=== PATIENT | female | born 1965 | race Caucasian/White ===

== ENCOUNTER 2016-11-20 10:16 | Emergency (ER) | payer MEDICAID ==
--- NOTE | 2016-11-20 10:35 | ER Document Report ---
HPI - HPI Patient complains to provider of: feel bad Onset: Other - Thursday Onset/Duration: Gradual Pain Level: 5 Context: 51-year-old nonsmoking type II diabetic (insulin) female complaining of generalized body aches with sore throat that started Thursday while she was in a car when someone smoke a cigarette. Thursday she felt more sick and Thursday she saw Dr. Madison and was told that she had a viral illness. She is not drinking much fluid with mild nausea. No vomiting. No shortness of breath or chest pain. No constipation or diarrhea. She feels like when she lays down she has rattling in her chest. Associated Symptoms: None Exacerbated by: Denies Relieved by: Denies Similar symptoms previously: Yes Recently seen / treated by doctor: Yes - ROS ROS below otherwise negative: Yes Systems Reviewed and Negative: Yes All other systems reviewed and negative - REPRODUCTIVE Reproductive: DENIES: : - DERM Skin Color: Normal Past Medical History - General Information source: Patient - Social History Smoking Status: Never Smoker Frequency of alcohol use: None Drug Abuse: None Lives with: Family Family History: CAD - correction family history pertinent Patient has suicidal ideation: No Patient has homicidal ideation: No - Past Medical History Cardiac Medical History: Reports: Hx Hypercholesterolemia, Hx Hypertension Pulmonary Medical History: Reports: Hx Pneumonia Endocrine Medical History: Reports: Hx Diabetes Mellitus Type 2 Renal/ Medical History: Denies: Hx Peritoneal Dialysis, Hx Renal Insufficiency GI Medical History: Reports: Hx Gastroesophageal Reflux Disease Musculoskeltal Medical History: Reports Hx Arthritis, Reports Hx Musculoskeletal Deformity, Reports Hx Musculoskeletal Trauma Skin Medical History: Reports Hx Psoriasis Psychiatric Medical History: Reports: Hx Depression Traumatic Medical History: Reports: Hx Fractures Past Surgical History: Reports: Hx Hysterectomy - Partial - Immunizations Immunizations up to date: Yes Hx Diphtheria, Pertussis, Tetanus Vaccination: Yes Hx Pneumococcal Vaccination: 07/20/10 Vertical Provider Document - CONSTITUTIONAL Agree With Documented VS: Yes Exam Limitations: No Limitations - INFECTION CONTROL TRAVEL OUTSIDE OF THE [place] IN LAST 30 DAYS: No - HEENT HEENT: Normocephalic. negative: Conjuctival Injection, Pharyngeal Erythema, Tympanic Membrane Red, Tympanic Membrane Bulging - NECK Neck: Supple. negative: Lymphadenopathy-Left, Lymphadenopathy-Right - RESPIRATORY Respiratory: Breath Sounds Normal, No Respiratory Distress O2 Sat by Pulse Oximetry: 96 - CARDIOVASCULAR Cardiovascular: Regular Rate, Regular Rhythm - GI/ABDOMEN Gastrointestinal: Abdomen Soft, Abdomen Non-Tender - BACK Back: Normal Inspection - MUSCULOSKELETAL/EXTREMETIES Musculoskeletal/Extremeties: HAYDEN SIMONS - NEURO Level of Consciousness: Awake, Alert, Appropriate - DERM Integumentary: Warm, Dry, No Rash Course - Re-evaluation Re-evalutation: 11/20/16 12:05 Left lower lobe pneumonia on chest x-ray will start on Levaquin and encourage by mouth fluids. Awaiting chemistry results. 11/20/16 12:[address] Duarte for insulin orders. Give 10 units regular subq now. Patient did not take her insulin at home this morning which is 90 units of Lantus twice a day and lispro 18 units plus sliding scale. 11/20/16 12:48 After the nebulizer treatment I do hear a few crackles in both spaces 11/20/16 12:50 pulse ox 95 after cough and deep breath, duoneb ordered 11/20/16 13:11 - Vital Signs Vital signs: Temp Pulse Resp BP Pulse Ox 98.4 F 103 H 20 144/63 H 96 11/20/16 10:27 11/20/16 10:27 11/20/16 10:27 11/20/16 10:27 11/20/16 10:27 - Laboratory Result Diagrams: 11/20/16 11:10 11/20/16 11:10 Discharge - Discharge Clinical Impression: hyperglycemia LLL pneumonia Qualifiers: Pneumonia type: due to unspecified organism Qualified Code(s): J18.1 - Lobar pneumonia, unspecified organism Condition: Good Disposition: HOME, SELF-CARE Instructions: Pneumonia ([facility]), Levofloxacin, Inhaled Bronchodilators ([facility]), Aerosol Spacer ([facility]), Hyperglycemia ([facility]) Additional Instructions: Drink plenty of fluids consisting of No sugar to continue to rehydrate Return to the emergency room if worse Continue antibiotics until all gone restart your insulin regiman tonight Please complete the patient satisfaction survey if you get one, and return it.. If you do not receive a survey, then you can go to the [facility] website, [email or web address] and place your comments about your very good care. Thank you very much. It was a pleasure being your medical provider today. Prescriptions: Levofloxacin 750 mg PO DAILY #6 tablet Referrals: ERICA MADISON MD [Primary Care Provider] - Follow up tomorrow
[2016-11-20] MEDS ORDERED: ACETAMINOPHEN 325 MG TABLET PO ONE ×2 (10:53→11:03)
[2016-11-20] MEDS ORDERED: ALBUTEROL SULFATE 0.083% NEB 2.5 MG/3 ML AMPUL NEB ONE (11:03)
[2016-11-20 11:22] LABS: APPEARANCE,URINE CLEAR; BILIRUBIN,URINE NEGATIVE (NEGATIVE); GLUCOSE, URINE >=500 mg/dL (NEGATIVE); KETONES,URINE 20 mg/dL (NEGATIVE); LEUKOCYTE ESTERASE,URINE NEGATIVE (NEGATIVE); NITRITE,URINE NEGATIVE (NEGATIVE); PROTEIN,URINE NEGATIVE (NEGATIVE); URINE SPECIFIC GRAVITY 1.033; UROBILINOGEN,URINE NEGATIVE mg/dL (<2.0)
[2016-11-20 11:29] LABS: ABSOLUTE BASOPHILS # (AUTO) 0.1 10^3/uL (0.0-0.2); ABSOLUTE EOSINOPHILS # (AUTO) 0.1 10^3/uL (0.0-0.6); ABSOLUTE LYMPHOCYTES (AUTO) 1.9 10^3/uL (0.5-4.7); ABSOLUTE NEUT (AUTO) 7.9 10^3/uL (1.7-8.2); BASOPHILS % (AUTO) 0.9 % (0-2); EOSINOPHILS % (AUTO) 1.3 % (0-6); HEMATOCRIT 46.5 % (36.0-47.0); HEMOGLOBIN 15.3 g/dL (12.0-15.5); HGB HCT DIFFERENCE -0.6; LYMPHOCYTES % (AUTO) 17.4 % (13-45); MEAN CORPUSCULAR HEMOGLOBIN 29.7 pg (27.0-33.4); MEAN CORPUSCULAR VOLUME 90 fl (80-97); MONOCYTES % (AUTO) 8.6 % (3-13); RED BLOOD COUNT 5.17 10^6/uL (3.72-5.28); SEGMENTED NEUTROPHILS % (AUTO) 71.8 % (42-78); WHITE BLOOD COUNT 11.1 10^3/uL (4.0-10.5)
[2016-11-20 11:48] LABS: ALANINE AMINOTRANSFERASE 21 U/L (9-52); ALBUMIN 3.5 g/dL (3.5-5.0); ALKALINE PHOSPHATASE 80 U/L (38-126); ANION GAP 14 (5-19); ASPARTATE AMINO TRANSFERASE 16 U/L (14-36); BILIRUBIN,DIRECT 0.3 mg/dL (0.0-0.4); BILIRUBIN,TOTAL 0.9 mg/dL (0.2-1.3); BLOOD UREA NITROGEN 10 mg/dL (7-20); CALCIUM 8.9 mg/dL (8.4-10.2); CARBON DIOXIDE 25 mmol/L (22-30); CHLORIDE 97 mmol/L (98-107); CREATININE RESULT 0.57 mg/dL (0.52-1.25); POTASSIUM 4.3 mmol/L (3.6-5.0); SODIUM 135.7 mmol/L (137-145); TOTAL PROTEIN 6.5 g/dL (6.3-8.2)
[2016-11-20] MEDS ORDERED: LEVOFLOXACIN 750 MG TABLET PO ONE (12:04)
[2016-11-20 12:09] LABS: GLUCOSE 417 mg/dL (75-110)
[2016-11-20] MEDS ORDERED: ALBUTEROL SULFATE HFA (90 MCG/PUFF) 8 GM MDI (1 MDI/ER DISP) IH PRN (12:10)
[2016-11-20] MEDS ORDERED: NORMAL SALINE 1000 ML 1,000 ML IV ONE (12:10)
[2016-11-20] MEDS ORDERED: INSULIN REG, HUMAN 100 UNIT/ML 3 ML VIAL (PYX) SUBCUT ONE (12:19)
[2016-11-20 13:04] VITALS: BP 105/62
[2016-11-20] MEDS ORDERED: IPRATROPIUM/ALBUTEROL 0.5-2.5 MG/3 ML AMPUL NEB ONE (13:08)
== END 2016-11-20 14:39 | disposition home or self-care (01) ==
LOC: ER 10:16
DX: J18.1 Lobar pneumonia, unspecified organism (principal); E11.65 Type 2 diabetes mellitus with hyperglycemia; R52 Pain, unspecified; J02.9 Acute pharyngitis, unspecified
CPT/HCPCS: 94640 ×2; 99284; 36415; 87086; 82962; 85025; 80053; 81001; 71020; J3490 ×3; J1815; J7030; J7620

== ENCOUNTER 2017-01-13 23:08 | Emergency (ER) | payer MEDICAID ==
[2017-01-14] MEDS ORDERED: HYDROCODONE/ACETAMINOPHEN 5-325 MG 6 TAB/DSPK PO PRN (00:29)
[2017-01-14] MEDS ORDERED: MORPHINE SULFATE IR 15 MG TABLET PO ONE (00:30)
--- NOTE | 2017-01-14 00:34 | ER Document Report ---
ED General - General Chief Complaint: Leg Pain Stated Complaint: LEG PAIN Time Seen by Provider: 01/14/17 00:09 Notes: Patient is a 51-year-old female who presents with 1 week of left lower extremity pain. Does describe as severe, constant, throbbing pain to her left leg. Nothing improves or worsens the pain. States the pain is mostly located in her calf and behind her knee. Denies any acute injury. No history of similar symptoms in the past. She denies any focal weakness, numbness or difficulty emanating in the leg. She has not seen her primary care doctor regarding these concerns. She has no history of a DVT or pulmonary embolus in the past. TRAVEL OUTSIDE OF THE [place] IN LAST 30 DAYS: No - Related Data Allergies/Adverse Reactions: exenatide [From [employer]] Allergy (Intermediate, Verified 11/20/16 10:25) Hives Past Medical History - General Information source: Patient - Social History Smoking Status: Never Smoker Frequency of alcohol use: None Drug Abuse: None Lives with: Family Family History: CAD - correction family history pertinent Patient has suicidal ideation: No Patient has homicidal ideation: No - Past Medical History Cardiac Medical History: Reports: Hx Hypercholesterolemia, Hx Hypertension Pulmonary Medical History: Reports: Hx Pneumonia Endocrine Medical History: Reports: Hx Diabetes Mellitus Type 2 Renal/ Medical History: Denies: Hx Peritoneal Dialysis, Hx Renal Insufficiency GI Medical History: Reports: Hx Gastroesophageal Reflux Disease Musculoskeltal Medical History: Reports Hx Arthritis, Reports Hx Musculoskeletal Deformity, Reports Hx Musculoskeletal Trauma Skin Medical History: Reports Hx Psoriasis Psychiatric Medical History: Reports: Hx Depression Traumatic Medical History: Reports: Hx Fractures Past Surgical History: Reports: Hx Hysterectomy - Partial - Immunizations Immunizations up to date: Yes Hx Diphtheria, Pertussis, Tetanus Vaccination: Yes Hx Pneumococcal Vaccination: 07/20/10 Review of Systems - Review of Systems Notes: Constitutional: Negative for fever. HENT: Negative for sore throat. Eyes: Negative for visual changes. Cardiovascular: Negative for chest pain. Respiratory: Negative for shortness of breath. Gastrointestinal: Negative for abdominal pain, vomiting or diarrhea. Genitourinary: Negative for dysuria. Musculoskeletal: Positive for left leg pain Skin: Negative for rash. Neurological: Negative for headaches, weakness or numbness. 10 point ROS negative except as marked above and in HPI. Physical Exam - Vital signs Vitals: Temp Pulse Resp BP Pulse Ox 97.6 F 89 18 128/74 H 96 01/13/17 23:12 01/13/17 23:12 01/13/17 23:12 01/13/17 23:12 01/13/17 23:12 Interpretation: Normal Notes: PHYSICAL EXAMINATION: GENERAL: Well-appearing, well-nourished and in no acute distress. HEAD: Atraumatic, normocephalic. EYES: Pupils equal round and reactive to light, extraocular movements intact, sclera anicteric, conjunctiva are normal. ENT: nares patent, oropharynx clear without exudates. Moist mucous membranes. NECK: Normal range of motion, supple without lymphadenopathy LUNGS: Breath sounds clear to auscultation bilaterally and equal. No wheezes rales or rhonchi. HEART: Regular rate and rhythm without murmurs ABDOMEN: Soft, nontender, normoactive bowel sounds. No guarding, no rebound. No masses appreciated. EXTREMITIES: Normal range of motion, no pitting or edema. No cyanosis. Pain on palpitation of the left popliteal fossa and left NEUROLOGICAL: No focal neurological deficits. Moves all extremities spontaneously and on command. PSYCH: Normal mood, normal affect. SKIN: Warm, Dry, normal turgor, no rashes or lesions noted. Course - Re-evaluation Re-evalutation: 01/14/17 00:28 Patient presents with left lower extremity pain that is been present for the past 1 week and getting progressively worse. No significant exam findings although patient does have exquisite pain on palpitation of the popliteal fossa concerning for an acute DVT. Unfortunately this time I do not have the availability of an ultrasound to exclude this diagnosis. I have offered to keep the patient here overnight so we can obtain a study in the morning that she has declined stating she would rather return in the a.m. to get the study completed and has verbalized the critical importance of this and the potential serious confluence of not following through with this plan. No evidence of cellulitis, myositis, or acute injury on examination. She has a strong 2+ DP pulse bilaterally. Full dorsi and plantar flexion. - Vital Signs Vital signs: Temp Pulse Resp BP Pulse Ox 97.6 F 84 18 129/76 H 99 01/13/17 23:12 01/14/17 00:43 01/14/17 00:43 01/14/17 00:43 01/14/17 00:43 Discharge - Discharge Clinical Impression: Left leg pain Condition: Good Disposition: HOME, SELF-CARE Additional Instructions: You need to return in the morning to get an ultrasound of your left leg to be sure that you do not have a clot. Please take the [place] your sent home with as needed for severe pain tonight. Return sooner if you develop worsening pain, pass out, or any other symptoms that are concerning to you. Referrals: ERICA MADISON MD [Primary Care Provider] - Follow up as needed
[2017-01-14 00:44] VITALS: BP 129/76
== END 2017-01-14 00:43 | disposition home or self-care (01) ==
LOC: ER 23:08
DX: M79.605 Pain in left leg (principal); E78.00 Pure hypercholesterolemia, unspecified; I10 Essential (primary) hypertension; E11.9 Type 2 diabetes mellitus without complications; Z90.710 Acquired absence of both cervix and uterus
CPT/HCPCS: 99283

== ENCOUNTER → 2017-02-17 | Outpatient (CLI) | payer MEDICAID ==
--- NOTE | 2017-02-17 13:59 | RADIOLOGY REPORT (SQ) ---
EXAM DESCRIPTION: VENOUS UNILATERAL LOWER COMPLETED DATE/TIME: 02/17/2017 1:49 pm REASON FOR STUDY: LLE SWELLING R22.42 LOCALIZED SWELLING, MASS AND LUMP, LEFT LOWER LIMB COMPARISON: 10/17/2015. TECHNIQUE: Dynamic and static lewis scale and color images acquired of the left leg venous system. Se lected spectral images acquired with additional compression and augmentation maneuvers. The contralat eral common femoral vein and saphenofemoral junction were also imaged. Images stored on PACS. LIMITATIONS: None. FINDINGS: COMMON FEMORAL: Normal phasicity, compression and augmentation. No visualized echogenic ma terial on lewis scale. No defects on color images. FEMORAL: Normal compression and augmentation. No visualized echogenic material on lewis scale. No defe cts on color images. POPLITEAL: Normal compression, augmentation. No visualized echogenic material on lewis scale. No defec ts on color images. CALF VESSELS: Normal compression, augmentation. No visualized echogenic material on lewis scale. No de fects on color images. GSV and SSV: Normal compression, augmentation. No visualized echogenic material on lewis scale. No def ects on color images. ANY DEEP VENOUS INSUFFICIENCY: Not evaluated. ANY EVIDENCE OF POPLITEAL CYST: No. OTHER: No other significant finding. CONTRALATERAL COMMON FEMORAL VEIN AND SAPHENOFEMORAL JUNCTION: Normal phasicity, compression and augmentation. No visualized echogenic material on lewis scale. No de fects on color images. IMPRESSION: NO EVIDENCE DVT OR SVT IN THE LEFT LEG. COMMENT: Preliminary report was called by the technologist to the referring clinician's office at t he time of patient visit. TECHNICAL DOCUMENTATION: JOB ID: [id number] [employer] All Rights Reserved
== END ==
LOC: SP 12:45
PROVIDERS: ATTEND Internal Medicine
DX: R22.42 Localized swelling, mass and lump, left lower limb (principal)
CPT/HCPCS: 93971

== ENCOUNTER 2017-04-12 08:47 | Inpatient (IN) | payer MEDICAID ==
[2017-04-12] MEDS ORDERED: ASPIRIN 81 MG TABLET, CHEWABLE PO ONE (09:15)
--- NOTE | 2017-04-12 09:15 | ER Document Report ---
ED Medical Screen (RME) - General Chief Complaint: Weakness Stated Complaint: WEAKNESS Time Seen by Provider: 04/12/17 09:07 Mode of Arrival: Ambulatory Information source: Patient Notes: 51 yr old diabetic presents with 1 week duration of weakness. Pt denies any fever, admits to chest pain I have greeted and performed a rapid initial assessment of this patient. A comprehensive ED assessment and evaluation of the patient, analysis of test results and completion of the medical decision making process will be conducted by additional ED providers. PHYSICAL EXAMINATION: GENERAL: Well-appearing, well-nourished and in no acute distress. HEAD: Atraumatic, normocephalic. EYES: Pupils equal round extraocular movements intact, conjunctiva are normal. ENT: Nares patent NECK: Normal range of motion LUNGS: No respiratory distress Musculoskeletal: Normal range of motion NEUROLOGICAL: Normal speech, normal gait. PSYCH: Normal mood, normal affect. SKIN: Warm, Dry, normal turgor, no rashes or lesions noted. TRAVEL OUTSIDE OF THE [place] IN LAST 30 DAYS: No - Related Data Allergies/Adverse Reactions: exenatide [From [employer]] Allergy (Intermediate, Verified 04/12/17 08:51) Hives Past Medical History - Past Medical History Cardiac Medical History: Reports: Hx Hypercholesterolemia, Hx Hypertension Pulmonary Medical History: Reports: Hx Pneumonia Endocrine Medical History: Reports: Hx Diabetes Mellitus Type 2 Renal/ Medical History: Denies: Hx Peritoneal Dialysis, Hx Renal Insufficiency GI Medical History: Reports: Hx Gastroesophageal Reflux Disease Musculoskeltal Medical History: Reports Hx Arthritis, Reports Hx Musculoskeletal Deformity, Reports Hx Musculoskeletal Trauma Skin Medical History: Reports Hx Psoriasis Psychiatric Medical History: Reports: Hx Depression Traumatic Medical History: Reports: Hx Fractures Past Surgical History: Reports: Hx Hysterectomy - Partial - Immunizations Immunizations up to date: Yes Hx Diphtheria, Pertussis, Tetanus Vaccination: Yes Physical Exam - Vital signs Vitals: Temp Pulse Resp BP Pulse Ox 98.3 F 109 H 20 156/86 H 97 04/12/17 08:51 04/12/17 08:51 04/12/17 08:51 04/12/17 08:51 04/12/17 08:51 Course - Vital Signs Vital signs: Temp Pulse Resp BP Pulse Ox 98.3 F 109 H 20 156/86 H 97 04/12/17 08:51 04/12/17 08:51 04/12/17 08:51 04/12/17 08:51 04/12/17 08:51
[2017-04-12 09:49] LABS: ABSOLUTE BASOPHILS # (AUTO) 0.1 10^3/uL (0.0-0.2); ABSOLUTE EOSINOPHILS # (AUTO) 0.1 10^3/uL (0.0-0.6); ABSOLUTE LYMPHOCYTES (AUTO) 1.4 10^3/uL (0.5-4.7); ABSOLUTE MONOCYTES (AUTO) 0.9 10^3/uL (0.1-1.4); ABSOLUTE NEUT (AUTO) 14.1 10^3/uL (1.7-8.2); BASOPHILS % (AUTO) 0.7 % (0-2); EOSINOPHILS % (AUTO) 0.8 % (0-6); HEMATOCRIT 48.8 % (36.0-47.0); HEMOGLOBIN 16.6 g/dL (12.0-15.5); LYMPHOCYTES % (AUTO) 8.5 % (13-45); MEAN CORPUSCULAR HEMOGLOBIN 30.3 pg (27.0-33.4); MEAN CORPUSCULAR HGB CONC 33.9 g/dL (32.0-36.0); MEAN CORPUSCULAR VOLUME 90 fl (80-97); MONOCYTES % (AUTO) 5.5 % (3-13); RED BLOOD COUNT 5.46 10^6/uL (3.72-5.28); RED CELL DISTRIBUTION WIDTH 13.9 % (11.5-14.0); SEGMENTED NEUTROPHILS % (AUTO) 84.5 % (42-78); WHITE BLOOD COUNT 16.7 10^3/uL (4.0-10.5)
--- NOTE | 2017-04-12 09:52 | EKG REPORT ---
SEVERITY:- OTHERWISE NORMAL ECG - SINUS TACHYCARDIA : Confirmed by: Tayo De La O MD 12-Apr-2017 09:50:34
[2017-04-12 10:06] LABS: ALANINE AMINOTRANSFERASE 27 U/L (9-52); ALBUMIN 4.4 g/dL (3.5-5.0); ALKALINE PHOSPHATASE 149 U/L (38-126); ANION GAP 16 (5-19); ASPARTATE AMINO TRANSFERASE 21 U/L (14-36); BILIRUBIN,DIRECT 0.5 mg/dL (0.0-0.4); BILIRUBIN,TOTAL 0.9 mg/dL (0.2-1.3); BLOOD UREA NITROGEN 9 mg/dL (7-20); CALCIUM 9.7 mg/dL (8.4-10.2); CARBON DIOXIDE 24 mmol/L (22-30); CHLORIDE 99 mmol/L (98-107); CREATINE KINASE 57 U/L (30-135); CREATININE RESULT 0.59 mg/dL (0.52-1.25); GLUCOSE 320 mg/dL (75-110); POTASSIUM 3.9 mmol/L (3.6-5.0); SODIUM 138.8 mmol/L (137-145); TOTAL PROTEIN 7.8 g/dL (6.3-8.2)
--- NOTE | 2017-04-12 10:06 | RADIOLOGY REPORT (SQ) ---
EXAM DESCRIPTION: CHEST SINGLE VIEW COMPLETED DATE/TIME: 04/12/2017 9:51 am REASON FOR STUDY: chest pain COMPARISON: November 2016 EXAM PARAMETERS: NUMBER OF VIEWS: One view. TECHNIQUE: Single frontal radiographic view of the chest acquired. RADIATION DOSE: NA LIMITATIONS: None. FINDINGS: LUNGS AND PLEURA: No opacities, masses or pneumothorax. No pleural effusion. MEDIASTINUM AND HILAR STRUCTURES: No masses. Contour normal. HEART AND VASCULAR STRUCTURES: Heart normal in size. Normal vasculature. BONES: No acute findings. HARDWARE: None in the chest. OTHER: No other significant finding. IMPRESSION: NO ACUTE RADIOGRAPHIC FINDING IN THE CHEST. TECHNICAL DOCUMENTATION: JOB ID: [id number]
[2017-04-12] MEDS ORDERED: DIPHENHYDRAMINE HCL 50 MG/ML VIAL IV ONE (10:09)
[2017-04-12] MEDS ORDERED: NORMAL SALINE 1000 ML 1,000 ML IV PRN ×2 (10:09→14:20)
[2017-04-12] MEDS ORDERED: METOCLOPRAMIDE HCL INJ/PF 10 MG/2 ML SDV IV ONE (10:09)
[2017-04-12] MEDS ORDERED: OXYCODONE-ACETAMINOPHEN 5-325 MG TABLET PO ONE (10:10)
--- NOTE | 2017-04-12 10:16 | ER Document Report ---
ED General - General Chief Complaint: Weakness Stated Complaint: WEAKNESS Time Seen by Provider: 04/12/17 09:07 Mode of Arrival: Ambulatory Information source: Patient Notes: This is a 51-year-old female with a history of insulin requiring diabetes who presents to the emergency room with subjective fevers, chills, muscle aches, nasal congestion, nausea, decreased p.o. intake and erythema to the left fourth toe. Patient denies any trauma to the feet. Patient states she had seen Dr. Kaur on (3 days ago) and was given an injection for an elevated A1c. She states that her symptoms started shortly thereafter. TRAVEL OUTSIDE OF THE [place] IN LAST 30 DAYS: No - HPI Onset: Yesterday Onset/Duration: Gradual Quality of pain: Dull Severity: Moderate Pain Level: 3 Associated symptoms: Chills, Fever, Nausea, Vomiting Exacerbated by: Denies Relieved by: Denies Similar symptoms previously: No Recently seen / treated by doctor: Yes - Related Data Allergies/Adverse Reactions: exenatide [From [employer]] Allergy (Intermediate, Verified 04/12/17 08:51) Hives Home Medications: Current Home Medications Canagliflozin/Metformin HCl [Invokamet 150-1,000 mg Tablet] 1 tab PO BID [History] Insulin Aspart [Novolog Flexpen] 23 units SUBCUT MEALS 04/12/17 [History] Insulin Glargine,Hum.rec.anlog [Lantus Solostar] 90 units SUBCUT Q12 04/12/17 [ History] Oxycodone HCl/Acetaminophen [Percocet 5-325 mg Tablet] 1 tab PO Q8HP PRN [History] Pregabalin [Lyrica 75 mg Capsule] 75 mg PO Q8 04/12/17 [History] Sertraline HCl [Zoloft 50 mg Tablet] 50 mg PO DAILY 04/12/17 [History] Past Medical History - General Information source: Patient - Social History Smoking Status: Never Smoker Cigarette use (# per day): No Chew tobacco use (# tins/day): No Frequency of alcohol use: None Drug Abuse: None Lives with: Family Family History: CAD - correction family history pertinent Patient has suicidal ideation: No Patient has homicidal ideation: No - Past Medical History Cardiac Medical History: Reports: Hx Hypercholesterolemia, Hx Hypertension Pulmonary Medical History: Reports: Hx Pneumonia Endocrine Medical History: Reports: Hx Diabetes Mellitus Type 2 Renal/ Medical History: Denies: Hx Peritoneal Dialysis, Hx Renal Insufficiency GI Medical History: Reports: Hx Gastroesophageal Reflux Disease Musculoskeltal Medical History: Reports Hx Arthritis, Reports Hx Musculoskeletal Deformity, Reports Hx Musculoskeletal Trauma Skin Medical History: Reports Hx Psoriasis Psychiatric Medical History: Reports: Hx Depression Traumatic Medical History: Reports: Hx Fractures Past Surgical History: Reports: Hx Hysterectomy - Partial - Immunizations Immunizations up to date: Yes Hx Diphtheria, Pertussis, Tetanus Vaccination: Yes Hx Pneumococcal Vaccination: 07/20/10 Review of Systems - Review of Systems Constitutional: Chills, Fever EENT: No symptoms reported Cardiovascular: No symptoms reported Respiratory: No symptoms reported Gastrointestinal: See HPI, Nausea, Vomiting Genitourinary: No symptoms reported Female Genitourinary: No symptoms reported Musculoskeletal: See HPI Skin: See HPI Hematologic/Lymphatic: No symptoms reported Neurological/Psychological: No symptoms reported Physical Exam - Vital signs Vitals: Temp Pulse Resp BP Pulse Ox 98.3 F 109 H 20 156/86 H 97 04/12/17 08:51 04/12/17 08:51 04/12/17 08:51 04/12/17 08:51 04/12/17 08:51 Notes: Physical exam: GENERAL: 51-year-old female, alert and oriented 3, appears uncomfortable. HEAD: Atraumatic, normocephalic. EYES: Pupils equal round and reactive to light, extraocular movements intact, sclera anicteric, conjunctiva are normal. ENT: TMs normal, nasal congestion, oropharynx clear without exudates. Moist mucous membranes. NECK: Normal range of motion, supple without any stiffness. LUNGS: Breath sounds clear to auscultation bilaterally and equal. No wheezes rales or rhonchi. HEART: Regular rate and rhythm without murmurs, rubs or gallops. ABDOMEN: Soft, normoactive bowel sounds. No tenderness to palpation. No guarding, no rebound. No masses appreciated. EXTREMITIES: Normal range of motion, no pitting or edema. Patient does have erythema to the fourth toe without any obvious discharge or foul smell. She does have bleeding from the left big toe nail bed and the nail has been removed (by the patient). Patient states she has been cutting her own nails. I have advised caution because of her diabetes. Erythema to the NEUROLOGICAL: No meningismus. No photophobia. Cranial nerves II through XII grossly intact. Normal speech, moving all extremities. PSYCH: Normal mood, normal affect. SKIN: Left fourth toe erythema. Course - Vital Signs Vital signs: Temp Pulse Resp BP Pulse Ox 98.3 F 94 16 115/57 L 95 04/12/17 14:20 04/12/17 14:20 04/12/17 14:20 04/12/17 14:20 04/12/17 14:20 - Laboratory Result Diagrams: 04/12/17 09:30 04/12/17 09:30 Laboratory results interpreted by me: 04/12/17 04/12/17 04/12/17 09:30 09:30 10:14 WBC 16.7 H RBC 5.46 H Hgb 16.6 H Hct 48.8 H Seg Neutrophils % 84.5 H Lymphocytes % 8.5 L Absolute Neutrophils 14.1 H ESR 32 H Glucose 320 H Direct Bilirubin 0.5 H Alkaline Phosphatase 149 H Urine Glucose (UA) Urine Blood 04/12/17 11:01 WBC RBC Hgb Hct Seg Neutrophils % Lymphocytes % Absolute Neutrophils ESR Glucose Direct Bilirubin Alkaline Phosphatase Urine Glucose (UA) >=500 H Urine Blood SMALL H - Diagnostic Test Radiology reviewed: Image reviewed, Reports reviewed - Chest x-ray shows no infiltrates - EKG Interpretation by Me Rate: Tachycardia Rhythm: NSR - EKG shows sinus tachycardia without any significant change compared to an EKG November 19, 2015 Critical Care Note - Critical Care Note Total time excluding time spent on procedures (mins): 60 Discharge - Discharge Clinical Impression: Vomiting with nausea, Diabetic foot Condition: Stable Disposition: ADMITTED INPATIENT Admitting Provider: El gage is covering Unit Admitted: Telemetry
[2017-04-12 10:18] LABS: CREATINE KINASE MB 0.47 ng/mL (<4.55)
[2017-04-12 10:20] LABS: TROPONIN I < 0.012 ng/mL
--- NOTE | 2017-04-12 11:22 | RADIOLOGY REPORT (SQ) ---
EXAM DESCRIPTION: FOOT LEFT COMPLETE COMPLETED DATE/TIME: 04/12/2017 11:01 am REASON FOR STUDY: diabetric-4th toe erythema COMPARISON: None. NUMBER OF VIEWS: Three views. TECHNIQUE: AP, lateral and oblique radiographic images acquired of the left foot. LIMITATIONS: None. FINDINGS: MINERALIZATION: Normal. BONES: No acute fracture or dislocation. No worrisome bone lesions. JOINTS: Degenerative changes are identified at the level of the ankle articulation. SOFT TISSUES: No soft tissue swelling. No foreign body. OTHER: No other significant finding. IMPRESSION: No significant findings. TECHNICAL DOCUMENTATION: JOB ID: [id number] [employer]- All Rights Reserved
[2017-04-12 11:27] LABS: APPEARANCE,URINE CLEAR; BILIRUBIN,URINE NEGATIVE (NEGATIVE); GLUCOSE, URINE >=500 mg/dL (NEGATIVE); KETONES,URINE NEGATIVE (NEGATIVE); LEUKOCYTE ESTERASE,URINE NEGATIVE (NEGATIVE); NITRITE,URINE NEGATIVE (NEGATIVE); PROTEIN,URINE NEGATIVE (NEGATIVE); URINE SPECIFIC GRAVITY 1.032; UROBILINOGEN,URINE NEGATIVE mg/dL (<2.0)
[2017-04-12] MEDS ORDERED: PIPERACILLIN/TAZOBACTAM 3.375 GM VIAL IV ONE (12:04)
[2017-04-12] MEDS ORDERED: ACETAMINOPHEN 325 MG TABLET PO PRN (14:20)
[2017-04-12] MEDS ORDERED: DEXTROSE 40% GEL 15 GM TUBE PO PRN ×2 (14:23)
[2017-04-12] MEDS ORDERED: DEXTROSE 50%-WATER 25 GM/50 ML DISP.SYRIN IV PRN ×2 (14:23)
[2017-04-12] MEDS ORDERED: GLUCAGON,HUMAN RECOMB 1 MG INJ IM PRN (14:23)
[2017-04-12] MEDS ORDERED: INSULIN LISPRO 100 UNIT/ML 3 ML VIAL SUBCUT PRN (14:23)
--- NOTE | 2017-04-12 14:51 | PDOC H&P ---
History of Present Illness Admission Date/PCP: 04/12/17 13:20 GRANT PIERRE MD Patient complains of: Feeling sick and nausea History of Present Illness: NATALIIA SALINAS is a 51 year old female This is a 51-year-old female with a significant history of the type 2 diabetes mellitus with insulin-dependent and history of the hypertension's hyperlipidemia and chronic back pain came to the emergency departments was feeling sick this since morning emesis last night According to the patient's to for some nauseating and the patient also complained of some headache. Patient's denied any chills or any fever Patient's denied any bloody wheezing Patient's denied any loose stool Quadrant with the patient she went to the doctor O's office last and he give her injections most likely a byduran is GLP-1 for the type 2 diabetes mellitus and after 48 hours patient started feeling sickness like nausea and unable to eat Have a history of the side effect with the Byetta in the past which is to describe the stomach upsets and the the rash Patient's other than that to currently denied any headache Patient's denied any chest pain No abdominal pain today In the emergency department patient's white count is 16 and pretty much all other workup is negative decided to admit for further evaluation and treatment Past Medical History Cardiac Medical History: Reports: Hyperlipidema, Hypertension Pulmonary Medical History: Reports: Pneumonia Endocrine Medical History: Reports: Diabetes Mellitus Type 2 GI Medical History: Reports: Gastroesophageal Reflux Disease Musculoskeltal Medical History: Reports: Arthritis Skin Medical History: Reports: Psoriasis Psychiatric Medical History: Reports: Depression Past Surgical History Past Surgical History: Reports: Hysterectomy - Partial Social History Smoking Status: Never Smoker Frequency of Alcohol Use: None Hx Recreational Drug Use: Yes Drugs: Cocaine Hx Prescription Drug Abuse: No - Advance Directive Resuscitation Status: Full Code Family History Family History: Reviewed & Not Pertinent, CAD - correction family history pertinent Parental Family History Reviewed: Yes Children Family History Reviewed: Yes Sibling(s) Family History Reviewed.: Yes Medication/Allergy Home Medications: Canagliflozin/Metformin HCl [Invokamet 150-1,000 mg Tablet] 1 tab PO BID Insulin Aspart [Novolog Flexpen] 23 units SUBCUT MEALS 04/12/17 Insulin Glargine,Hum.rec.anlog [Lantus Solostar] 90 units SUBCUT Q12 04/12/17 Oxycodone HCl/Acetaminophen [Percocet 5-325 mg Tablet] 1 tab PO Q8HP PRN Pregabalin [Lyrica 75 mg Capsule] 75 mg PO Q8 04/12/17 Sertraline HCl [Zoloft 50 mg Tablet] 50 mg PO DAILY 04/12/17 Allergies/Adverse Reactions: exenatide [From Byetta] Allergy (Intermediate, Verified 04/12/17 08:51) Hives Review of Systems Constitutional: PRESENT: fatigue, headache(s), weakness. ABSENT: chills, fever( s), weight gain, weight loss Eyes: ABSENT: visual disturbances Ears: ABSENT: hearing changes Cardiovascular: ABSENT: chest pain, dyspnea on exertion, edema, orthropnea, palpitations Respiratory: ABSENT: cough, hemoptysis Gastrointestinal: ABSENT: abdominal pain, constipation, diarrhea, hematemesis, hematochezia, nausea, vomiting Genitourinary: ABSENT: dysuria, hematuria Musculoskeletal: ABSENT: joint swelling Integumentary: ABSENT: rash, wounds Neurological: ABSENT: abnormal gait, abnormal speech, confusion, dizziness, focal weakness, syncope Psychiatric: ABSENT: anxiety, depression, homidical ideation, suicidal ideation Endocrine: ABSENT: cold intolerance, heat intolerance, menstrual abnormalities, polydipsia, polyuria Hematologic/Lymphatic: ABSENT: easy bleeding, easy bruising, lymphadenopathy Physical Exam Vital Signs: Temp Pulse Resp BP Pulse Ox 98.9 F 109 H 16 156/86 H 98 04/12/17 10:23 04/12/17 08:51 04/12/17 14:00 04/12/17 08:51 04/12/17 14:00 General appearance: PRESENT: no acute distress, well-developed, well-nourished Head exam: PRESENT: atraumatic, normocephalic Eye exam: PRESENT: conjunctiva pink, EOMI, PERRLA. ABSENT: scleral icterus Ear exam: PRESENT: normal external ear exam Mouth exam: PRESENT: moist, tongue midline Neck exam: PRESENT: full ROM. ABSENT: carotid bruit, JVD, lymphadenopathy, thyromegaly Respiratory exam: PRESENT: clear to auscultation lamar Cardiovascular exam: PRESENT: RRR. ABSENT: diastolic murmur, rubs, systolic murmur Pulses: PRESENT: normal dorsalis pedis pul, +2 pedal pulses bilateral Vascular exam: PRESENT: normal capillary refill GI/Abdominal exam: PRESENT: normal bowel sounds, soft. ABSENT: distended, guarding, mass, organolmegaly, rebound, tenderness Rectal exam: PRESENT: deferred Extremities exam: ABSENT: pedal edema Additional comments: On the left foot on the third toe some mild redness is present Musculoskeletal exam: PRESENT: ambulatory Neurological exam: PRESENT: alert, awake, oriented to person, oriented to place , oriented to time, oriented to situation, reflexes normal, CN II-XII grossly intact, normal gait. ABSENT: motor sensory deficit Psychiatric exam: PRESENT: appropriate affect, normal mood. ABSENT: homicidal ideation, suicidal ideation Skin exam: PRESENT: dry, intact, warm. ABSENT: cyanosis, rash Results Laboratory Results: 04/12/17 13:40 Troponin I < 0.012 Impressions: Chest X-Ray 04/12/17 09:15 IMPRESSION: NO ACUTE RADIOGRAPHIC FINDING IN THE CHEST. Foot X-Ray 04/12/17 10:11 IMPRESSION: No significant findings. Assessment & Plan - Diagnosis (1) Weakness Plan: Possible underlying sepsis versus medication side effect (2) Leukocytosis Qualifiers: Leukocytosis type: unspecified Qualified Code(s): D72.829 - Elevated white blood cell count, unspecified Is this a current diagnosis for this admission?: Yes Plan: continues to IV antibiotic will get the blood culture urine culture (3) Hypertension Qualifiers: Hypertension type: essential hypertension Qualified Code(s): I10 - Essential (primary) hypertension Is this a current diagnosis for this admission?: Yes Plan: cont current medications (4) Type 2 diabetes mellitus Qualifiers: Diabetes mellitus complication status: with unspecified complications Is this a current diagnosis for this admission?: Yes Plan: Continues a sliding scale and insulin I believe patient unable to handle GLP-1 her side effect in the past and again possible side effect this time (5) Cellulitis Qualifiers: Site of cellulitis: unspecified site Qualified Code(s): L03.90 - Cellulitis , unspecified Is this a current diagnosis for this admission?: Yes Plan: Left foot cellulitis continues to IV antibiotic (6) GERD (gastroesophageal reflux disease) Qualifiers: Esophagitis presence: without esophagitis Qualified Code(s): K21.9 - Gastro -esophageal reflux disease without esophagitis Is this a current diagnosis for this admission?: Yes Plan: Continues a PPI - Time Time Spent: 30 to 50 Minutes Medications reviewed and adjusted accordingly: Yes Anticipated discharge: Home Within: Other - Inpatient Certification Medical Necessity: Need Close Monitoring Due to Risk of Patient Decompensation, Need For IV Fluids, Need for IV Antibiotics Post Hospital Care: D/C Lokie Engineer Documentation - Plan Summary Plan Summary: We will continues to IV antibiotic wait for all culture and discontinues the patient's GLP-1 and continues to monitor the patient
[2017-04-12 15:37] LABS: CREATINE KINASE MB 0.31 ng/mL (<4.55)
[2017-04-12 15:40] LABS: TROPONIN I < 0.012 ng/mL
[2017-04-12] MEDS ORDERED: LANSOPRAZOLE 15 MG TAB.RAP.DR PO ONE (16:00)
[2017-04-12] MEDS ORDERED: INSULIN ASPART SUBCUT SCH (17:00)
[2017-04-12] MEDS: PIPERACILLIN SODIUM/TAZOBACTAM 3.375 GM in NORMAL SALINE 100 ML IV SCH ×2 (17:22→23:22)
[2017-04-12] MEDS: INSULIN LISPRO 100 UNIT/ML 3 ML VIAL SUBCUT SCH (17:23)
[2017-04-12] MEDS ORDERED: [UNRECOGNIZED DRUG - OTHER] PO SCH (18:00)
[2017-04-12] MEDS ORDERED: METFORMIN HCL PO SCH (18:00)
[2017-04-12] MEDS ORDERED: CANAGLIFLOZIN PO SCH (18:00)
--- NOTE | 2017-04-12 20:35 | RADIOLOGY REPORT (SQ) ---
EXAM DESCRIPTION: CT ABD/PELVIS NO ORAL OR IV COMPLETED DATE/TIME: 04/12/2017 4:39 pm REASON FOR STUDY: nausea/vomiting/leucocytosis COMPARISON: 04/13/2015 TECHNIQUE: CT scan of the abdomen and pelvis performed without intravenous or oral contrast. Images reviewed with lung, soft tissue, and bone windows. Reconstructed coronal and sagittal MPR images revi ewed. All images stored on PACS. All CT scanners at this facility use dose modulation, iterative reconstruction, and/or weight based d osing when appropriate to reduce radiation dose to as low as reasonably achievable (ALARA). [facility]: Dose Right [facility]: CareDose [facility]: Dose Right [facility]: Teradose 4D [facility]: [employer] RADIATION DOSE: Up-to-date CT equipment and radiation dose reduction techniques were employed. CTDIv ol: 37.1 mGy. DLP: 2150 mGy-cm.mGy. LIMITATIONS: None. FINDINGS: LOWER CHEST: No significant findings. No nodules or infiltrates. NON-CONTRASTED LIVER, SPLEEN, ADRENALS: Diffuse in lower fatty liver. Spleen and adrenal glands with out significant findings. PANCREAS: No masses. No peripancreatic inflammatory changes. GALLBLADDER: No identified stones by CT criteria. No inflammatory changes to suggest cholecystitis. RIGHT KIDNEY AND URETER: No suspicious masses. Assessment limited by lack of IV contrast. No signif icant calcifications. No hydronephrosis or hydroureter. LEFT KIDNEY AND URETER: No suspicious masses. Assessment limited by lack of IV contrast. No signifi cant calcifications. No hydronephrosis or hydroureter. AORTA AND RETROPERITONEUM: No aneurysm. No retroperitoneal masses or adenopathy. BOWEL AND PERITONEAL CAVITY: No obvious masses or inflammatory changes. No free fluid. APPENDIX: Normal. PELVIS, BLADDER, AND ABDOMINAL WALL:No abnormal masses. No free fluid. Bladder normal. BONES: Grade 1 spondylolisthesis L5 on S1 with bilateral spondylolysis. OTHER: No other significant finding. IMPRESSION: Enlarged fatty liver. Grade 1 spondylolisthesis L5 on S1. COMMENT: Quality ID # [id number]: Final reports with documentation of one or more dose reduction techniques (e.g., Automated exposure control, adjustment of the mA and/or kV according to patient size, use of iterative reconstruction technique) TECHNICAL DOCUMENTATION: JOB ID: [id number] [employer]- All Rights Reserved
[2017-04-12 21:05] LABS: CREATINE KINASE MB 0.24 ng/mL (<4.55)
[2017-04-12 21:06] LABS: TROPONIN I < 0.012 ng/mL
[2017-04-12] MEDS: INSULIN GLARGINE,HUM.REC.ANLOG 1,000 UNIT/10 ML UNIT SUBCUT SCH (21:36)
[2017-04-12] MEDS: PREGABALIN 75 MG CAPSULE PO SCH (21:37)
[2017-04-13 02:48] LABS: ABSOLUTE EOSINOPHILS # (AUTO) 0.3 10^3/uL (0.0-0.6); ABSOLUTE MONOCYTES (AUTO) 1.2 10^3/uL (0.1-1.4); ABSOLUTE NEUT (AUTO) 10.7 10^3/uL (1.7-8.2); BASOPHILS % (AUTO) 0.1 % (0-2); HEMATOCRIT 41.8 % (36.0-47.0); HGB HCT DIFFERENCE 0.5; LYMPHOCYTES % (AUTO) 19.8 % (13-45); MEAN CORPUSCULAR HEMOGLOBIN 29.9 pg (27.0-33.4); MEAN CORPUSCULAR HGB CONC 33.7 g/dL (32.0-36.0); MEAN CORPUSCULAR VOLUME 89 fl (80-97); MONOCYTES % (AUTO) 7.9 % (3-13); RED BLOOD COUNT 4.72 10^6/uL (3.72-5.28); RED CELL DISTRIBUTION WIDTH 13.5 % (11.5-14.0); SEGMENTED NEUTROPHILS % (AUTO) 70.2 % (42-78); WHITE BLOOD COUNT 15.3 10^3/uL (4.0-10.5)
[2017-04-13 02:49] LABS: HEMOGLOBIN 14.1 g/dL (12.0-15.5)
[2017-04-13 03:05] LABS: ANION GAP 9 (5-19); BLOOD UREA NITROGEN 11 mg/dL (7-20); CALCIUM 8.6 mg/dL (8.4-10.2); CARBON DIOXIDE 25 mmol/L (22-30); CHLORIDE 105 mmol/L (98-107); CREATININE RESULT 0.67 mg/dL (0.52-1.25); GLUCOSE 200 mg/dL (75-110); MAGNESIUM 1.7 mg/dL (1.6-2.3); POTASSIUM 3.2 mmol/L (3.6-5.0); SODIUM 139.3 mmol/L (137-145)
[2017-04-13 03:16] LABS: CREATINE KINASE MB 0.24 ng/mL (<4.55)
[2017-04-13 03:21] LABS: TROPONIN I < 0.012 ng/mL
[2017-04-13] MEDS: PIPERACILLIN SODIUM/TAZOBACTAM 3.375 GM in NORMAL SALINE 100 ML IV SCH ×3 (05:53→17:09)
[2017-04-13] MEDS: PREGABALIN 75 MG CAPSULE PO SCH ×3 (05:54→21:29)
[2017-04-13] MEDS: LANSOPRAZOLE 15 MG TAB.RAP.DR PO SCH ×2 (05:54→16:57)
[2017-04-13] MEDS: INSULIN LISPRO 100 UNIT/ML 3 ML VIAL SUBCUT SCH ×3 (08:16→17:00)
[2017-04-13] MEDS: OXYCODONE-ACETAMINOPHEN 5-325 MG TABLET PO PRN ×2 (08:39→17:04)
[2017-04-13] MEDS: ENOXAPARIN SODIUM INJ 40 MG/0.4 ML DISP.SYRIN SUBCUT SCH (09:59)
[2017-04-13] MEDS: SERTRALINE HCL 50 MG TABLET PO SCH (09:59)
[2017-04-13] MEDS: INSULIN GLARGINE,HUM.REC.ANLOG 1,000 UNIT/10 ML UNIT SUBCUT SCH ×2 (09:59→21:29)
[2017-04-13] MEDS: DOCUSATE SODIUM 100 MG CAPSULE PO SCH (09:59)
--- NOTE | 2017-04-13 13:52 | Physician Advisory Note ---
Physician Advisor ProgressNote .: Pursuant to the plan for [facility], I have reviewed the medical record for this patient. Physician Advisor Statement: Please consider documentin. "Possible sepsis, POA, due to ___, evidenced by tachycardia, leukocytosis, developing hypotension w/MAP<70, P/F ratios <300, lactate >2.0 initially - ruled in/out" - Pt meets Sepsis-2 & Sepsis-3 criteria, was given prompt IVF/IV abx/cx.s/ lactate levels orders. 2. "obesity w/BMI 41.1" Status: 51yo Medicaid pt w/IDDM type 2, HTN, HLD, psoriasis depression, prior fx.s, chronic back pain presented F/C/N/V/aching/poor po intake & erythema of Lt 4th toe soon after starting a new injection for DM. She had previously had problems with a prior DM injection tx. She had HR 109, WBC 16.7, lactate 2.1, ESR 32. With initial dx.s of weakness that could be from Rx side effect (vs sepsis), she was appropriate to come in as Obs while awaiting response to tx, though if attending strongly suspected sepsis clinically at that time (it's hard to tell from H&P how strongly this was suspected), he could have made a case for Inpatient initially. However, since arrival, she has not improved quickly. She is not clearly safe for d/c. Initial BP 156/86 but dropped to MAP as low as 68 on 04/12 PM. She has had repeated tqtit-[id number]-mqixxtuk O2 sats, an overall worsening trend, since coming in. She continues to have leukocytosis, barely budged by 24hrs of abx. Attending will likely want to be cautious, especially given the underlying immunocompromise of DM, and await culture results & further improvement before considering her safe for d/c. Appropriate for Inpt status. CK
--- NOTE | 2017-04-13 20:14 | RADIOLOGY REPORT (SQ) ---
EXAM DESCRIPTION: CT CHEST WITHOUT COMPLETED DATE/TIME: 04/13/2017 7:42 pm REASON FOR STUDY: pneumonia COMPARISON: Chest x-ray dated 04/12/2017 and CTA of the chest dated July 2013 TECHNIQUE: CT scan performed of the chest without intravenous contrast. Images reviewed with lung, soft tissue and bone windows. Reconstructed coronal and sagittal MPR images reviewed. All images st ored on PACS. All CT scanners at this facility use dose modulation, iterative reconstruction, and/or weight based d osing when appropriate to reduce radiation dose to as low as reasonably achievable (ALARA). [facility]: Dose Right [facility]: CareDose [facility]: Dose Right [facility]: Teradose 4D [facility]: [employer] RADIATION DOSE: Up-to-date CT equipment and radiation dose reduction techniques were employed. CTDIv ol: 19.4 mGy. DLP: 785 mGy-cm. mGy. LIMITATIONS: No technical limitations. FINDINGS: LUNGS AND PLEURA: There are scattered ground-glass opacities in the right lower lobe and s ome minimal ground-glass opacities in the left lung base. These could represent atelectatic changes or developing pneumonic infiltrates. No pleural effusions are identified. HILAR AND MEDIASTINAL STRUCTURES: No identified masses or abnormal nodes. No obvious aneurysm. HEART AND VASCULAR STRUCTURES: No aneurysm. No pericardial effusion. Coronary artery calcifications are identified. UPPER ABDOMEN: There is fatty infiltration of the liver THYROID AND OTHER SOFT TISSUES: No masses. No adenopathy. BONES: No significant finding. HARDWARE: None in the chest. OTHER: No other significant findings. IMPRESSION: There is scattered ground-glass opacities in the right lower lobe and some minimal groun d-glass opacities in the left lung base as noted above. These could represent atelectatic changes or developing pneumonic infiltrates. No pleural effusions are identified. Other findings as noted abo ve TECHNICAL DOCUMENTATION: JOB ID: [id number] Quality ID # [id number]: Final reports with documentation of one or more dose reduction techniques (e.g., Au tomated exposure control, adjustment of the mA and/or kV according to patient size, use of iterative reconstruction technique) 2010 [employer]- All Rights Reserved
--- NOTE | 2017-04-13 20:55 | PDOC PROGRESS REPORT ---
Subjective Progress Note for:: 04/13/17 Subjective:: Patient was admitted over the weekend when she presented with vomiting abdominal pain and leukocytosis. A CAT scan of the abdomen and pelvis was obtained, did not show any acute pathology. Patient suspected that the symptom was due to the fact that she was started on bydureon. I saw her on the floor today she is diaphoretic she is coughing she said she felt like she has pneumonia which is similar to the way she felt previously when she had pneumonia , on auscultation of the chest there was crackles at the bases I ordered a CT chest to be done he showed infiltrate in the right lower lobe. She is a diabetic poorly controlled with leukocytosis and CT chest showing pneumonia process Physical Exam Vital Signs: Temp Pulse Resp BP Pulse Ox 97.8 F 87 18 101/57 L 97 04/13/17 16:09 04/13/17 19:00 04/13/17 16:09 04/13/17 16:09 04/13/17 16:09 Intake & Output 04/12/17 04/13/17 04/14/17 06:59 06:59 06:59 Intake Total 2070 1400 Output Total 1300 Balance 2070 100 General appearance: PRESENT: mild distress Eye exam: PRESENT: PERRLA Respiratory exam: PRESENT: rales Cardiovascular exam: PRESENT: +S1, +S2 GI/Abdominal exam: PRESENT: soft Neurological exam: PRESENT: alert, CN II-XII grossly intact Results Laboratory Results: 04/13/17 02:21 04/13/17 02:21 04/13/17 04/13/17 02:21 02:21 WBC 15.3 H RBC 4.72 Hgb 14.1 D Hct 41.8 MCV 89 MCH 29.9 MCHC 33.7 RDW 13.5 Plt Count 194 Seg Neutrophils % 70.2 Lymphocytes % 19.8 Monocytes % 7.9 Eosinophils % 2.0 Basophils % 0.1 Absolute Neutrophils 10.7 H Absolute Lymphocytes 3.0 Absolute Monocytes 1.2 Absolute Eosinophils 0.3 Absolute Basophils 0.0 Sodium 139.3 Potassium 3.2 L Chloride 105 Carbon Dioxide 25 Anion Gap 9 BUN 11 Creatinine 0.67 Est GFR ( Amer) > 60 Est GFR (Non-Af Amer) > 60 Glucose 200 H Calcium 8.6 Magnesium 1.7 04/12/17 04/12/17 04/12/17 14:40 14:40 20:25 Creatine Kinase 41 39 CK-MB (CK-2) 0.31 Troponin I < 0.012 04/12/17 04/13/17 04/13/17 20:25 02:21 02:21 Creatine Kinase 33 CK-MB (CK-2) 0.24 0.24 Troponin I < 0.012 < 0.012 Impressions: Abdomen/Pelvis CT 04/12/17 00:00 IMPRESSION: Enlarged fatty liver. Grade 1 spondylolisthesis L5 on S1. Chest X-Ray 04/12/17 09:15 IMPRESSION: NO ACUTE RADIOGRAPHIC FINDING IN THE CHEST. Foot X-Ray 04/12/17 10:11 IMPRESSION: No significant findings. Chest CT 04/13/17 00:00 IMPRESSION: There is scattered ground-glass opacities in the right lower lobe and some minimal ground-glass opacities in the left lung base as noted above. These could represent atelectatic changes or developing pneumonic infiltrates. No pleural effusions are identified. Other findings as noted above Assessment & Plan - Diagnosis (1) Right lower lobe pneumonia Qualifiers: Pneumonia type: due to unspecified organism Qualified Code(s): J18.1 - Lobar pneumonia, unspecified organism Is this a current diagnosis for this admission?: Yes Plan: She will be treated with IV Levaquin, cefepime to cover community-acquired pneumonia (2) Type 2 diabetes mellitus Qualifiers: Diabetes mellitus complication status: with unspecified complications Diabetes mellitus correction insulin use: with correction use Qualified Code(s) : E11.8 - Type 2 diabetes mellitus with unspecified complications; Z79.4 - petroleum terminal plant operator (current) use of insulin Is this a current diagnosis for this admission?: Yes (3) HTN (hypertension) Qualifiers: Hypertension type: essential hypertension Qualified Code(s): I10 - Essential (primary) hypertension Is this a current diagnosis for this admission?: Yes
[2017-04-13] MEDS: CEFEPIME 2 GM/D5W RTU 2 GM/50 ML RTUPB IV SCH (21:29)
[2017-04-13] MEDS ORDERED: LEVOFLOXACIN 750 MG/D5W RTU 750 MG/150 ML RTUPB IV ONE (21:30)
[2017-04-13 21:37] LABS: ALANINE AMINOTRANSFERASE 20 U/L (9-52); ALBUMIN 2.9 g/dL (3.5-5.0); ALKALINE PHOSPHATASE 89 U/L (38-126); ANION GAP 7 (5-19); ASPARTATE AMINO TRANSFERASE 11 U/L (14-36); BILIRUBIN,DIRECT 0.3 mg/dL (0.0-0.4); BILIRUBIN,TOTAL 0.4 mg/dL (0.2-1.3); BLOOD UREA NITROGEN 13 mg/dL (7-20); CALCIUM 8.3 mg/dL (8.4-10.2); CARBON DIOXIDE 26 mmol/L (22-30); CHLORIDE 106 mmol/L (98-107); CREATININE RESULT 0.59 mg/dL (0.52-1.25); GLUCOSE 197 mg/dL (75-110); POTASSIUM 3.3 mmol/L (3.6-5.0); SODIUM 139.2 mmol/L (137-145); TOTAL PROTEIN 5.8 g/dL (6.3-8.2)
[2017-04-14] MEDS: PIPERACILLIN SODIUM/TAZOBACTAM 3.375 GM in NORMAL SALINE 100 ML IV SCH ×4 (00:01→17:25)
[2017-04-14 05:50] LABS: ABSOLUTE BASOPHILS # (AUTO) 0.1 10^3/uL (0.0-0.2); ABSOLUTE EOSINOPHILS # (AUTO) 0.4 10^3/uL (0.0-0.6); ABSOLUTE LYMPHOCYTES (AUTO) 2.8 10^3/uL (0.5-4.7); ABSOLUTE NEUT (AUTO) 6.5 10^3/uL (1.7-8.2); BASOPHILS % (AUTO) 0.5 % (0-2); EOSINOPHILS % (AUTO) 3.6 % (0-6); HEMATOCRIT 38.7 % (36.0-47.0); HEMOGLOBIN 13.4 g/dL (12.0-15.5); HGB HCT DIFFERENCE 1.5; LYMPHOCYTES % (AUTO) 26.3 % (13-45); MEAN CORPUSCULAR HEMOGLOBIN 30.9 pg (27.0-33.4); MEAN CORPUSCULAR HGB CONC 34.7 g/dL (32.0-36.0); MEAN CORPUSCULAR VOLUME 89 fl (80-97); MONOCYTES % (AUTO) 8.9 % (3-13); RED BLOOD COUNT 4.34 10^6/uL (3.72-5.28); RED CELL DISTRIBUTION WIDTH 13.5 % (11.5-14.0); SEGMENTED NEUTROPHILS % (AUTO) 60.7 % (42-78); WHITE BLOOD COUNT 10.7 10^3/uL (4.0-10.5)
[2017-04-14] MEDS: LANSOPRAZOLE 15 MG TAB.RAP.DR PO SCH ×2 (06:03→17:25)
[2017-04-14] MEDS: PREGABALIN 75 MG CAPSULE PO SCH ×3 (06:03→21:48)
[2017-04-14 06:04] LABS: ANION GAP 9 (5-19); BLOOD UREA NITROGEN 12 mg/dL (7-20); CALCIUM 8.4 mg/dL (8.4-10.2); CARBON DIOXIDE 24 mmol/L (22-30); CHLORIDE 107 mmol/L (98-107); CREATININE RESULT 0.56 mg/dL (0.52-1.25); GLUCOSE 258 mg/dL (75-110); POTASSIUM 3.7 mmol/L (3.6-5.0); SODIUM 140.2 mmol/L (137-145)
[2017-04-14] MEDS: OXYCODONE-ACETAMINOPHEN 5-325 MG TABLET PO PRN ×2 (06:05→13:46)
[2017-04-14] MEDS: INSULIN LISPRO 100 UNIT/ML 3 ML VIAL SUBCUT SCH ×3 (08:13→17:26)
[2017-04-14] MEDS: SERTRALINE HCL 50 MG TABLET PO SCH (09:58)
[2017-04-14] MEDS: DOCUSATE SODIUM 100 MG CAPSULE PO SCH (09:58)
[2017-04-14] MEDS: INSULIN GLARGINE,HUM.REC.ANLOG 1,000 UNIT/10 ML UNIT SUBCUT SCH ×2 (09:58→21:48)
[2017-04-14] MEDS: CEFEPIME 2 GM/D5W RTU 2 GM/50 ML RTUPB IV SCH ×2 (09:58→21:48)
[2017-04-14] MEDS: ENOXAPARIN SODIUM INJ 40 MG/0.4 ML DISP.SYRIN SUBCUT SCH (10:00)
--- NOTE | 2017-04-14 21:28 | PDOC PROGRESS REPORT ---
Subjective Progress Note for:: 04/14/17 Subjective:: Patient was admitted over the weekend when she presented with vomiting abdominal pain and leukocytosis. A CAT scan of the abdomen and pelvis was obtained, did not show any acute pathology. Patient suspected that the symptom was due to the fact that she was started on bydureon. I saw her on the floor today she is diaphoretic she is coughing she said she felt like she has pneumonia which is similar to the way she felt previously when she had pneumonia , on auscultation of the chest there was crackles at the bases I ordered a CT chest to be done he showed infiltrate in the right lower lobe. She is a diabetic poorly controlled with leukocytosis and CT chest showing pneumonia process Physical Exam Vital Signs: Temp Pulse Resp BP Pulse Ox 97.5 F 74 16 135/68 H 92 04/14/17 20:00 04/14/17 20:00 04/14/17 20:00 04/14/17 20:00 04/14/17 20:00 Intake & Output 04/13/17 04/14/17 04/15/17 06:59 06:59 06:59 Intake Total 2070 3219 1682 Output Total 3100 Balance 2070 119 1682 Weight 122.3 kg General appearance: PRESENT: no acute distress Eye exam: PRESENT: PERRLA Respiratory exam: PRESENT: rhonchi Cardiovascular exam: PRESENT: +S1, +S2 GI/Abdominal exam: PRESENT: soft Neurological exam: PRESENT: alert, CN II-XII grossly intact Results Laboratory Results: 04/14/17 04:37 04/14/17 04:37 04/13/17 04/14/17 04/14/17 21:07 04:37 04:37 WBC 10.7 H RBC 4.34 Hgb 13.4 Hct 38.7 MCV 89 MCH 30.9 MCHC 34.7 RDW 13.5 Plt Count 197 Seg Neutrophils % 60.7 Lymphocytes % 26.3 Monocytes % 8.9 Eosinophils % 3.6 Basophils % 0.5 Absolute Neutrophils 6.5 Absolute Lymphocytes 2.8 Absolute Monocytes 1.0 Absolute Eosinophils 0.4 Absolute Basophils 0.1 Sodium 139.2 140.2 Potassium 3.3 L 3.7 Chloride 106 107 Carbon Dioxide 26 24 Anion Gap 7 9 BUN 13 12 Creatinine 0.59 0.56 Est GFR ( Amer) > 60 > 60 Est GFR (Non-Af Amer) > 60 > 60 Glucose 197 H 258 H Calcium 8.3 L 8.4 Total Bilirubin 0.4 AST 11 L ALT 20 Alkaline Phosphatase 89 Total Protein 5.8 L Albumin 2.9 L 04/12/17 04/12/17 04/12/17 14:40 14:40 20:25 Creatine Kinase 41 39 CK-MB (CK-2) 0.31 Troponin I < 0.012 04/12/17 04/13/17 04/13/17 20:25 02:21 02:21 Creatine Kinase 33 CK-MB (CK-2) 0.24 0.24 Troponin I < 0.012 < 0.012 Impressions: Abdomen/Pelvis CT 04/12/17 00:00 IMPRESSION: Enlarged fatty liver. Grade 1 spondylolisthesis L5 on S1. Chest X-Ray 04/12/17 09:15 IMPRESSION: NO ACUTE RADIOGRAPHIC FINDING IN THE CHEST. Foot X-Ray 04/12/17 10:11 IMPRESSION: No significant findings. Chest CT 04/13/17 00:00 IMPRESSION: There is scattered ground-glass opacities in the right lower lobe and some minimal ground-glass opacities in the left lung base as noted above. These could represent atelectatic changes or developing pneumonic infiltrates. No pleural effusions are identified. 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
[2017-04-14] MEDS ORDERED: LEVOFLOXACIN 750 MG/D5W RTU 750 MG/150 ML RTUPB IV SCH (22:00)
[2017-04-15] MEDS: OXYCODONE-ACETAMINOPHEN 5-325 MG TABLET PO PRN ×2 (02:42→12:25)
[2017-04-15 05:06] LABS: ABSOLUTE BASOPHILS # (AUTO) 0.1 10^3/uL (0.0-0.2); ABSOLUTE EOSINOPHILS # (AUTO) 0.4 10^3/uL (0.0-0.6); ABSOLUTE LYMPHOCYTES (AUTO) 2.9 10^3/uL (0.5-4.7); ABSOLUTE MONOCYTES (AUTO) 0.9 10^3/uL (0.1-1.4); ABSOLUTE NEUT (AUTO) 5.9 10^3/uL (1.7-8.2); BASOPHILS % (AUTO) 0.8 % (0-2); HEMATOCRIT 38.9 % (36.0-47.0); HEMOGLOBIN 13.2 g/dL (12.0-15.5); HGB HCT DIFFERENCE 0.7; LYMPHOCYTES % (AUTO) 28.2 % (13-45); MEAN CORPUSCULAR HEMOGLOBIN 30.5 pg (27.0-33.4); MEAN CORPUSCULAR VOLUME 90 fl (80-97); MONOCYTES % (AUTO) 8.6 % (3-13); RED BLOOD COUNT 4.34 10^6/uL (3.72-5.28); RED CELL DISTRIBUTION WIDTH 13.4 % (11.5-14.0); SEGMENTED NEUTROPHILS % (AUTO) 58.4 % (42-78); WHITE BLOOD COUNT 10.1 10^3/uL (4.0-10.5)
[2017-04-15 05:24] LABS: ANION GAP 7 (5-19); BLOOD UREA NITROGEN 15 mg/dL (7-20); CALCIUM 8.5 mg/dL (8.4-10.2); CARBON DIOXIDE 25 mmol/L (22-30); CHLORIDE 110 mmol/L (98-107); CREATININE RESULT 0.61 mg/dL (0.52-1.25); GLUCOSE 165 mg/dL (75-110); POTASSIUM 3.8 mmol/L (3.6-5.0); SODIUM 142.2 mmol/L (137-145)
[2017-04-15] MEDS: LANSOPRAZOLE 15 MG TAB.RAP.DR PO SCH (05:37)
[2017-04-15] MEDS: PREGABALIN 75 MG CAPSULE PO SCH ×2 (05:37→13:09)
[2017-04-15] MEDS: INSULIN LISPRO 100 UNIT/ML 3 ML VIAL SUBCUT SCH ×2 (08:37→12:41)
[2017-04-15] MEDS: CEFEPIME 2 GM/D5W RTU 2 GM/50 ML RTUPB IV SCH (09:43)
[2017-04-15] MEDS: ENOXAPARIN SODIUM INJ 40 MG/0.4 ML DISP.SYRIN SUBCUT SCH (09:43)
[2017-04-15] MEDS: DOCUSATE SODIUM 100 MG CAPSULE PO SCH (09:43)
[2017-04-15] MEDS: SERTRALINE HCL 50 MG TABLET PO SCH (09:43)
[2017-04-15] MEDS: INSULIN GLARGINE,HUM.REC.ANLOG 1,000 UNIT/10 ML UNIT SUBCUT SCH (09:43)
--- NOTE | 2017-04-15 15:50 | PDOC DISCHARGE SUMMARY ---
General - Admit/Disc Date/PCP Admission Date/Primary Care Provider: 04/12/17 14:20 GRANT PIERRE MD Discharge Date: 04/15/17 - Discharge Diagnosis (1) Right lower lobe pneumonia Is this a current diagnosis for this admission?: Yes (2) Type 2 diabetes mellitus Is this a current diagnosis for this admission?: Yes (3) HTN (hypertension) Is this a current diagnosis for this admission?: Yes - Additional Information Resuscitation Status: Full Code Home Medications: Canagliflozin/Metformin HCl [Invokamet 150-1,000 mg Tablet] 1 tab PO BID Insulin Aspart [Novolog Flexpen] 23 units SUBCUT MEALS 04/12/17 Insulin Glargine,Hum.rec.anlog [Lantus Solostar] 90 units SUBCUT Q12 04/12/17 Oxycodone HCl/Acetaminophen [Percocet 5-325 mg Tablet] 1 tab PO Q8HP PRN Pregabalin [Lyrica 75 mg Capsule] 75 mg PO Q8 04/12/17 Sertraline HCl [Zoloft 50 mg Tablet] 50 mg PO DAILY 04/12/17 Levofloxacin [Levaquin 750 mg Tablet] 750 mg PO DAILY #10 tab 04/15/17 History of Present Illness History of Present Illness: NATALIIA SALINAS is a 51 year old female she presented to the emergency room for evaluation of malaise nausea abdominal pain. In the emergency room she was evaluated she was found to have leukocytosis, a CAT scan of the abdomen and pelvis was done, there was no acute pathology found on the CAT scan. Hospital Course Hospital Course: She was empirically started on Zosyn IV antibiotic, on Thursday when I saw patient she endorses chest symptoms of cough pleurisy , a CAT scan of the chest was done showed right lower lobe pneumonia, she was then treated with intravenous cefepime and Levaquin and she was taken off IV Zosyn. She has been on the antibiotic for 2 days she felt much better and she wants to go home today. When she was admitted she had leukocytosis with white cell count 16,000 , the white blood cell count today is 10,000 Physical Exam Vital Signs: Temp Pulse Resp BP Pulse Ox 98.0 F 74 18 133/68 H 93 04/15/17 11:12 04/15/17 11:12 04/15/17 11:12 04/15/17 11:12 04/15/17 11:12 Intake & Output 04/14/17 04/15/17 04/16/17 06:59 06:59 06:59 Intake Total 3219 3182 360 Output Total 3100 600 Balance 119 2582 360 Weight 122.3 kg 119.9 kg General appearance: PRESENT: no acute distress, well-developed, well-nourished Head exam: PRESENT: atraumatic, normocephalic Eye exam: PRESENT: conjunctiva pink, EOMI, PERRLA Ear exam: PRESENT: normal external ear exam Mouth exam: PRESENT: moist, tongue midline Neck exam: PRESENT: full ROM Respiratory exam: PRESENT: clear to auscultation lamar Cardiovascular exam: PRESENT: RRR, +S1, +S2 Pulses: PRESENT: normal dorsalis pedis pul, +2 pedal pulses bilateral Vascular exam: PRESENT: normal capillary refill GI/Abdominal exam: PRESENT: normal bowel sounds, soft Rectal exam: PRESENT: deferred Neurological exam: PRESENT: alert, awake, oriented to person, oriented to place , oriented to time, oriented to situation, CN II-XII grossly intact Psychiatric exam: PRESENT: appropriate affect, normal mood Skin exam: PRESENT: dry, intact, warm Results Laboratory Results: 04/15/17 04:03 04/15/17 04:03 04/15/17 04/15/17 04:03 04:03 WBC 10.1 RBC 4.34 Hgb 13.2 Hct 38.9 MCV 90 MCH 30.5 MCHC 34.0 RDW 13.4 Plt Count 220 Seg Neutrophils % 58.4 Lymphocytes % 28.2 Monocytes % 8.6 Eosinophils % 4.0 Basophils % 0.8 Absolute Neutrophils 5.9 Absolute Lymphocytes 2.9 Absolute Monocytes 0.9 Absolute Eosinophils 0.4 Absolute Basophils 0.1 Sodium 142.2 Potassium 3.8 Chloride 110 H Carbon Dioxide 25 Anion Gap 7 BUN 15 Creatinine 0.61 Est GFR ( Amer) > 60 Est GFR (Non-Af Amer) > 60 Glucose 165 H Calcium 8.5 04/12/17 04/12/17 04/12/17 14:40 14:40 20:25 Creatine Kinase 41 39 CK-MB (CK-2) 0.31 Troponin I < 0.012 04/12/17 04/13/17 04/13/17 20:25 02:21 02:21 Creatine Kinase 33 CK-MB (CK-2) 0.24 0.24 Troponin I < 0.012 < 0.012 Impressions: Abdomen/Pelvis CT 04/12/17 00:00 IMPRESSION: Enlarged fatty liver. Grade 1 spondylolisthesis L5 on S1. Chest X-Ray 04/12/17 09:15 IMPRESSION: NO ACUTE RADIOGRAPHIC FINDING IN THE CHEST. Foot X-Ray 04/12/17 10:11 IMPRESSION: No significant findings. Chest CT 04/13/17 00:00 IMPRESSION: There is scattered ground-glass opacities in the right lower lobe and some minimal ground-glass opacities in the left lung base as noted above. These could represent atelectatic changes or developing pneumonic infiltrates. No pleural effusions are identified. Other findings as noted above
[2017-04-15 16:08] VITALS: BP 120/68
== END 2017-04-15 16:32 | disposition home or self-care (01) | DRG 195 ==
LOC: ER 08:47 → EH 13:20 → UNDOADMIN 13:20 → EH 14:18 → 4N 14:18 → EH 14:20 → 4N 14:20
PROVIDERS: ADMIT Internal Medicine; ATTEND Internal Medicine
DX: J18.1 Lobar pneumonia, unspecified organism (principal); K21.9 Gastro-esophageal reflux disease without esophagitis; M19.90 Unspecified osteoarthritis, unspecified site; F32.9 Major depressive disorder, single episode, unspecified; I10 Essential (primary) hypertension; E11.628 Type 2 diabetes mellitus with other skin complications; L03.032 Cellulitis of left toe; E78.5 Hyperlipidemia, unspecified; Z79.4 Long term (current) use of insulin; M54.9 Dorsalgia, unspecified; G89.29 Other chronic pain; L40.9 Psoriasis, unspecified; D72.89 Other specified disorders of white blood cells; Z82.49 Family history of ischemic heart disease and other diseases of the circulatory system; Z88.8 Allergy status to other drugs, medicaments and biological substances
CPT/HCPCS: 36415; 71010; 71250; 74176; 80048; 80053; 81001; 82550; 82553; 82962; 83036; 83605; 83735; 84484; 85025; 85652; 87040; 87070; 87086; 87804; 87880; 93005; 93010; 96365; 96375; 99291; J0692; J1200; J1650; J1815; J1956; J2543; J2765; J7030

== ENCOUNTER 2017-11-03 22:39 | Emergency (ER) | payer MEDICAID ==
[2017-11-03 23:01] LABS: ABSOLUTE EOSINOPHILS # (AUTO) 0.3 10^3/uL (0.0-0.6); ABSOLUTE LYMPHOCYTES (AUTO) 3.1 10^3/uL (0.5-4.7); ABSOLUTE MONOCYTES (AUTO) 0.8 10^3/uL (0.1-1.4); BASOPHILS % (AUTO) 0.4 % (0-2); EOSINOPHILS % (AUTO) 2.7 % (0-6); HEMATOCRIT 47.6 % (36.0-47.0); HEMOGLOBIN 15.5 g/dL (12.0-15.5); LYMPHOCYTES % (AUTO) 30.1 % (13-45); MEAN CORPUSCULAR HEMOGLOBIN 30.4 pg (27.0-33.4); MEAN CORPUSCULAR HGB CONC 32.5 g/dL (32.0-36.0); MEAN CORPUSCULAR VOLUME 94 fl (80-97); MONOCYTES % (AUTO) 8.3 % (3-13); PLATELET COUNT 270 10^3/uL (150-450); RED BLOOD COUNT 5.09 10^6/uL (3.72-5.28); RED CELL DISTRIBUTION WIDTH 13.7 % (11.5-14.0); SEGMENTED NEUTROPHILS % (AUTO) 58.5 % (42-78); TOTAL CELLS COUNTED % (AUTO) 100 %; WHITE BLOOD COUNT 10.2 10^3/uL (4.0-10.5)
[2017-11-03] MEDS ORDERED: INSULIN GLARGINE,HUM.REC.ANLOG 1,000 UNIT/10 ML UNIT SUBCUT ONE (23:07)
[2017-11-03] MEDS ORDERED: HYDROMORPHONE HCL INJ/PF 2 MG/ML AMPULE IV ONE (23:08)
[2017-11-03] MEDS ORDERED: INSULIN LISPRO 100 UNIT/ML 3 ML VIAL SUBCUT ONE (23:08)
[2017-11-03 23:13] LABS: ALANINE AMINOTRANSFERASE 23 U/L (9-52); ALKALINE PHOSPHATASE 169 U/L (38-126); ANION GAP 15 (5-19); ASPARTATE AMINO TRANSFERASE 32 U/L (14-36); BILIRUBIN,DIRECT 0.4 mg/dL (0.0-0.4); BILIRUBIN,TOTAL 0.4 mg/dL (0.2-1.3); BLOOD UREA NITROGEN 11 mg/dL (7-20); CALCIUM 9.1 mg/dL (8.4-10.2); CARBON DIOXIDE 25 mmol/L (22-30); CHLORIDE 97 mmol/L (98-107); POTASSIUM 3.7 mmol/L (3.6-5.0); SODIUM 136.7 mmol/L (137-145); TOTAL PROTEIN 7.1 g/dL (6.3-8.2)
[2017-11-03 23:40] LABS: GLUCOSE 615 mg/dL (75-110)
--- NOTE | 2017-11-04 00:06 | ER Document Report ---
ED General - General Chief Complaint: Back Pain Stated Complaint: BACK PAIN Time Seen by Provider: 11/03/17 22:57 Notes: Patient is a 52-year-old female presents with complaint of low back pain. She has a history of chronic back pain and actually recently had an MRI. This was ordered by her pain management doctor. She said the MRI showed spinal listhesis as well as pinched nerves. Patient says that she usually has some numbness into her legs. She says her last 3 days she has had worsening back pain that radiates into her legs. She denies any numbness in the perineal area. She denies any loss of bowel control. She says that she does have to urinate frequently but she does not feels that she is retaining any urine. No dysuria. No fevers or vomiting. Patient is able to walk and ambulate. Patient did take her oxycodone at home tonight but said it did not take away her pain and therefore she has come to the ER. Patient's blood sugars also found to be very high. Patient admits that she did not take her Lantus or her Janumet tonight. She also is on NovoLog and took the morning dose but did not take the afternoon dose. TRAVEL OUTSIDE OF THE [place] IN LAST 30 DAYS: No - Related Data Allergies/Adverse Reactions: exenatide [From Byetta] Allergy (Intermediate, Verified 04/12/17 08:51) Hives Past Medical History - Social History Smoking Status: Unknown if Ever Smoked Chew tobacco use (# tins/day): No Frequency of alcohol use: None Drug Abuse: None Family History: CAD - correction family history pertinent Patient has suicidal ideation: No Patient has homicidal ideation: No - Past Medical History Cardiac Medical History: Reports: Hx Hypercholesterolemia, Hx Hypertension Pulmonary Medical History: Reports: Hx Pneumonia Endocrine Medical History: Reports: Hx Diabetes Mellitus Type 2 Renal/ Medical History: Denies: Hx Peritoneal Dialysis, Hx Renal Insufficiency GI Medical History: Reports: Hx Gastroesophageal Reflux Disease Musculoskeltal Medical History: Reports Hx Arthritis, Reports Hx Musculoskeletal Deformity, Reports Hx Musculoskeletal Trauma Skin Medical History: Reports Hx Psoriasis Psychiatric Medical History: Reports: Hx Depression Traumatic Medical History: Reports: Hx Fractures Past Surgical History: Reports: Hx Hysterectomy - Immunizations Immunizations up to date: Yes Hx Diphtheria, Pertussis, Tetanus Vaccination: Yes Hx Pneumococcal Vaccination: 07/20/10 Review of Systems - Review of Systems Notes: My Normal Review Basic REVIEW OF SYSTEMS: CONSTITUTIONAL : Denies fever, chills, or sweats. Denies recent illness. EENT: Denies eye, ear, throat, or mouth pain or symptoms. Denies nasal or sinus congestion. RESPIRATORY: Denies cough, cold, or chest congestion. Denies shortness of breath, difficulty breathing, or wheezing. GASTROINTESTINAL: Denies abdominal pain. Denies nausea, vomiting, or diarrhea. Denies constipation. Last BM: GENITOURINARY: Denies difficulty urinating, painful urination, burning, frequency, or blood in urine. MUSCULOSKELETAL: Back pain radiating towards legs. SKIN: Denies rash or skin lesions. NEUROLOGICAL: Denies altered mental status or loss of consciousness. Denies headache. Denies weakness or paralysis or loss of use of either side. Denies problems with gait or speech. Chronic numbness into the feet and legs. Weakness into the legs. ALL OTHER SYSTEMS REVIEWED AND NEGATIVE. Physical Exam - Vital signs Vitals: Temp 98.7 F 11/03/17 22:53 - Notes Notes: General Appearance: Well nourished, alert, cooperative, no acute distress, moderate obvious discomfort. Vitals: reviewed, See vital signs table. Head: no swelling or tenderness to the head Eyes: PERRL, EOMI, Conjuctiva clear Lungs: No wheezing, No rales, No rhonci, No accessory muscle use, good air exchange bilaterally. Heart: Normal rate, Regular rythm, No murmur, no rub Abdomen: Normal BS, soft, No rigidity, No abdominal tenderness, No guarding, no rebound, Rectal: Normal rectal tone on exam. Back: Pain to palpation mainly at the lumbosacral junction. Extremities: strength 5/5 in all extremities, good pulses in all extremities, no swelling or tenderness in the extremities, no edema. Skin: warm, dry, appropriate color, no rash Neuro: speech clear, oriented x 3, normal affect, responds appropriately to questions. Patient has good strength with plantar dorsiflexion against resistance. She is able stand and walk around without any difficulty. Patellar reflexes are equal bilaterally. Course - Re-evaluation Re-evalutation: 11/04/17 06:29 Patient's hyperglycemia started improve after receiving her insulin. Informed her that she needs to take all her medications and not miss her dosages. Her back pain is much improved after giving the pain medication. Patient has good strength in both lower extremities. She has good rectal tone. She has no loss of bowel control no urinary retention. I do not suspect cauda equina or central cord impingement syndromes. I feel she is safe to be discharged home. I encouraged her follow-up closely with her pain management doctor for close reevaluation to return to the ER she has also bowel control, urinary retention, will increasing leg weakness or numbness, or she feels unwell. Patient agrees with plan will be discharged home. Dictation of this chart was performed using voice recognition software; therefore, there may be some unintended grammatical errors. - Vital Signs Vital signs: Temp Pulse Resp BP Pulse Ox 98.7 F 17 111/98 H 97 11/03/17 22:53 11/04/17 01:01 11/04/17 01:01 11/04/17 01:01 - Laboratory Result Diagrams: 11/03/17 22:22 11/03/17 22:22 Laboratory results interpreted by me: 11/03/17 11/03/17 11/03/17 22:22 22:22 23:16 Hct 47.6 H Sodium 136.7 L Chloride 97 L Glucose 615 H* POC Glucose Alkaline Phosphatase 169 H Urine Glucose (UA) >=500 H Urine Blood SMALL H 11/04/17 01:04 Hct Sodium Chloride Glucose POC Glucose 480 H* Alkaline Phosphatase Urine Glucose (UA) Urine Blood Discharge - Discharge Clinical Impression: Hyperglycemia Back pain Qualifiers: Back pain location: low back pain Chronicity: chronic Back pain laterality: midline Sciatica presence: with sciatica Sciatica laterality: bilateral sciatica Qualified Code(s): M54.41 - Lumbago with sciatica, right side Condition: Good Disposition: HOME, SELF-CARE Additional Instructions: LOW BACK PAIN: Three out of every four people will have an episode of disabling back pain during their lifetime. Most commonly the pain is due to straining of the muscles and ligaments in the low back. Usual treatment includes: (1) Rest on a firm surface. Avoid lying on your stomach. (2) Ice pack the painful area. After a few days, gentle heat may be used intermittently to relax the area, or ice packs can be continued. (3) Medication may be needed -- muscle relaxers and antiinflammatory medicines are commonly used. (4) As the back improves, exercises are prescribed to strengthen the back and abdominal muscles. Your doctor will advise you on the proper care for your back at each stage in your recovery. You may be better in a few days -- or healing may take several weeks. If new symptoms of a "herniated disc" (radiation of pain, numbness, or tingling down the back of the leg or weakness in the leg) occur, you should be re-examined. Further testing may be necessary. PAIN MEDICATION INJECTION: You have received an injection of a pain medication. You should experience significant pain relief within 45 minutes. If this injection was a narcotic -- it will impair your judgement, slow your reaction time and make you sleepy (as well as relieve your pain). Narcotics also can cause nausea. You should not drive, work with machinery, or perform any task requiring mental alertness until all effects of the medication are gone -- six to eight hours. Do not take any alcohol, or sedatives, and do not take any other medication without checking with your physician. ICE PACKS: Apply ice packs frequently against the painful area. Many different schedules are recommended, such as "20 minutes on, 20 minutes off" or "one hour ice, two hours rest." If you need to work, you may need to go longer between ice treatments. You should plan to have the area ice packed AT LEAST one fourth of the time. The ice should be applied over the wrap, tape, or splint, or over a layer of cloth -- not directly against the skin. Some ice bags have a built-in cloth and can be put directly on the skin. WARM PACKS: After approximately two days, apply gentle heat (such as a heating pad or hot water bottle) for about 20 to 30 minutes about every two hours -- at least four times daily. Warmth and elevation will help you make a more rapid recovery , and will ease the pain considerably. Do not use HOT heat, and never apply heat for longer than 30 minutes. The continuous heat can invisibly damage skin and muscles -- even when no burn is seen on the surface. Damaged muscles can make you MORE sore. FOLLOW-UP CARE: If you have been referred to a physician for follow-up care, call the physician s office for an appointment as you were instructed or within the next two days. If you experience worsening or a significant change in your symptoms, notify the physician immediately or return to the Emergency Department at any time for re-evaluation. Please take your diabetes medications as prescribed. please follow up closely with your pain management physician. please return to the ER immediately if you have increasing weakness or numbness in your feet, loss of control of your bowel function, fevers, inability to walk, in ability to urinate, or if you feel unwell. Please keep a close eye on your blood sugar and return to the ER if it starts to increase again. Referrals: GRANT PIERRE MD [Primary Care Provider] - Follow up tomorrow
[2017-11-04 00:10] LABS: APPEARANCE,URINE CLEAR; BILIRUBIN,URINE NEGATIVE (NEGATIVE); COLOR,URINE STRAW; GLUCOSE, URINE >=500 mg/dL (NEGATIVE); KETONES,URINE NEGATIVE (NEGATIVE); LEUKOCYTE ESTERASE,URINE NEGATIVE (NEGATIVE); NITRITE,URINE NEGATIVE (NEGATIVE); PROTEIN,URINE NEGATIVE (NEGATIVE); URINE SPECIFIC GRAVITY 1.026; UROBILINOGEN,URINE NEGATIVE mg/dL (<2.0)
[2017-11-04 01:24] VITALS: BP 111/98
== END 2017-11-04 01:25 | disposition home or self-care (01) ==
LOC: ER 22:39
DX: M54.41 Lumbago with sciatica, right side (principal); E11.65 Type 2 diabetes mellitus with hyperglycemia; M54.9 Dorsalgia, unspecified; G89.29 Other chronic pain; R20.0 Anesthesia of skin; Z79.899 Other long term (current) drug therapy; I10 Essential (primary) hypertension; Z79.4 Long term (current) use of insulin
CPT/HCPCS: 99283; 96374; 36415; 82962; 85025; 80053; 81001; J1815 ×2; J1170

== ENCOUNTER 2018-03-02 12:41 | Emergency (ER) | payer MEDICAID ==
[2018-03-02 12:59] VITALS: BP 152/73
--- NOTE | 2018-03-03 07:18 | EKG REPORT ---
SEVERITY:- BORDERLINE ECG - SINUS TACHYCARDIA PROBABLE LEFT ATRIAL ABNORMALITY : Confirmed by: Tayo De La O MD 03-Mar-2018 07:18:28
== END 2018-03-02 14:43 | disposition left against medical advice (07) ==
LOC: ER 12:41
DX: Z53.21 Procedure and treatment not carried out due to patient leaving prior to being seen by health care provider (principal)
CPT/HCPCS: 93005; 93010

== ENCOUNTER 2018-03-10 08:11 | Emergency (ER) | payer MEDICAID ==
--- NOTE | 2018-03-10 09:36 | ER Document Report ---
ED Medical Screen (RME) - General Chief Complaint: Cough Stated Complaint: COUGH Time Seen by Provider: 03/10/18 09:34 Mode of Arrival: Ambulatory Information source: Patient Notes: 52-year-old female with a history of insulin requiring diabetes, asthma presents to the emergency room with 2 weeks history of productive cough (lewis sputum), chest heaviness. Patient has been on Bactrim since the past week and still has symptoms. She recently evaluated by her population health coach (Dr. Davis). TRAVEL OUTSIDE OF THE [place] IN LAST 30 DAYS: No - HPI Onset: Other - Past month Onset/Duration: Gradual Quality of pain: No pain Severity: None Pain Level: Denies Associated Symptoms: Chest pain, Cough (nonproductive), Other - Sore throat/ hoarseness Exacerbated by: Denies Relieved by: Denies Similar symptoms previously: Yes Recently seen / treated by doctor: Yes - Related Data Smoking: Non-smoker Frequency of alcohol use: None Drug Abuse: None Allergies/Adverse Reactions: exenatide [From Byetta] Allergy (Intermediate, Verified 03/10/18 08:13) Hives Past Medical History - General Information source: Patient - Social History Cigarette use (# per day): No Chew tobacco use (# tins/day): No Frequency of alcohol use: None Drug Abuse: None Lives with: Family Family history: None - Past Medical History Cardiac Medical History: Reports: Hx Hypercholesterolemia, Hx Hypertension Pulmonary Medical History: Reports: Hx Pneumonia Endocrine Medical History: Reports: Hx Diabetes Mellitus Type 2 Renal/ Medical History: Denies: Hx Peritoneal Dialysis, Hx Renal Insufficiency GI Medical History: Reports: Hx Gastroesophageal Reflux Disease Musculoskeltal Medical History: Reports Hx Arthritis, Reports Hx Musculoskeletal Deformity, Reports Hx Musculoskeletal Trauma Skin Medical History: Reports Hx Psoriasis Psychiatric Medical History: Reports: Hx Depression Traumatic Medical History: Reports: Hx Fractures Past Surgical History: Reports: Hx Hysterectomy - Immunizations Immunizations up to date: Yes Hx Diphtheria, Pertussis, Tetanus Vaccination: Yes History of Influenza Vaccine for 04/2017 - 09/2017 Season: No Review of Systems - Review of Systems Constitutional: Chills. denies: Fever EENT: Nose congestion, Other - Hoarse voice. denies: Difficulty swallowing Cardiovascular: denies: Palpitations, Heart racing, Orthopnea, Syncope, Lightheaded Respiratory: Cough, Sputum. denies: Hemoptysis, Short of breath Gastrointestinal: denies: Abdomen distended, Abdominal pain, Diarrhea Genitourinary: denies: Dysuria, Discharge Female Genitourinary: No symptoms reported Musculoskeletal: No symptoms reported Skin: No symptoms reported Hematologic/Lymphatic: No symptoms reported Neurological/Psychological: No symptoms reported Physical Exam - Vital signs Vitals: Temp Pulse Resp BP Pulse Ox 98.0 F 92 14 130/70 H 94 03/10/18 08:17 03/10/18 08:17 03/10/18 08:17 03/10/18 08:17 03/10/18 08:17 Notes: Physical exam: GENERAL: 52-year-old female, alert and oriented 3, no acute distress HEAD: Atraumatic, normocephalic. EYES: Pupils equal round and reactive to light, extraocular movements intact, sclera anicteric, conjunctiva are normal. ENT: TMs normal, nares patent, oropharynx clear without exudates. Moist mucous membranes. NECK: Normal range of motion, supple without obvious mass or JVD. LUNGS: Breath sounds clear to auscultation bilaterally and equal. No wheezes rales or rhonchi. HEART: Regular rate and rhythm without murmurs, rubs or gallops. ABDOMEN: Soft, normoactive bowel sounds. No tenderness to palpation. No guarding, no rebound. No masses appreciated. EXTREMITIES: Normal range of motion, no pitting or edema. No clubbing or cyanosis. NEUROLOGICAL: Cranial nerves II through XII grossly intact. Normal speech, moving all extremities. PSYCH: Normal mood, normal affect. SKIN: Warm, Dry, normal turgor, no rashes or lesions noted. Course - Vital Signs Vital signs: Temp Pulse Resp BP Pulse Ox 97.6 F 91 16 124/74 95 03/10/18 12:13 03/10/18 12:13 03/10/18 12:13 03/10/18 12:13 03/10/18 12:13 - Laboratory Result Diagrams: 03/10/18 09:47 03/10/18 09:47 Laboratory results interpreted by me: 03/10/18 03/10/18 09:47 09:47 WBC 13.5 H RBC 5.41 H Hgb 16.4 H Hct 48.5 H Band Neutrophils % 2 L Glucose 191 H Doctor's Discharge - Discharge Clinical Impression: Acute bronchitis Condition: Stable Disposition: HOME, SELF-CARE Additional Instructions: Recommendations: As we discussed, your labs look quite good today. There is no evidence of pneumonia on the chest x-ray. I would complete the antibiotics that were prescribed on the by your doctor. I recommend taking the albuterol inhaler: 2 puffs every 4-6 hours. Return to the emergency room for worsening pain, shortness of breath or discomfort. Referrals: GRANT PIERRE MD [Primary Care Provider] - Follow up in 1 week
[2018-03-10 10:04] LABS: HEMATOCRIT 48.5 % (36.0-47.0); HEMOGLOBIN 16.4 g/dL (12.0-15.5); MEAN CORPUSCULAR HEMOGLOBIN 30.4 pg (27.0-33.4); MEAN CORPUSCULAR HGB CONC 33.9 g/dL (32.0-36.0); MEAN CORPUSCULAR VOLUME 90 fl (80-97); PLATELET COUNT 358 10^3/uL (150-450); RED BLOOD COUNT 5.41 10^6/uL (3.72-5.28); RED CELL DISTRIBUTION WIDTH 13.9 % (11.5-14.0); WHITE BLOOD COUNT 13.5 10^3/uL (4.0-10.5)
--- NOTE | 2018-03-10 10:05 | RADIOLOGY REPORT (SQ) ---
EXAM DESCRIPTION: CHEST 2 VIEWS COMPLETED DATE/TIME: 03/10/2018 9:55 am REASON FOR STUDY: productive cough COMPARISON: 2017 TECHNIQUE: Frontal and lateral radiographic views of the chest acquired. NUMBER OF VIEWS: Two view. LIMITATIONS: None. FINDINGS: LUNGS AND PLEURA: No opacities, masses or pneumothorax. No pleural effusion. MEDIASTINUM AND HILAR STRUCTURES: No masses or contour abnormalities. HEART AND VASCULAR STRUCTURES: Heart normal size. No evidence for failure. BONES: No acute findings. HARDWARE: None in the chest. OTHER: No other significant finding. IMPRESSION: NO SIGNIFICANT RADIOGRAPHIC FINDING IN THE CHEST. TECHNICAL DOCUMENTATION: JOB ID: [id number] [employer] ???- All Rights Reserved Reading location - IP/workstation name: [email or web address]
[2018-03-10 10:24] LABS: ALANINE AMINOTRANSFERASE 28 U/L (9-52); ALBUMIN 3.8 g/dL (3.5-5.0); ALKALINE PHOSPHATASE 120 U/L (38-126); ANION GAP 14 (5-19); ASPARTATE AMINO TRANSFERASE 19 U/L (14-36); BILIRUBIN,DIRECT 0.3 mg/dL (0.0-0.4); BILIRUBIN,TOTAL 0.5 mg/dL (0.2-1.3); BLOOD UREA NITROGEN 17 mg/dL (7-20); CALCIUM 9.8 mg/dL (8.4-10.2); CARBON DIOXIDE 28 mmol/L (22-30); CHLORIDE 100 mmol/L (98-107); CREATINE KINASE 33 U/L (30-135); GLUCOSE 191 mg/dL (75-110); POTASSIUM 4.1 mmol/L (3.6-5.0); SODIUM 141.8 mmol/L (137-145); TOTAL PROTEIN 7.4 g/dL (6.3-8.2)
[2018-03-10 10:32] LABS: ABSOLUTE LYMPHOCYTES# (MANUAL) 4.2 10^3/uL (0.5-4.7); ABSOLUTE MONOCYTES # (MANUAL) 0.7 10^3/uL (0.1-1.4); ABSOLUTE NEUTROPHILS# (MANUAL) 8.1 10^3/uL (1.7-8.2); BAND NEUTROPHILS % (MANUAL) 2 % (3-5); BASOPHILS % (MANUAL) 0 % (0-2); EOSINOPHILS % (MANUAL) 4 % (0-6); LYMPHOCYTES % (MANUAL) 31 % (13-45); MONOCYTES % (MANUAL) 5 % (3-13); PLATELET COMMENT ADEQUATE; POLYCHROMASIA SLIGHT; SEGMENTED NEUTROPHILS % (MAN) 58 % (42-78); TOTAL CELLS COUNTED 100; TOXIC GRANULATION 1+; TOXIC VACUOLATION PRESENT
[2018-03-10 10:37] LABS: CREATINE KINASE MB 0.61 ng/mL (<4.55)
[2018-03-10 10:42] LABS: TROPONIN I < 0.012 ng/mL
[2018-03-10 12:14] VITALS: BP 124/74
[2018-03-10] MEDS ORDERED: ALBUTEROL SULFATE HFA (90 MCG/PUFF) 8 GM MDI (1 MDI/ER DISP) IH ONE (12:25)
--- NOTE | 2018-03-10 22:19 | EKG REPORT ---
SEVERITY:- NORMAL ECG - SINUS RHYTHM : Confirmed by: Emily Davis 10-Mar-2018 22:18:05
== END 2018-03-10 12:33 | disposition home or self-care (01) ==
LOC: ER 08:11
DX: J20.9 Acute bronchitis, unspecified (principal); R07.9 Chest pain, unspecified; R68.83 Chills (without fever); J02.9 Acute pharyngitis, unspecified; E78.00 Pure hypercholesterolemia, unspecified; I10 Essential (primary) hypertension; E11.9 Type 2 diabetes mellitus without complications
CPT/HCPCS: 93005; 99284; 36415; 82553; 82550; 85025; 80053; 84484; 71046; 93010; J3490

== ENCOUNTER → 2018-03-18 | Outpatient (CLI) | payer MEDICAID ==
--- NOTE | 2018-03-18 11:06 | RADIOLOGY REPORT (SQ) ---
EXAM DESCRIPTION: CT SOFT TISSUE NECK WITHOUT COMPLETED DATE/TIME: 03/18/2018 10:41 am REASON FOR STUDY: LOCALIZED SWELLING,MASS, AND LUMP, NECK R22.1 LOCALIZED SWELLING, MASS AND LUMP, NECK COMPARISON: None. TECHNIQUE: Noncontrast scanning from skull base through lung apices with review of bone, soft tissue and lung windows. Reconstructed coronal and sagittal MPR images reviewed. All images stored on PAC S. All CT scanners at this facility use dose modulation, iterative reconstruction, and/or weight based d osing when appropriate to reduce radiation dose to as low as reasonably achievable (ALARA). [facility]: Dose Right [facility]: CareDose [facility]: Dose Right [facility]: Teradose 4D [facility]: Asl Analytical RADIATION DOSE: 23.5 mGy. LIMITATIONS: None. FINDINGS: SKULL BASE: Intact. MAJOR SALIVARY GLANDS: No solid or cystic masses. No inflammatory changes. LYMPHADENOPATHY: No adenopathy. MUCOSAL MASSES OR ASYMMETRY: No mucosal masses or asymmetry. LARYNX/CORDS: No abnormal findings. LUNG APICES: Clear. BONES: Intact. THYROID: Normal size. No masses. PARANASAL SINUSES: Clear. OTHER: No other significant finding. IMPRESSION: NO SIGNIFICANT FINDING IN THE SOFT TISSUES OF THE NECK. TECHNICAL DOCUMENTATION: JOB ID: [id number] Quality ID # [id number]: Final reports with documentation of one or more dose reduction techniques (e.g., Au tomated exposure control, adjustment of the mA and/or kV according to patient size, use of iterative reconstruction technique) 2010 [employer]- All Rights Reserved Reading location - IP/workstation name: [email or web address]
== END ==
LOC: RAD 09:54
PROVIDERS: ATTEND Internal Medicine
DX: R22.1 Localized swelling, mass and lump, neck (principal)
CPT/HCPCS: 70490

== ENCOUNTER 2019-03-31 19:22 | Emergency (ER) | payer MEDICAID ==
[2019-03-31] MEDS ORDERED: ASPIRIN 81 MG TABLET, CHEWABLE PO ONE (20:18)
[2019-03-31] MEDS ORDERED: NORMAL SALINE 1000 ML 1,000 ML IV ONE (20:19)
--- NOTE | 2019-03-31 20:19 | ER Document Report ---
ED Medical Screen (RME) - General Chief Complaint: Chest Pain Stated Complaint: CHEST PAIN/HEAD PAIN Time Seen by Provider: 03/31/19 20:16 Primary Care Provider: GRANT PIERRE MD [Primary Care Provider] - Follow up as needed Mode of Arrival: Ambulatory Information source: Patient Notes: 53-year-old female presented to ED for complaint of chest pain that goes around to the ribs to the back on both sides. She also has a headache congestion cough. She states she also has pain in her ear. She is alert oriented respirations regular and unlabored. She is diabetic type II. She states her Accu-Cheks been running in the 200s thank you it is 439 at this time. She does have a history of asthma pneumonia lives with her daughter. I have greeted and performed a rapid initial assessment of this patient. A comprehensive ED assessment and evaluation of the patient, analysis of test results and completion of medical decision making process will be conducted by an additional ED providers. TRAVEL OUTSIDE OF THE [place] IN LAST 30 DAYS: No - Related Data Allergies/Adverse Reactions: exenatide [From [place]] Allergy (Intermediate, Verified 03/31/19 20:09) Hives Past Medical History - Social History Chew tobacco use (# tins/day): No Frequency of alcohol use: None Drug Abuse: None Family history: None - Past Medical History Cardiac Medical History: Reports: Hx Hypercholesterolemia, Hx Hypertension Pulmonary Medical History: Reports: Hx Pneumonia Endocrine Medical History: Reports: Hx Diabetes Mellitus Type 2 Renal/ Medical History: Denies: Hx End Stage Renal Disease, Hx Kidney Stones, Hx Peritoneal Dialysis, Hx Renal Insufficiency GI Medical History: Reports: Hx Gastroesophageal Reflux Disease Musculoskeltal Medical History: Reports Hx Arthritis, Reports Hx Musculoskeletal Deformity, Reports Hx Musculoskeletal Trauma Skin Medical History: Reports Hx Psoriasis Psychiatric Medical History: Reports: Hx Depression Traumatic Medical History: Reports: Hx Fractures Past Surgical History: Reports: Hx Hysterectomy - Immunizations Immunizations up to date: Yes Hx Diphtheria, Pertussis, Tetanus Vaccination: Yes History of Influenza Vaccine for 04/2017 - 09/2017 Season: No Physical Exam - Vital signs Vitals: Temp Pulse Resp BP Pulse Ox 98.6 F 94 20 154/81 H 91 L 03/31/19 19:36 03/31/19 19:36 03/31/19 19:36 03/31/19 19:36 03/31/19 19:36 Course - Vital Signs Vital signs: Temp Pulse Resp BP Pulse Ox 98.6 F 94 20 154/81 H 91 L 03/31/19 19:36 03/31/19 19:36 03/31/19 19:36 03/31/19 19:36 03/31/19 19:36 Doctor's Discharge - Discharge Referrals: GRANT PIERRE MD [Primary Care Provider] - Follow up as needed
--- NOTE | 2019-03-31 20:56 | RADIOLOGY REPORT (SQ) ---
XR CHEST 2 VIEWS EXAM DATE: 03/31/2019 8:17 PM CDT HISTORY: Cough congestion rib pain chest pain . COMPARISON: 03/10/2018 FINDINGS: The heart size is within normal limits. No consolidation, pleural effusion, or pneumothorax is seen. The bony thorax is intact. IMPRESSION: No evidence of acute cardiopulmonary disease.
[2019-03-31 22:03] LABS: ABSOLUTE BASOPHILS # (AUTO) 0.1 10^3/uL (0.0-0.2); ABSOLUTE EOSINOPHILS # (AUTO) 0.4 10^3/uL (0.0-0.6); ABSOLUTE LYMPHOCYTES (AUTO) 2.3 10^3/uL (0.5-4.7); ABSOLUTE MONOCYTES (AUTO) 0.7 10^3/uL (0.1-1.4); ABSOLUTE NEUT (AUTO) 7.8 10^3/uL (1.7-8.2); BASOPHILS % (AUTO) 1.2 % (0-2); EOSINOPHILS % (AUTO) 3.2 % (0-6); HEMOGLOBIN 15.3 g/dL (12.0-15.5); LYMPHOCYTES % (AUTO) 20.5 % (13-45); MEAN CORPUSCULAR HEMOGLOBIN 29.7 pg (27.0-33.4); MEAN CORPUSCULAR HGB CONC 33.2 g/dL (32.0-36.0); MEAN CORPUSCULAR VOLUME 90 fl (80-97); MONOCYTES % (AUTO) 6.4 % (3-13); PLATELET COUNT 274 10^3/uL (150-450); RED BLOOD COUNT 5.14 10^6/uL (3.72-5.28); RED CELL DISTRIBUTION WIDTH 14.7 % (11.5-14.0); TOTAL CELLS COUNTED % (AUTO) 100 %; WHITE BLOOD COUNT 11.4 10^3/uL (4.0-10.5)
--- NOTE | 2019-03-31 22:04 | ER Document Report ---
ED General - General Chief Complaint: Chest Pain Stated Complaint: CHEST PAIN/HEAD PAIN Time Seen by Provider: 03/31/19 20:16 Primary Care Provider: GRANT PIERRE MD [Primary Care Provider] - Follow up in 3-5 days Mode of Arrival: Ambulatory Notes: Patient is a 53-year-old female with diabetes that presents to the emergency department for chief complaint of sinus congestion and cough. Patient states she is been having cough, congestion, ear pain for about a week now, is gotten progressively worse. She is had associated rib pain with her cough, on both sides of her ribs. She is had some chest tightness with the cough as well, and tenderness along her sternum. She has had white productive sputum associated with this as well. She states it feels similar to when she is had pneumonia in the past. She denies having any fevers or chills. She has complained of some ear pain, and as mentioned the rib pain, she rates both of those around a 4 out of 10, describes him as aching and constant pain. Past Medical History: Diabetes mellitus Past Surgical History: Partial hysterectomy Social History: Admits to smoking cigarettes, denies alcohol or drug use. Family History: Reviewed and noncontributory for presenting illness Allergies: Reviewed, see documented allergy list. REVIEW OF SYSTEMS: Other than noted above, the 12 point review of systems was reviewed with the patient and were negative, all pertinent findings are included in the HPI. PHYSICAL EXAMINATION: Vital signs reviewed, nursing noted reviewed. GENERAL: Obese female, no acute distress HEAD: Atraumatic, normocephalic. EYES: Eyes appear normal, extraocular movements intact, sclera anicteric, conjunctiva are normal. ENT: nares patent, oropharynx clear without exudates. Moist mucous membranes. Mild bilateral nasal turbinate injection, the right TM is erythematous and injected, and bulging consistent with otitis media, left TM appears unremarkable. NECK: Normal range of motion, supple without lymphadenopathy LUNGS: Breath sounds clear to auscultation bilaterally and equal. No wheezes rales or rhonchi. HEART: Regular rate and rhythm without murmurs ABDOMEN: Soft, obese, nontender, normoactive bowel sounds. No rebound, guarding, or rigidity. No masses appreciated. EXTREMITIES: Nontender, good range of motion, no pitting or edema. NEUROLOGICAL: No focal neurological deficits. Moves all extremities spontaneously Motor and sensory grossly intact on exam. PSYCH: Normal mood, normal affect. SKIN: Warm, Dry, normal turgor, no rashes or lesions noted on exposed skin TRAVEL OUTSIDE OF THE [place] IN LAST 30 DAYS: No - Related Data Allergies/Adverse Reactions: exenatide [From [place]] Allergy (Intermediate, Verified 03/31/19 20:09) Hives Past Medical History - General Information source: Patient - Social History Smoking Status: Never Smoker Chew tobacco use (# tins/day): No Frequency of alcohol use: None Drug Abuse: None Family History: CAD Patient has suicidal ideation: No Patient has homicidal ideation: No - Past Medical History Cardiac Medical History: Reports: Hx Hypercholesterolemia, Hx Hypertension Pulmonary Medical History: Reports: Hx Pneumonia Endocrine Medical History: Reports: Hx Diabetes Mellitus Type 2 Renal/ Medical History: Denies: Hx End Stage Renal Disease, Hx Kidney Stones, Hx Peritoneal Dialysis, Hx Renal Insufficiency GI Medical History: Reports: Hx Gastroesophageal Reflux Disease Musculoskeletal Medical History: Reports Hx Arthritis, Reports Hx Musculosk eletal Deformity, Reports Hx Musculoskeletal Trauma Skin Medical History: Reports Hx Psoriasis Psychiatric Medical History: Reports: Hx Depression Traumatic Medical History: Reports: Hx Fractures Past Surgical History: Reports: Hx Hysterectomy - Immunizations Immunizations up to date: Yes Hx Diphtheria, Pertussis, Tetanus Vaccination: Yes Hx Pneumococcal Vaccination: 07/20/10 Physical Exam - Vital signs Vitals: Temp Pulse Resp BP Pulse Ox 98.6 F 94 20 154/81 H 91 L 03/31/19 19:36 03/31/19 19:36 03/31/19 19:36 03/31/19 19:36 03/31/19 19:36 Course - Re-evaluation Re-evalutation: Patient seen and examined vital signs reviewed. Laboratory data and/or imaging were ordered as appropriate for the patient's presenting symptoms and complaint, with consideration of any critical or life threatening conditions that may be associated with their obtained history and exam as noted above. Patient was treated with Augmentin, to start treatment for right otitis media. Results were reviewed when available and demonstrated unremarkable work-up, patient was worked up for her chest pain in triage, this is muscular skeletal pain, on my examination and based on clinical history, the patient does have an otitis media, and is presenting with URI symptoms as well. Do not need further work-up, for her rib pain, negative troponin, EKG nonischemic pattern, chest x- ray negative. The patient was re-evaluated and was stable Evaluation was most consistent with URI, with right otitis media, will treat with Augmentin and Flonase and have her follow-up with her primary care. Results were discussed with the patient at this point, after careful considera tion I feel that that patient can be discharged from the emergency department, the patient was educated treatments and reasons to return to the emergency department based on their presumed diagnosis as noted above, they were advised to followup with a primary care physician in 2-3 days. Patient was agreeable to plan of care. *Note is created using voice recognition software and may contain spelling, syntax or grammatical errors. Laboratory 03/31/19 03/31/19 03/31/19 21:50 21:50 21:50 WBC 11.4 H RBC 5.14 Hgb 15.3 Hct 46.0 MCV 90 MCH 29.7 MCHC 33.2 RDW 14.7 H Plt Count 274 Lymph % (Auto) 20.5 Motley % (Auto) 6.4 Eos % (Auto) 3.2 Baso % (Auto) 1.2 Absolute Neuts (auto) 7.8 Absolute Lymphs (auto) 2.3 Absolute Monos (auto) 0.7 Absolute Eos (auto) 0.4 Absolute Basos (auto) 0.1 Seg Neutrophils % 68.7 Sodium 137.5 Potassium 4.7 Chloride 100 Carbon Dioxide 29 Anion Gap 9 BUN 16 Creatinine 0.65 Est GFR ( Amer) > 60 Est GFR (MDRD) Non-Af > 60 Glucose 394 H Calcium 9.0 Total Bilirubin 0.4 Direct Bilirubin 0.2 Neonat Total Bilirubin Not Reportable Neonat Direct Bilirubin Not Reportable Neonat Indirect Bili Not Reportable AST 21 ALT 17 Alkaline Phosphatase 102 Creatine Kinase 56 CK-MB (CK-2) 0.80 Troponin I < 0.012 Total Protein 7.0 Albumin 3.7 Chest X-Ray 03/31/19 20:17 IMPRESSION: No evidence of acute cardiopulmonary disease. - Vital Signs Vital signs: Temp Pulse Resp BP Pulse Ox 98.6 F 94 20 154/81 H 91 L 03/31/19 19:36 03/31/19 19:36 03/31/19 19:36 03/31/19 19:36 03/31/19 19:36 - Laboratory Result Diagrams: 03/31/19 21:50 03/31/19 21:50 Laboratory results interpreted by me: 03/31/19 03/31/19 21:50 21:50 WBC 11.4 H RDW 14.7 H Glucose 394 H - EKG Interpretation by Me Additional EKG results interpreted by me: EKG demonstrates sinus rhythm with a ventricular rate of 92 bpm, normal axis, normal intervals, no evidence of acute ischemia on this EKG, no prior for comparison. Discharge - Discharge Clinical Impression: Right otitis media Qualifiers: Otitis media type: suppurative Chronicity: acute Recurrence: non-recurrent Spontaneous tympanic membrane rupture: without spontaneous rupture Qualified Code(s): H66.001 - Acute suppurative otitis media without spontaneous rupture of ear drum, right ear URI (upper respiratory infection) Qualifiers: URI type: unspecified URI Qualified Code(s): J06.9 - Acute upper respiratory infection, unspecified Condition: Stable Disposition: HOME, SELF-CARE Instructions: Otitis Media ([facility]), Upper Respiratory Illness ([facility]) Additional Instructions: Take the prescribed antibiotics as directed and complete the entire course, and use the Flonase to help with your congestion, this will also help with your postnasal drip cough. Prescriptions: Amox Tr/Potassium Clavulanate [Augmentin 875-125 Tablet] 1 tab PO BID 10 Days #20 tablet Fluticasone Propionate [Flonase Nasal [place] 50 Mcg/[place] 16 gm] 1 spray NASL Q12 #1 inhaler Referrals: GRANT PIERRE MD [Primary Care Provider] - Follow up in 3-5 days
[2019-03-31 22:08] LABS: SEGMENTED NEUTROPHILS % (AUTO) 68.7 % (42-78)
[2019-03-31 22:15] LABS: ALBUMIN 3.7 g/dL (3.5-5.0); ALKALINE PHOSPHATASE 102 U/L (38-126); ANION GAP 9 (5-19); ASPARTATE AMINO TRANSFERASE 21 U/L (14-36); BILIRUBIN,DIRECT 0.2 mg/dL (0.0-0.4); BILIRUBIN,TOTAL 0.4 mg/dL (0.2-1.3); BLOOD UREA NITROGEN 16 mg/dL (7-20); CARBON DIOXIDE 29 mmol/L (22-30); CHLORIDE 100 mmol/L (98-107); CREATINE KINASE 56 U/L (30-135); GLUCOSE 394 mg/dL (75-110); POTASSIUM 4.7 mmol/L (3.6-5.0)
[2019-03-31] MEDS ORDERED: AMOXICILLIN TR/POT CLAVULANATE 500-125 MG TAB PO ONE (22:21)
[2019-03-31 22:32] LABS: TROPONIN I < 0.012 ng/mL
[2019-03-31 22:58] VITALS: BP 147/76
--- NOTE | 2019-04-01 08:53 | EKG REPORT ---
SEVERITY:- NORMAL ECG - SINUS RHYTHM : Confirmed by: Ana Laura Salmon MD 01-Apr-2019 08:52:48
== END 2019-03-31 22:57 | disposition home or self-care (01) ==
LOC: ER 19:22
DX: H66.001 Acute suppurative otitis media without spontaneous rupture of ear drum, right ear (principal); J06.9 Acute upper respiratory infection, unspecified; R07.9 Chest pain, unspecified; R51 Headache; E11.9 Type 2 diabetes mellitus without complications; F17.210 Nicotine dependence, cigarettes, uncomplicated; E78.00 Pure hypercholesterolemia, unspecified; I10 Essential (primary) hypertension; Z90.710 Acquired absence of both cervix and uterus
CPT/HCPCS: 93005; 99285; 36415; 82553; 82962; 82550; 85025; 80053; 84484; 71046; 93010; J3490

== ENCOUNTER 2019-04-18 00:02 | Emergency (ER) | payer MEDICAID ==
[2019-04-18] MEDS ORDERED: PREDNISONE 20 MG TABLET PO ONE (01:14)
[2019-04-18] MEDS ORDERED: IPRATROPIUM/ALBUTEROL 0.5-2.5 MG/3 ML AMPUL NEB ONE (01:14)
--- NOTE | 2019-04-18 02:21 | RADIOLOGY REPORT (SQ) ---
EXAM DESCRIPTION: XR RIBS UNILATERAL WITH CHEST COMPLETED DATE/TME: 04/18/2019 01:15 CLINICAL HISTORY: 53 years Female, cough, rib pain COMPARISON: None. NUMBER OF VIEWS/TECHNIQUE: 2 FINDINGS: No displaced rib fracture. No pneumothorax. Prominent interstitium. No acute cardiopulmonary findings. IMPRESSION: No acute findings.
--- NOTE | 2019-04-18 02:33 | ER Document Report ---
ED General - General Chief Complaint: Rib Pain Stated Complaint: SIDE PAIN Time Seen by Provider: 04/18/19 01:14 Primary Care Provider: GRANT PIERRE MD [Primary Care Provider] - Follow up as needed TRAVEL OUTSIDE OF THE [place] IN LAST 30 DAYS: No - HPI Notes: This is a 53-year-old female who presents today with a complaint of cough, congestion for the past 2 weeks. Patient states that she was put on Augmentin recently for bronchitis. He states his cough so much that he thinks he popped something in her ribs. Complains of right-sided rib pain for the past 2 days. Pain is worse with coughing, movement. Patient states she has some wheezing earlier today she wonders if she needs a breathing treatment. She denies any fever or chills. She denies any trauma. She describes her symptoms as moderate. - Related Data Allergies/Adverse Reactions: exenatide [From [place]] Allergy (Intermediate, Verified 03/31/19 20:09) Hives Past Medical History - Social History Smoking Status: Never Smoker Family History: CAD Patient has suicidal ideation: No Patient has homicidal ideation: No - Past Medical History Cardiac Medical History: Reports: Hx Hypercholesterolemia, Hx Hypertension Pulmonary Medical History: Reports: Hx Pneumonia Endocrine Medical History: Reports: Hx Diabetes Mellitus Type 2 Renal/ Medical History: Denies: Hx End Stage Renal Disease, Hx Kidney Stones, Hx Peritoneal Dialysis, Hx Renal Insufficiency GI Medical History: Reports: Hx Gastroesophageal Reflux Disease Musculoskeletal Medical History: Reports Hx Arthritis, Reports Hx Musculoskeletal Deformity, Reports Hx Musculoskeletal Trauma Skin Medical History: Reports Hx Psoriasis Psychiatric Medical History: Reports: Hx Depression Traumatic Medical History: Reports: Hx Fractures Past Surgical History: Reports: Hx Hysterectomy - Immunizations Immunizations up to date: Yes Hx Diphtheria, Pertussis, Tetanus Vaccination: Yes Hx Pneumococcal Vaccination: 07/20/10 Review of Systems - Review of Systems Constitutional: denies: Fever Cardiovascular: denies: Palpitations, Syncope, Dizziness Respiratory: Cough, Short of breath, Wheezing Gastrointestinal: denies: Abdominal pain, Nausea, Vomiting -: Yes All other systems reviewed and negative Physical Exam - Vital signs Vitals: Temp Pulse Resp BP Pulse Ox 97.5 F 94 18 157/77 H 93 04/18/19 00:08 04/18/19 00:08 04/18/19 00:08 04/18/19 00:08 04/18/19 00:08 - General General appearance: Appears well, Alert - HEENT Head: Normocephalic, Atraumatic Eyes: Normal Pupils: PERRL - Respiratory Respiratory status: No respiratory distress Chest status: Tender - There is reproducible pain with movement. There is tenderness in the right lateral ribs. There is some splinting. No crepitus or flail chest., Pain on movement, Pain with cough Breath sounds: Nonproductive cough, Wheezing - Few scattered wheezes appreciated. Chest palpation: Normal - Cardiovascular Rhythm: Regular Heart sounds: Normal auscultation Murmur: No - Abdominal Inspection: Normal Distension: No distension Bowel sounds: Normal Tenderness: Nontender Organomegaly: No organomegaly - Neurological Neuro grossly intact: Yes Cognition: Normal Orientation: AAOx4 [place] Scale Eye Opening: Spontaneous [place] Coma Scale Verbal: Oriented [place] Coma Scale Motor: Obeys Commands [place] Coma Scale Total: 15 Speech: Normal Motor strength normal: LUE, RUE, LLE, RLE Sensory: Normal - Psychological Associated symptoms: Normal affect, Normal mood - Skin Skin Temperature: Warm Skin Moisture: Dry Skin Color: Normal Course - Re-evaluation Re-evalutation: 04/18/19 02:31 Differential diagnosis includes bronchitis versus costochondritis versus pneumonia versus asthma. Doubt occult rib fracture. There is no clinical suspicion for pulmonary embolus. Will give breathing treatment given wheezing on exam. 04/18/19 02:42 Patient reevaluated. No wheezing. She feels much better after neb treatment. X-ray is negative. She is stable for discharge. We will put her on albuterol for bronchospasm. Follow-up discussed with patient. - Vital Signs Vital signs: Temp Pulse Resp BP Pulse Ox 97.5 F 94 18 157/77 H 93 04/18/19 00:08 04/18/19 00:08 04/18/19 00:08 04/18/19 00:08 04/18/19 00:08 Discharge - Discharge Clinical Impression: Bronchitis, Costochondritis, Wheezing Condition: Stable Disposition: HOME, SELF-CARE Instructions: Bronchitis With Bronchospasm (Wheezing) ([facility]), Costochondritis ([facility]) Prescriptions: Hydrocodone Bit/Homatropine [Hycodan Syrup 5-1.5 mg/5 ml Ud Cup] 5 ml PO Q4HP PRN #120 ml PRN Reason: Prednisone [Deltasone 20 mg Tablet] 3 tab PO DAILY 5 Days #15 tablet Albuterol Sulfate [Proair HFA Inhalation Aerosol 8.5 gm MDI] 2 puff IH Q4H PRN #1 mdi PRN Reason: Referrals: GRANT PIERRE MD [Primary Care Provider] - Follow up in 3-5 days
[2019-04-18 02:58] VITALS: BP 148/65
== END 2019-04-18 03:03 | disposition home or self-care (01) ==
LOC: ER 00:02
DX: M94.0 Chondrocostal junction syndrome [Tietze] (principal); J40 Bronchitis, not specified as acute or chronic; R07.81 Pleurodynia; R06.2 Wheezing; R05 Cough; E11.9 Type 2 diabetes mellitus without complications; Z90.710 Acquired absence of both cervix and uterus
CPT/HCPCS: 94640; 99283; 71101; J7512; J7620

== ENCOUNTER 2019-05-21 18:06 | Emergency (ER) | payer MEDICAID ==
--- NOTE | 2019-05-21 18:19 | ER Document Report ---
ED Medical Screen (RME) - General Chief Complaint: Fall Stated Complaint: FALL/NECK AND BACK PAIN Time Seen by Provider: 05/21/19 18:15 Primary Care Provider: GRANT PIERRE MD [Primary Care Provider] - Follow up as needed Mode of Arrival: Ambulatory Information source: Patient Notes: 53-year-old female presents to ED for complaint of pain to the left breast going through to her back of her neck since she fell on Thursday at a football game. She fell down 3 steps in the middle of the steps. She states that her knee and shoulder on the left side were hurt and but now only her left breast is hurting. She states it feels like somebody stabbing her. Patient is alert oriented respirations regular nonlabored speaking in full sentences. There is no bruisin g to the area but it is very tender to palpation to the upper chest area. She does have a heat rash underneath both breast. Patient states she is on Percocet at home. She states she does not smoke drink or use any illicit drugs. I have greeted and performed a rapid initial assessment of this patient. A comprehensive ED assessment and evaluation of the patient, analysis of test results and completion of medical decision making process will be conducted by an additional ED providers. TRAVEL OUTSIDE OF THE [place] IN LAST 30 DAYS: No - Related Data Allergies/Adverse Reactions: exenatide [From [place]] Allergy (Intermediate, Verified 04/18/19 03:21) Hives Past Medical History - Social History Family history: None - Past Medical History Cardiac Medical History: Reports: Hx Hypercholesterolemia, Hx Hypertension Pulmonary Medical History: Reports: Hx Pneumonia Endocrine Medical History: Reports: Hx Diabetes Mellitus Type 2 Renal/ Medical History: Denies: Hx End Stage Renal Disease, Hx Kidney Stones, Hx Peritoneal Dialysis, Hx Renal Insufficiency GI Medical History: Reports: Hx Gastroesophageal Reflux Disease Musculoskeltal Medical History: Reports Hx Arthritis, Reports Hx Musculoskeletal Deformity, Reports Hx Musculoskeletal Trauma Skin Medical History: Reports Hx Psoriasis Psychiatric Medical History: Reports: Hx Depression Traumatic Medical History: Reports: Hx Fractures Past Surgical History: Reports: Hx Hysterectomy - Immunizations Immunizations up to date: Yes Hx Diphtheria, Pertussis, Tetanus Vaccination: Yes Doctor's Discharge - Discharge Referrals: GRANT PIERRE MD [Primary Care Provider] - Follow up as needed
--- NOTE | 2019-05-21 19:09 | RADIOLOGY REPORT (SQ) ---
EXAM DESCRIPTION: RIBS LEFT W/PA CHEST COMPLETED DATE/TIME: 05/21/2019 6:55 pm REASON FOR STUDY: Fall pain in the left ribs COMPARISON: None. TECHNIQUE: Frontal view of the chest and additional views of the left ribs acquired. NUMBER OF VIEWS: Four view. LIMITATIONS: None. FINDINGS: FRONTAL CXR: No pneumothorax. No pleural effusion. No atelectasis or infiltrates. RIBS: No displaced rib fractures. No lytic or blastic bony lesions. OTHER: No other significant finding. IMPRESSION: NO PNEUMOTHORAX. NO DISPLACED RIB FRACTURES. COMMENT: SITE OF TRAUMA/COMPLAINT MARKED/STAMP COMPLETED: NO. TECHNICAL DOCUMENTATION: JOB ID: [id number] [employer]- All Rights Reserved Reading location - IP/workstation name: [email or web address]
[2019-05-21] MEDS ORDERED: NAPROXEN 250 MG TABLET PO ONE (19:55)
[2019-05-21] MEDS ORDERED: METHOCARBAMOL 500 MG TABLET PO ONE (19:55)
--- NOTE | 2019-05-21 19:59 | ER Document Report ---
HPI - HPI Time Seen by Provider: 05/21/19 18:15 Pain Level: 3 Context: Patient is a 53-year-old female who presents to the emergency department with a chief complaint of left chest wall pain. Patient reports she fell Thursday a lot a soccer game. Patient reports it was wet and she slipped on the metal bleachers causing her to fall. Patient states she did not hit her head or lose consciousness but she is unsure exactly how she fell. Patient reports she does have a weak left leg gives out on her randomly. Patient states she is unsure if she landed on her arm or her chest but she is having left chest wall pain. Patient reports the pain is worse with movement, deep breath and coughing. Patient reports she does take Percocet for her chronic back pain has been using heating pads over the area with minimal relief. Patient reports she initially thought she was getting better but the pain was worse today. Patient denies use of blood thinners. Patient reports that the pain in the left chest wall is sharp in nature and feels like it stops all the way back into her left upper back. - REPRODUCTIVE Reproductive: DENIES: : Past Medical History - General Information source: Patient - Social History Smoking Status: Never Smoker Chew tobacco use (# tins/day): No Frequency of alcohol use: None Drug Abuse: None Lives with: Family Family History: CAD Patient has suicidal ideation: No Patient has homicidal ideation: No - Past Medical History Cardiac Medical History: Reports: Hx Hypercholesterolemia, Hx Hypertension Pulmonary Medical History: Reports: Hx Pneumonia EENT Medical History: Reports: None Neurological Medical History: Reports: None Endocrine Medical History: Reports: Hx Diabetes Mellitus Type 2 Renal/ Medical History: Reports: None. Denies: Hx End Stage Renal Disease, Hx Kidney Stones, Hx Peritoneal Dialysis, Hx Renal Insufficiency Malignancy Medical History: Reports: None GI Medical History: Reports: Hx Gastroesophageal Reflux Disease Musculoskeletal Medical History: Reports Hx Arthritis, Reports Hx Musculoskeletal Deformity, Reports Hx Musculoskeletal Trauma Skin Medical History: Reports Hx Psoriasis Psychiatric Medical History: Reports: Hx Depression Traumatic Medical History: Reports: Hx Fractures Past Surgical History: Reports: Hx Hysterectomy - Immunizations Immunizations up to date: Yes Hx Diphtheria, Pertussis, Tetanus Vaccination: Yes Hx Pneumococcal Vaccination: 07/20/10 Vertical Provider Document - CONSTITUTIONAL Agree With Documented VS: Yes Exam Limitations: No Limitations General Appearance: No Apparent Distress - INFECTION CONTROL TRAVEL OUTSIDE OF THE [place] IN LAST 30 DAYS: No - HEENT HEENT: Atraumatic, Normocephalic, PERRLA - NECK Neck: Normal Inspection - RESPIRATORY Respiratory: Breath Sounds Normal, No Respiratory Distress Notes: Patient does have tenderness to the left chest wall and left anterior ribs. Patient does not have any ecchymosis or significant edema or erythema noted. Patient also has tenderness to the left breast. Patient has tenderness to the left trapezius muscle and deltoid muscle. Patient does not have any cervical, thoracic or lumbar midline tenderness with palpation. - CARDIOVASCULAR Cardiovascular: Regular Rate, Regular Rhythm - GI/ABDOMEN Gastrointestinal: Abdomen Soft, Abdomen Non-Tender, Normal Bowel Sounds - MUSCULOSKELETAL/EXTREMETIES Musculoskeletal/Extremeties: FROM - NEURO Level of Consciousness: Awake, Alert, Appropriate - DERM Integumentary: Warm, Dry, No Rash Course - Re-evaluation Re-evalutation: 05/21/19 20:04 Patient x-ray was negative. Will incorporate a muscle relaxer as well as an anti-inflammatory. Patient continues to use warm compresses. Patient to return if symptoms worsen and to follow-up with Dr. Pierre next week if symptoms persist. Patient verbalized understanding. I did inform the patient to be extremely careful when taking Percocet with the Robaxin as these medications can make her drowsy. - Vital Signs Vital signs: Temp Pulse Resp BP Pulse Ox 98.4 F 97 20 187/87 H 98 05/21/19 18:16 05/21/19 18:16 05/21/19 18:16 05/21/19 18:16 05/21/19 18:16 - Diagnostic Test Radiology reviewed: Reports reviewed Radiology results interpreted by me: 05/21/19 19:59 Ribs w/Chest X-Ray 05/21/19 18:19 IMPRESSION: NO PNEUMOTHORAX. NO DISPLACED RIB FRACTURES. Discharge - Discharge Clinical Impression: Left-sided chest wall pain, Rib pain on left side, Breast pain, left, Upper back pain on left side Condition: Stable Disposition: HOME, SELF-CARE Additional Instructions: *Today you are seen in the emergency department for left chest wall pain. Your symptoms are consistent with a muscle strain. This often occurs with strenuous activity or during an injury most likely from the fall. We did take a chest x- ray which did not show any acute bony abnormality such as a rib fracture. *You are also being diagnosed with a rib contusion. Usually takes a few weeks for these injured ribs to heal. He need to cough and take deep breaths at least every hour to to prevent lung complications. *Use the incentive spirometer as directed. *Use your Percocet as prescribed, incorporate an anti-inflammatory such as naproxen as prescribed, I am also prescribing you muscle relaxer. Please be very careful taking muscle relaxers with Percocet. Muscle relaxers can make you sleepy. Do not drive or operate heavy machinery while taking this medication. Do not combine with alcohol. Muscle Strain You have strained a muscle -- torn the fibers within the muscle. This often occurs with strenuous exertion, or during an injury that suddenly stretches the muscle. The seriousness of a strain varies. Some strains heal within days, others cause problems for months. X-rays cannot show a muscle strain. X-rays are taken only if symptoms suggest that a fracture could be present. The usual treatment of a muscle strain is rest and ice packs. Sometimes, a sling, splint, or crutches may be necessary to rest the muscle. The muscle can be used again once pain subsides. Severe strains require a special exercise and stretching program to prevent permanent stiffness and disability. Your doctor will advise you if this will be necessary. Call the doctor immediately if pain or swelling becomes severe, or if numbness or discoloration develop. Muscle Relaxers Muscle relaxing medications are usually prescribed for acute muscle spasm or injury to the neck and back. They are often combined with antiinflammatory pain medication for increased relief. You may stop the muscle relaxer when the pain and stiffness have improved. Start the medication again if spasms recur. Muscle relaxers may cause drowsiness, especially with the first dose. Do not operate machinery or drive while under the effects of the medication. Most muscle relaxers last up to 24 hours. Do not combine the medication with alcohol. Rib Contusion You have been diagnosed as having bruised ribs. It will usually take a few weeks for these injured ribs to heal. You should cough or take a deep breath at least every hour or two to prevent lung complications. You should not engage in any strenuous physical ac tivity until released by your physician. The usual rule is "if it hurts, don't do it." Return if you develop any of the following: (1) Fever or chills. (2) Persistent cough, coughing up blood, or shortness of breath. (3) Increasing pain. (4) Weakness, lightheadedness, or fainting. Prescriptions: Naproxen 500 mg PO BID PRN #14 tablet PRN Reason: Methocarbamol [Robaxin 500 mg Tablet] 1,000 mg PO TID #21 tablet Referrals: GRANT PIERRE MD [Primary Care Provider] - Follow up as needed
[2019-05-21 20:21] VITALS: BP 151/75
== END 2019-05-21 20:30 | disposition home or self-care (01) ==
LOC: ER 18:06
DX: R07.89 Other chest pain (principal); M54.6 Pain in thoracic spine; R07.81 Pleurodynia; N64.4 Mastodynia; W01.0XXA Fall on same level from slipping, tripping and stumbling without subsequent striking against object, initial encounter; G89.29 Other chronic pain; M54.9 Dorsalgia, unspecified; E78.00 Pure hypercholesterolemia, unspecified; I10 Essential (primary) hypertension; E11.9 Type 2 diabetes mellitus without complications; Z90.710 Acquired absence of both cervix and uterus
CPT/HCPCS: 71101; J3490 ×2; 99283

== ENCOUNTER → 2019-05-24 | Outpatient (CLI) | payer MEDICAID ==
--- NOTE | 2019-05-24 15:22 | WOMENS IMAGING REPORT ---
EXAM DESCRIPTION: 3D SCREENING MAMMO BILAT COMPLETED DATE/TIME: 05/24/2019 1:31 pm REASON FOR STUDY: Z12.31 ENCOUNTER FOR SCREENING MAMMOGRAM FOR MALIGNANT NEOPLASM OF BREAST Z12.31 ENCNTR SCREEN MAMMOGRAM FOR MALIGNANT NEOPLASM OF MARTIN FINDINGS: RIGHT BREAST MASSES: Small mass in the anterior central central breast, 4.7 cm from the nipple. This findings be st seen on the RCCNP view. CALCIFICATIONS: No new or suspicious calcifications. ARCHITECTURAL DISTORTION: None. ASYMMETRY: None noted. OTHER: No other significant findings. LEFT BREAST MASSES: No suspicious masses. CALCIFICATIONS: No new or suspicious calcifications. ARCHITECTURAL DISTORTION: None. ASYMMETRY: None noted. OTHER: No other significant findings. IMPRESSION: 1. Small mass Right breast. 0 Incomplete: Needs Additional Imaging Evaluation and/or prior Mammograms for Comparison. BREAST DENSITY: b. There are scattered areas of fibroglandular density. BIRAD: ASSESSMENT: 0 Incomplete: Needs Additional Imaging Evaluation and/or prior Mammograms for C omparison. RECOMMENDATION: 1. Special view mammogram Right breast: spot compression views, true lateral view and ultrasound if needed. The patient will be contacted for additional imaging. COMMENT: The patient has been notified of the results by letter per MQSA requirements. Additional no tification policies are in place for contacting patient with suspicious or incomplete findings. Quality ID #225: The [employer] recommends an annual screening mammogram for women aged 40 years or over. This facility utilizes a reminder system to ensure that all patients receive reminder letters, and/or direct phone calls for appointments. This includes reminders for routine scr eening mammograms, diagnostic mammograms, or other Breast Imaging Interventions when appropriate. Th is patient will be placed in the appropriate reminder system. TECHNICAL DOCUMENTATION: FINDING NUMBER: (1) ASSESSMENT: (1) JOB ID: [id number] [employer]- All Rights Reserved COMPARISON: Digital bilateral screening mammograms dated 07/19/2015 and 10/26/2008. EXAM PARAMETERS: Standard craniocaudal and mediolateral oblique views of each breast recorded using digital acquisition and breast tomosynthesis. Read with the assistance of CAD. .OM - R2 Gin Inspector Version 9.2 LIMITATIONS: None. Reading location - IP/workstation name: [email or web address]
== END ==
LOC: WI 12:46
PROVIDERS: ATTEND Internal Medicine
DX: Z12.31 Encounter for screening mammogram for malignant neoplasm of breast (principal); N63.10 Unspecified lump in the right breast, unspecified quadrant
CPT/HCPCS: 77063; 77067

== ENCOUNTER → 2019-05-31 | Outpatient (CLI) | payer MEDICAID ==
--- NOTE | 2019-05-31 14:30 | WOMENS IMAGING REPORT ---
EXAM DESCRIPTION: RIGHT DIAGNOSTIC MAMMO W/CAD; U/S BREAST UNILATERAL, COMPL COMPLETED DATE/TIME: 05/31/2019 11:24 am; 05/31/2019 11:52 am REASON FOR STUDY: R92.2 INCONCLUSIVE MAMMOGRAM; RT BREAST R92.2 R92.2 INCONCLUSIVE MAMMOGRAM COMPARISON: 05/24/2019. Priors from 2014 and 2008. EXAM PARAMETERS: Spot MLO and CC. Non spot compressed true lateral. LIMITATIONS: None. FINDINGS: BREAST LATERALITY: Right MASSES: Persistent irregularly marginated central breast mass, see ultrasound below. CALCIFICATIONS: No new or suspicious calcifications. ARCHITECTURAL DISTORTION: None. ASYMMETRY: None noted. OTHER: No other significant findings. Ultrasound: At approximately 12 o'clock in the right breast, there is an irregularly marginated wide r than tall mass which measures up to 9 mm. Irregular posterior shadowing with poorly defined margin s. The axilla is scanned as well. No mass appreciated. No abnormal nodes. IMPRESSION: 1. Small central breast mass close to 12 o'clock. BREAST DENSITY: b. There are scattered areas of fibroglandular density. BIRAD: ASSESSMENT: 4 Suspicious. Biopsy should be performed in the absence of clinical contra-indic ation. RECOMMENDATION: RECOMMENDED FOLLOW UP: Birads 4: Biopsy should be performed in the absence of clinic al contraindication. SPECIFIC INTERVENTION/IMAGING/CONSULTATION RECOMMENDED:The suspicious finding(s) amenable to US guide d core/vacuum assisted biopsy. COMMUNICATION:I was unable to discuss the findings with the patient at the time of her visit. She wa s instructed by the technologist to followup with referring clinician for results and further managem ent. COMMENT: The patient has been notified of the results by letter per MQSA requirements. Additional no tification policies are in place for contacting patient with suspicious or incomplete findings. Quality ID #225: The [employer] recommends an annual screening mammogram for women aged 40 years or over. This facility utilizes a reminder system to ensure that all patients receive reminder letters, and/or direct phone calls for appointments. This includes reminders for routine scr eening mammograms, diagnostic mammograms, or other Breast Imaging Interventions when appropriate. Th is patient will be placed in the appropriate reminder system. TECHNICAL DOCUMENTATION: FINDING NUMBER: (1) ASSESSMENT: (1) JOB ID: [id number]- All Rights Reserved Reading location - IP/workstation name: [email or web address]
== END ==
LOC: WI 11:11
PROVIDERS: ATTEND Internal Medicine
DX: N63.10 Unspecified lump in the right breast, unspecified quadrant (principal)
CPT/HCPCS: 76641; 77065

== ENCOUNTER 2019-08-17 08:12 | Day surgery (SDC) | payer MEDICAID ==
[2019-08-12 10:31] LABS: ABSOLUTE BASOPHILS # (AUTO) 0.1 10^3/uL (0.0-0.2); ABSOLUTE EOSINOPHILS # (AUTO) 0.5 10^3/uL (0.0-0.6); ABSOLUTE LYMPHOCYTES (AUTO) 2.1 10^3/uL (0.5-4.7); ABSOLUTE MONOCYTES (AUTO) 0.6 10^3/uL (0.1-1.4); ABSOLUTE NEUT (AUTO) 7.2 10^3/uL (1.7-8.2); BASOPHILS % (AUTO) 0.6 % (0-2); EOSINOPHILS % (AUTO) 4.6 % (0-6); HEMATOCRIT 40.9 % (36.0-47.0); HEMOGLOBIN 13.9 g/dL (12.0-15.5); MEAN CORPUSCULAR HEMOGLOBIN 31.1 pg (27.0-33.4); MEAN CORPUSCULAR VOLUME 91 fl (80-97); MONOCYTES % (AUTO) 5.6 % (3-13); PLATELET COUNT 264 10^3/uL (150-450); RED BLOOD COUNT 4.47 10^6/uL (3.72-5.28); RED CELL DISTRIBUTION WIDTH 14.1 % (11.5-14.0); SEGMENTED NEUTROPHILS % (AUTO) 69.2 % (42-78); TOTAL CELLS COUNTED % (AUTO) 100 %; WHITE BLOOD COUNT 10.4 10^3/uL (4.0-10.5)
[2019-08-12 10:56] LABS: ANION GAP 10 (5-19); BLOOD UREA NITROGEN 19 mg/dL (7-20); CALCIUM 8.9 mg/dL (8.4-10.2); CARBON DIOXIDE 30 mmol/L (22-30); CHLORIDE 98 mmol/L (98-107); GLUCOSE 279 mg/dL (75-110); POTASSIUM 4.1 mmol/L (3.6-5.0)
--- NOTE | 2019-08-12 11:35 | RADIOLOGY REPORT (SQ) ---
EXAM DESCRIPTION: CHEST PA/LATERAL COMPLETED DATE/TIME: 08/12/2019 9:58 am REASON FOR STUDY: PRE-OP COMPARISON: 03/31/2019 EXAM PARAMETERS: NUMBER OF VIEWS: two views TECHNIQUE: Digital Frontal and Lateral radiographic views of the chest acquired. RADIATION DOSE: NA LIMITATIONS: none FINDINGS: LUNGS AND PLEURA: No opacities, masses or pneumothorax. No pleural effusion. MEDIASTINUM AND HILAR STRUCTURES: No masses or contour abnormalities. HEART AND VASCULAR STRUCTURES: Heart normal size. No evidence for failure. BONES: No acute findings. HARDWARE: None in the chest. OTHER: No other significant finding. IMPRESSION: NO SIGNIFICANT RADIOGRAPHIC FINDING IN THE CHEST. TECHNICAL DOCUMENTATION: JOB ID: [id number] [employer]- All Rights Reserved Reading location - IP/workstation name: [email or web address]
[~2019-08-17 08:12] MED LIST: CEFAZOLIN 1 GM/D5W RTU 1 GM/50 ML RTUPB IV PRN; DEXTROSE 5%-LACTATED RINGERS 1,000 ML IV PRN; LIDOCAINE 0.5% INJ-PF (5 MG/ML) 50 ML SDV SUBCUT PRN; LIDOCAINE 4% TRANSPARENT DRESSING 5 GM KIT TP PRN; RINGERS SOLUTION,LACTATED 1,000 ML IV PRN
[2019-08-17] MEDS ORDERED: LIDOCAINE 4% TRANSPARENT DRESSING 5 GM KIT ONE (08:27)
[2019-08-17] MEDS ORDERED: CEFAZOLIN 1 GM/D5W RTU 1 GM/50 ML RTUPB IV ONE (09:18)
[2019-08-17] MEDS ORDERED: KETOROLAC TROMETHAMINE 60 MG/2 ML SDV ONE (10:41)
[2019-08-17] MEDS ORDERED: ALBUTEROL SULFATE 0.083% NEB 2.5 MG/3 ML AMPUL NEB ONE (11:05)
[2019-08-17] MEDS ORDERED: MICROFIBRILLAR COLLAGEN 1 GM PACK ONE (11:23)
[2019-08-17] MEDS ORDERED: LIDOCAINE 1%/EPINEPHRINE INJ 20 ML VIAL ONE (11:23)
[2019-08-17] MEDS ORDERED: METHYLENE BLUE 50 MG/10 ML AMPULE ONE (11:23)
[2019-08-17] MEDS ORDERED: LIDOCAINE 2% INJ-PF (20 MG/ML) 10 ML AMPUL ONE (11:25)
[2019-08-17] MEDS ORDERED: FENTANYL CITRATE INJ/PF 100 MCG/2 ML AMPUL ONE (11:25)
[2019-08-17] MEDS ORDERED: ONDANSETRON HCL INJ/PF 4 MG/2 ML SDV ONE (11:25)
[2019-08-17] MEDS ORDERED: DEXAMETHASONE SOD PHOSPHATE INJ 4 MG/1 ML VIAL ONE (11:25)
[2019-08-17] MEDS ORDERED: MIDAZOLAM 2 MG/2 ML INJ ONE (11:25)
[2019-08-17] MEDS ORDERED: PROPOFOL INJ 200 MG/20 ML VIAL IV ONE ×3 (11:26→13:06)
[2019-08-17] MEDS ORDERED: DEXMEDETOMIDINE INJ 80 MCG/20 ML VIAL IV ONE (11:26)
[2019-08-17] MEDS ORDERED: OXYCODONE-ACETAMINOPHEN 5-325 MG TABLET PO PRN ×2 (12:49)
[2019-08-17] MEDS ORDERED: PROMETHAZINE HCL INJ 25 MG/1 ML VIAL IV PRN ×2 (12:49)
[2019-08-17] MEDS ORDERED: MEPERIDINE HCL/PF INJ 25 MG/1 ML DISP.SYRIN IV PRN (12:49)
[2019-08-17] MEDS ORDERED: DIPHENHYDRAMINE HCL 50 MG/ML VIAL IV PRN (12:49)
[2019-08-17] MEDS ORDERED: ONDANSETRON HCL INJ/PF 4 MG/2 ML SDV IV PRN (12:49)
[2019-08-17] MEDS ORDERED: FENTANYL CITRATE INJ/PF 100 MCG/2 ML AMPUL IV PRN ×3 (12:49)
[2019-08-17] MEDS ORDERED: MORPHINE SULFATE 10 MG/ML INJ IV PRN (12:49)
--- NOTE | 2019-08-17 13:37 | RADIOLOGY REPORT (SQ) ---
EXAM DESCRIPTION: NM LYMPHATICS/LYMPH GLANDS COMPLETED DATE/TIME: 08/17/2019 10:31 am REASON FOR STUDY: RT BREAST MALIGNANT NEOPLASM C50.911 MALIGNANT NEOPLASM OF UNSP SITE OF RIGHT FEM TATA ALEJO COMPARISON: 05/31/2019 RADIONUCLIDE AND DOSE: 568 microcuries TC-99m tilmanocept - [employer]. The route of agent administration: Subcutaneous in the skin. TECHNIQUE: The skin of the right breast was prepped in sterile fashion. The radiopharmaceutical was administered in equally divided doses in the periareolar breast. LIMITATIONS: None FINDINGS: Images demonstrate activity at the injection site and at the right axilla. IMPRESSION: ADMINISTRATION OF RADIOPHARMACEUTICAL FOR SENTINEL LYMPH NODE EVALUATION. TECHNICAL DOCUMENTATION: JOB ID: [id number] [employer]- All Rights Reserved Reading location - IP/workstation name: [email or web address]
--- NOTE | 2019-08-17 13:59 | Discharge Summary ---
Discharge Summary (SDC) - Discharge Final Diagnosis: Invasive right breast carcinoma Date of Surgery: 08/17/19 Discharge Date: 08/17/19 Condition: Good Treatment or Instructions: Teach patient drain care; may shower in 24 hours; prescription for Toradol on chart; wear supportive bra; follow-up with [facility] in 1 to 2 weeks Referrals: GRANT PIERRE MD [Primary Care Provider] - Discharge Diet: As Tolerated Discharge Activity: Activity As Tolerated Home Care Assistance: None Needed Report the Following to Your Physician Immediately: Shortness of Breath, Increase in Pain, Fever over 101 Degrees
--- NOTE | 2019-08-17 14:10 | Operative Report ---
Operative Report DATE OF SURGERY: 08/17/19 PREOPERATIVE DIAGNOSIS: Invasive right breast carcinoma status post minimally i nvasive biopsy and clip marker placement POSTOPERATIVE DIAGNOSIS: Same OPERATION: 1. Ultrasound directed right breast lumpectomy with drain of operat padma site. 2. Interpretation of specimen radiographs. 3. Right axillary sentinel lymph node biopsy x3 SURGEON: DONG JACKSON ANESTHESIA: GA TISSUE REMOVED OR ALTERED: Lumpectomy specimens x2 right breast; [place] lymph nodes x3 COMPLICATIONS: None ESTIMATED BLOOD LOSS: Scant INTRAOPERATIVE FINDINGS: See below PROCEDURE: The patient was seen in the preop holding area where the right breast was marked. The patient had previously undergone lymphoscintigraphy of the right breast and axilla. There was evidence of uptake in the right axilla based on bedside neoprobe assessment. The patient was taken to the main operating room and general anesthesia was induced. Right arm was abducted, right breast exposed, prepped and draped sterile fashion. Surgical plan and surgical timeout were conducted. As part of the dual mapping technique, approximately 2-1/2 cc of full-strength methylene blue was injected into the right breast, 10 o'clock position, areole or border, intradermally. A wheal was raised and the right breast massaged for 5 minutes. The right breast and right axilla were then prepped and draped in sterile fashion after clipping the hair with electric clippers. Surgical plan and surgical timeout were conducted. The first portion of the operation consisted of the right breast lumpectomy. Using ultrasound as a guide, real-time, we identified what we believed to be the clip marker adjacent to the small hypoechoic mass in the right breast, 11:30 position, approximately 6 cm from the nipple. The skin was anesthetized with 1% plain lidocaine. A very narrow 3 and half centimeter oblong oriented skin excision was made with the #10 blade. Using ultrasound as a guide real-time, and tracking what was believed to be the clip marker in the right breast which was a hypoechoic density with posterior shadowing, we removed a small lump of breast tissue approximately 4 x 5 x 5 cm. Intraoperative ultrasound again was used as a guide during the dissection. The specimen was marked with a short suture in the superior position and a long suture in the lateral position, and then placed on a Ge dish and imaged specimen radiograph machine in the operating room. This revealed a hyper dense round BB that was inconsistent with a breast clip marker traditionally deployed during the minimally invasive procedures. This appeared to be a macrocalcification. Furthermore it was unclear whether the lumpectomy specimen had the target tumor which is approximately 1cm. The specimen was sent directly to Dr. Sandoval, pathologist, who did not feel the specimen contained the target tumor. Dr. Jackson scrubbed back into the field, and using ultrasound as a guide, identified the tumor on the, lateral surface of the lumpectomy site. Photographs were taken and retained for the record. A second lumpectomy specimen now performed by placing a suture just above the tumor as confirmed by ultrasonography. The lumpectomy specimen was approximately 5 x 4 x 4 cm. It was removed and the patient, and labeled with a long suture in the lateral position is short suture in the superior position. The specimen, the second lumpectomy specimen, was placed in a Ge dish, and photographed with the specimen radiograph machine in the operating room. This in fact confirmed retention of the target lesion which was the tumor, and the more typical spiral clip marker. The specimen was then taken pathology where Dr. Dorothea Shane examined it, and believed it to contain the target tissue, the invasive cancer. She also felt that the tumor margins were clear. She did express concern about the anterior tumor margin; I reassured her that anterior to the second lumpectomy specimen was the first, more superficial lumpectomy specimen, and then no further anterior margin could be obtained. At this point felt that the lumpectomy portion of the operation was complete. We now turned our attention to the right axilla. There was an area of increased activity in the low axilla based on neoprobe scanning. Skin was anesthetized 1% plain lidocaine, and a 3 cm incision was made in the low axilla. Winthrop lymph node harvest was begun. 3 sentinel lymph nodes were harvested. The first 2 were blue and hot, with in vivo counts of 2705 and 10,436. Ex vivo counts were 4573 and 42,108 respectively. The third sentinel lymph node was hot but not blue and its ex vivo count was 9549. Counts were negligible. Of note the third sentinel lymph node was noted in a chunk of fibrofatty tissue which created some bleeding requiring cautery clip application to secure. Avitene was placed in the recesses of both wounds. A large Nahun drain was placed in the inframammary fold, and brought into the lumpectomy cavity. Is trimmed the appropriate length, secured to the skin with 2-0 Prolene suture. All wounds were closed with 2-0 Vicryl 3-0 Vicryl benzoin and Steri-Strips. Patient tolerated procedure well, extubated, taken recovery in stable condition.
--- NOTE | 2019-08-17 14:28 | EKG REPORT ---
SEVERITY:- NORMAL ECG - SINUS RHYTHM : Confirmed by: Emily Davis 17-Aug-2019 14:28:02
[2019-08-17] MEDS ORDERED: KETOROLAC TROMETHAMINE 10 MG TABLET ONE (15:19)
[2019-08-17 16:43] VITALS: BP 116/72
== END 2019-08-17 16:30 | disposition home or self-care (01) ==
LOC: OROUT 08:12
PROVIDERS: ATTEND Surgery
DX: C50.811 Malignant neoplasm of overlapping sites of right female breast (principal); Z17.0 Estrogen receptor positive status [ER+]; E11.9 Type 2 diabetes mellitus without complications; Z79.4 Long term (current) use of insulin; Z79.84 Long term (current) use of oral hypoglycemic drugs; Z88.8 Allergy status to other drugs, medicaments and biological substances; R06.02 Shortness of breath; E66.9 Obesity, unspecified; G25.81 Restless legs syndrome
CPT/HCPCS: 19307; 36415; 82962; 85025; 80048; 83036; 88305 ×2; 88307 ×2; 71046; 78195; 93005; 93010; 01610; 76098; A9520; J2250; J0690; J1100; J1885; J3010; J3490 ×6; J2405; J2704; Q9968; 1610

== ENCOUNTER 2019-08-30 22:11 | Emergency (ER) | payer MEDICAID ==
--- NOTE | 2019-08-30 22:29 | ER Document Report ---
ED Medical Screen (RME) - General Chief Complaint: Post Surgical Bleeding Stated Complaint: BREST BLEEDING Time Seen by Provider: 08/30/19 22:27 Primary Care Provider: ARNALDO LARA MD [Primary Care Provider] - Follow up as needed Notes: 54-year-old female with history of breast cancer presents for bleeding to her right breast. Patient had a lumpectomy done approximately 2 weeks ago this past Thursday and states she was feeling much better. Patient states she noticed today that there was some bleeding from her incision site and states it became worse after she took a shower. Patient states she also noticed a "lump" near the incision site. Approximately 1 to 2 cm open incision noted with minimal bleeding. Gauze dressing placed in triage. I have greeted and performed a rapid initial assessment of this patient. A comprehensive ED assessment and evaluation of the patient, analysis of test results and completion of the medical decision making process with be conducted by additional ED providers. TRAVEL OUTSIDE OF THE [place] IN LAST 30 DAYS: No - Related Data Allergies/Adverse Reactions: exenatide [From Byetta] Allergy (Intermediate, Verified 08/11/19 10:53) Nguyễn Past Medical History - Social History Family history: None - Past Medical History Cardiac Medical History: Reports: Hx Hypercholesterolemia, Hx Hypertension - NOT CURRENTLY ON MEDS Denies: Hx Coronary Artery Disease, Hx Heart Attack Pulmonary Medical History: Reports: Hx Asthma - MILD, Hx Pneumonia Denies: Hx Bronchitis, Hx COPD Neurological Medical History: Denies: Hx Cerebrovascular Accident, Hx Seizures Endocrine Medical History: Reports: Hx Diabetes Mellitus Type 2 Renal/ Medical History: Denies: Hx End Stage Renal Disease, Hx Kidney Stones, Hx Peritoneal Dialysis, Hx Renal Insufficiency GI Medical History: Reports: Hx Gastroesophageal Reflux Disease Musculoskeltal Medical History: Reports Hx Arthritis, Reports Hx Musculoskeletal Deformity, Reports Hx Musculoskeletal Trauma Skin Medical History: Reports Hx Psoriasis Psychiatric Medical History: Reports: Hx Depression Traumatic Medical History: Reports: Hx Fractures Past Surgical History: Reports: Hx Hysterectomy - Immunizations Immunizations up to date: Yes Hx Diphtheria, Pertussis, Tetanus Vaccination: Yes Physical Exam - Vital signs Vitals: Temp Pulse Resp BP Pulse Ox 98.4 F 89 20 148/65 H 93 08/30/19 22:23 08/30/19 22:23 08/30/19 22:23 08/30/19 22:23 08/30/19 22:23 Course - Vital Signs Vital signs: Temp Pulse Resp BP Pulse Ox 98.4 F 89 20 148/65 H 93 08/30/19 22:23 08/30/19 22:23 08/30/19 22:23 08/30/19 22:23 08/30/19 22:23 Doctor's Discharge - Discharge Referrals: ARNALDO LARA MD [Primary Care Provider] - Follow up as needed
[2019-08-30 23:14] LABS: ABSOLUTE EOSINOPHILS # (AUTO) 0.4 10^3/uL (0.0-0.6); ABSOLUTE LYMPHOCYTES (AUTO) 2.6 10^3/uL (0.5-4.7); ABSOLUTE MONOCYTES (AUTO) 1.1 10^3/uL (0.1-1.4); ABSOLUTE NEUT (AUTO) 6.5 10^3/uL (1.7-8.2); BASOPHILS % (AUTO) 0.4 % (0-2); EOSINOPHILS % (AUTO) 3.9 % (0-6); HEMATOCRIT 40.3 % (36.0-47.0); HEMOGLOBIN 13.5 g/dL (12.0-15.5); LYMPHOCYTES % (AUTO) 24.6 % (13-45); MEAN CORPUSCULAR HEMOGLOBIN 31.2 pg (27.0-33.4); MEAN CORPUSCULAR HGB CONC 33.5 g/dL (32.0-36.0); MEAN CORPUSCULAR VOLUME 93 fl (80-97); MONOCYTES % (AUTO) 10.6 % (3-13); PLATELET COUNT 329 10^3/uL (150-450); RED BLOOD COUNT 4.34 10^6/uL (3.72-5.28); RED CELL DISTRIBUTION WIDTH 14.7 % (11.5-14.0); SEGMENTED NEUTROPHILS % (AUTO) 60.5 % (42-78); TOTAL CELLS COUNTED % (AUTO) 100 %; WHITE BLOOD COUNT 10.7 10^3/uL (4.0-10.5)
[2019-08-30 23:16] LABS: INTERNATIONAL RATION (INR) 1.04; PROTHROMBIN TIME 13.6 SEC (11.4-15.4)
[2019-08-30 23:17] LABS: PARTIAL THROMBOPLASTIN TIME 27.6 SEC (23.5-35.8)
[2019-08-30 23:37] LABS: ALBUMIN 3.4 g/dL (3.5-5.0); ALKALINE PHOSPHATASE 101 U/L (38-126); ANION GAP 6 (5-19); ASPARTATE AMINO TRANSFERASE 21 U/L (14-36); BILIRUBIN,DIRECT 0.3 mg/dL (0.0-0.4); BILIRUBIN,TOTAL 0.5 mg/dL (0.2-1.3); BLOOD UREA NITROGEN 18 mg/dL (7-20); CALCIUM 8.3 mg/dL (8.4-10.2); CARBON DIOXIDE 31 mmol/L (22-30); CHLORIDE 98 mmol/L (98-107); POTASSIUM 4.9 mmol/L (3.6-5.0); TOTAL PROTEIN 6.9 g/dL (6.3-8.2)
[2019-08-30 23:49] LABS: GLUCOSE 420 mg/dL (75-110)
--- NOTE | 2019-08-31 06:33 | ER Document Report ---
ED General - General Chief Complaint: Post Surgical Bleeding Stated Complaint: BREST BLEEDING Time Seen by Provider: 08/30/19 22:27 Primary Care Provider: ARNALDO LARA MD [ACTIVE STAFF] - Follow up as needed TRAVEL OUTSIDE OF THE [place] IN LAST 30 DAYS: No - HPI Notes: Patient is a 54-year-old female, 2 weeks status post lumpectomy from the right breast, who presents to the emergency department for evaluation of the area bleeding. She states that she had some minimal bleeding yesterday. She states that it worsened after a shower. She has not mild increase in pain since the bleeding started, but it seems to have improved while waiting here in the emergency department. She denies any fevers or chills. No nausea or vomiting. No injury to the area. She states her operative course was unremarkable. She has a follow-up appointment with Dr. Jackson in 6 days. She is not on any blood thinners. Patient also states that she did not take her insulin last night. She was here waiting. She does not know how high her blood sugar runs normally, as she thinks she is having difficulties with her glucometer at home. - Related Data Allergies/Adverse Reactions: exenatide [From Byetta] Allergy (Intermediate, Verified 08/30/19 22:31) Hives Home Medications: List reviewed, please see notes Past Medical History - General Information source: Patient - Social History Smoking Status: Never Smoker Chew tobacco use (# tins/day): No Frequency of alcohol use: None Drug Abuse: None Family History: CAD Patient has suicidal ideation: No Patient has homicidal ideation: No - Past Medical History Cardiac Medical History: Reports: Hx Hypercholesterolemia, Hx Hypertension - NOT CURRENTLY ON MEDS Denies: Hx Coronary Artery Disease, Hx Heart Attack Pulmonary Medical History: Reports: Hx Asthma - MILD, Hx Pneumonia Denies: Hx Bronchitis, Hx COPD Neurological Medical History: Denies: Hx Cerebrovascular Accident, Hx Seizures Endocrine Medical History: Reports: Hx Diabetes Mellitus Type 2 Renal/ Medical History: Denies: Hx End Stage Renal Disease, Hx Kidney Stones, Hx Peritoneal Dialysis, Hx Renal Insufficiency GI Medical History: Reports: Hx Gastroesophageal Reflux Disease Musculoskeletal Medical History: Reports Hx Arthritis, Reports Hx Musculoskelet al Deformity, Reports Hx Musculoskeletal Trauma Skin Medical History: Reports Hx Psoriasis Psychiatric Medical History: Reports: Hx Depression Traumatic Medical History: Reports: Hx Fractures Past Surgical History: Reports: Hx Hysterectomy - Immunizations Immunizations up to date: Yes Hx Diphtheria, Pertussis, Tetanus Vaccination: Yes Hx Pneumococcal Vaccination: 07/20/10 Review of Systems - Review of Systems Hematologic/Lymphatic: See HPI -: Yes All other systems reviewed and negative Physical Exam - Vital signs Vitals: Temp Pulse Resp BP Pulse Ox 98.4 F 89 20 148/65 H 93 08/30/19 22:23 08/30/19 22:23 08/30/19 22:23 08/30/19 22:23 08/30/19 22:23 - Notes Notes: This is a 54-year-old female who appears older than her stated age, no acute distress. Head is normocephalic and atraumatic, pupils are equal round, reactive to light. Oral mucosa is moist. Heart regular rate and rhythm, lungs are clear auscultation bilaterally. Abdomen is obese, soft, nontender. Extremities show 2+ pitting edema with chronic appearing skin changes. No posterior calf tenderness. Examination of the right breast yields an approximately 6 cm well approximated laceration overlying the top of the Michelle, linear. There is no active bleeding. There is a bandage in place with some dried blood. There is ecchymosis surrounding the area. There is some mild calor, but no significant erythema. I do not appreciate any palpable mass at this time. With pressure, no blood is expelled. Course - Re-evaluation Re-evalutation: 08/31/19 06:32 Patient presents to the emergency department for evaluation. She was initially triaged, had blood work ordered. Her hemoglobin is normal. During the course of waiting here in the emergency department, the bleeding resolved. I do not see any further active bleeding. She may have a hematoma underlying, but I do not see any overt or active signs of infection or significant dehiscence of the wound. Her blood sugar was 420 on blood work. On Accu-Chek she was 397. Again she did not take her Lantus or Humalog last night. She takes her Lantus twice daily. I will give her a very low dose of subcutaneous insulin here. She is instructed to have a small snack before going to sleep, she plans to go back to bed this morning. She is to contact Dr. Jackson's office to notify him of the bleeding, and follow-up with him as soon as possible. She is to return to the ED with worsening or new concerning symptoms of any sort. - Vital Signs Vital signs: Temp Pulse Resp BP Pulse Ox 98.4 F 89 20 148/65 H 93 08/30/19 22:23 08/30/19 22:23 08/30/19 22:23 08/30/19 22:23 08/30/19 22:23 - Laboratory Result Diagrams: 08/30/19 22:59 08/30/19 22:59 Laboratory results interpreted by me: 08/30/19 08/30/19 22:59 22:59 WBC 10.7 H RDW 14.7 H Sodium 135.1 L Carbon Dioxide 31 H Glucose 420 H* Calcium 8.3 L Albumin 3.4 L Discharge - Discharge Clinical Impression: Postoperative bleeding from incision Hyperglycemia due to type 2 diabetes mellitus Qualifiers: Diabetes mellitus shelter insulin use: unspecified salvage determiner insulin use status Qualified Code(s): E11.65 - Type 2 diabetes mellitus with hyperglycemia Condition: Stable Disposition: HOME, SELF-CARE Instructions: Hyperglycemia (OM) Additional Instructions: If bleeding returns, please apply pressure and a bandage. If bleeding does not resolve with 30 minutes of steady pressure, please return immediately to the emergency department for evaluation. Follow-up with Dr. Jackson, let his office know that you were seen here in the emergency department for bleeding. Your blood sugar was elevated here today. You were given insulin. Please have a small snack before going back to sleep this morning. Take your regular Lantus and Humalog as prescribed. Return to the emergency department with worsening or new concerning symptoms of any sort. Referrals: ARNALDO LARA MD [ACTIVE STAFF] - Follow up as needed
[2019-08-31 06:36] VITALS: BP 129/59
[2019-08-31] MEDS ORDERED: INSULIN LISPRO 100 UNIT/ML 3 ML VIAL SUBCUT ONE (06:36)
== END 2019-08-31 06:50 | disposition home or self-care (01) ==
LOC: ER 22:11
DX: L76.22 Postprocedural hemorrhage of skin and subcutaneous tissue following other procedure (principal); Y83.8 Other surgical procedures as the cause of abnormal reaction of the patient, or of later complication, without mention of misadventure at the time of the procedure; E11.65 Type 2 diabetes mellitus with hyperglycemia; T38.3X6A Underdosing of insulin and oral hypoglycemic [antidiabetic] drugs, initial encounter; Z91.128 Patient's intentional underdosing of medication regimen for other reason; Z91.14 Patient's other noncompliance with medication regimen; Y92.238 Other place in hospital as the place of occurrence of the external cause; I10 Essential (primary) hypertension; J45.909 Unspecified asthma, uncomplicated; Z98.890 Other specified postprocedural states; Z79.4 Long term (current) use of insulin; Z88.8 Allergy status to other drugs, medicaments and biological substances
CPT/HCPCS: 99283; 36415; 82962; 85025; 85610; 85730; 80053; J1815

== ENCOUNTER 2019-09-03 17:29 | Emergency (ER) | payer MEDICAID ==
--- NOTE | 2019-09-03 17:41 | ER Document Report ---
ED Medical Screen (RME) - General Chief Complaint: Post Surgical Bleeding Stated Complaint: POST SURGICAL BLEEDING Time Seen by Provider: 09/03/19 17:34 Primary Care Provider: GRANT PIERRE MD [Primary Care Provider] - Follow up as needed Mode of Arrival: Ambulatory Information source: Patient Notes: 54-year-old female presented to ED for complications from a surgical site where they did a mastectomy to the right breast for breast cancer. The surgery was on August 17. 1 week after her surgery she developed a large knot on the wrist right breast. She stated about 4 days ago it started bleeding from the large knot. She states while she had her bra on it was just the little bit of bleeding on the bandage but when she bent over to take a shower then she would see drip drip drip of the blood. It is not bleeding at this time. She came to the ED about 2 days ago and it was bleeding at that time. She states they checked her blood and it was okay so they told her to put pressure on the site and she was discharged and she is to keep an appointment with Dr. Jackson on Thursday. She said she does not think it was red and inflamed at that time she is not sure. She states she has not had any fevers but sometimes it deshpande to the site. Patient is alert oriented respirations regular nonlabored speaking in full sentences we will get blood work at this time and have her seen by 1 of the providers. I have greeted and performed a rapid initial assessment of this patient. A comprehensive ED assessment and evaluation of the patient, analysis of test results and completion of medical decision making process will be conducted by an additional ED providers. TRAVEL OUTSIDE OF THE [place] IN LAST 30 DAYS: No - Related Data Allergies/Adverse Reactions: exenatide [From Byetta] Allergy (Intermediate, Verified 08/30/19 22:31) Hives Past Medical History - Social History Family history: None - Past Medical History Cardiac Medical History: Reports: Hx Hypercholesterolemia, Hx Hypertension - NOT CURRENTLY ON MEDS Denies: Hx Coronary Artery Disease, Hx Heart Attack Pulmonary Medical History: Reports: Hx Asthma - MILD, Hx Pneumonia Denies: Hx Bronchitis, Hx COPD Neurological Medical History: Denies: Hx Cerebrovascular Accident, Hx Seizures Endocrine Medical History: Reports: Hx Diabetes Mellitus Type 2 Renal/ Medical History: Denies: Hx End Stage Renal Disease, Hx Kidney Stones, Hx Peritoneal Dialysis, Hx Renal Insufficiency GI Medical History: Reports: Hx Gastroesophageal Reflux Disease Musculoskeltal Medical History: Reports Hx Arthritis, Reports Hx Musculoskeletal Deformity, Reports Hx Musculoskeletal Trauma Skin Medical History: Reports Hx Psoriasis Psychiatric Medical History: Reports: Hx Depression Traumatic Medical History: Reports: Hx Fractures Past Surgical History: Reports: Hx Hysterectomy - Immunizations Immunizations up to date: Yes Hx Diphtheria, Pertussis, Tetanus Vaccination: Yes Physical Exam - Vital signs Vitals: Temp Pulse Resp BP Pulse Ox 98 F 87 18 190/80 H 98 09/03/19 17:34 09/03/19 17:34 09/03/19 17:34 09/03/19 17:34 09/03/19 17:34 Course - Vital Signs Vital signs: Temp Pulse Resp BP Pulse Ox 98 F 87 18 190/80 H 98 09/03/19 17:34 09/03/19 17:34 09/03/19 17:34 09/03/19 17:34 09/03/19 17:34 Doctor's Discharge - Discharge Referrals: GRANT PIERRE MD [Primary Care Provider] - Follow up as needed
[2019-09-03 18:08] LABS: ABSOLUTE BASOPHILS # (AUTO) 0.1 10^3/uL (0.0-0.2); ABSOLUTE EOSINOPHILS # (AUTO) 0.4 10^3/uL (0.0-0.6); ABSOLUTE LYMPHOCYTES (AUTO) 2.1 10^3/uL (0.5-4.7); ABSOLUTE MONOCYTES (AUTO) 0.7 10^3/uL (0.1-1.4); ABSOLUTE NEUT (AUTO) 7.6 10^3/uL (1.7-8.2); BASOPHILS % (AUTO) 0.5 % (0-2); EOSINOPHILS % (AUTO) 3.4 % (0-6); HEMATOCRIT 42.1 % (36.0-47.0); HEMOGLOBIN 14.3 g/dL (12.0-15.5); LYMPHOCYTES % (AUTO) 19.7 % (13-45); MEAN CORPUSCULAR HEMOGLOBIN 31.2 pg (27.0-33.4); MEAN CORPUSCULAR VOLUME 92 fl (80-97); MONOCYTES % (AUTO) 6.5 % (3-13); PLATELET COUNT 372 10^3/uL (150-450); RED BLOOD COUNT 4.58 10^6/uL (3.72-5.28); RED CELL DISTRIBUTION WIDTH 14.6 % (11.5-14.0); SEGMENTED NEUTROPHILS % (AUTO) 69.9 % (42-78); TOTAL CELLS COUNTED % (AUTO) 100 %; WHITE BLOOD COUNT 10.9 10^3/uL (4.0-10.5)
[2019-09-03 18:26] LABS: ALBUMIN 3.6 g/dL (3.5-5.0); ALKALINE PHOSPHATASE 92 U/L (38-126); ANION GAP 8 (5-19); ASPARTATE AMINO TRANSFERASE 23 U/L (14-36); BILIRUBIN,DIRECT 0.3 mg/dL (0.0-0.4); BILIRUBIN,TOTAL 0.4 mg/dL (0.2-1.3); BLOOD UREA NITROGEN 16 mg/dL (7-20); CALCIUM 9.3 mg/dL (8.4-10.2); CARBON DIOXIDE 33 mmol/L (22-30); CHLORIDE 99 mmol/L (98-107); GLUCOSE 261 mg/dL (75-110); POTASSIUM 4.1 mmol/L (3.6-5.0); TOTAL PROTEIN 7.2 g/dL (6.3-8.2)
--- NOTE | 2019-09-03 19:44 | ER Document Report ---
ED General - General Mode of Arrival: Ambulatory TRAVEL OUTSIDE OF THE [place] IN LAST 30 DAYS: No <BRENNAN MURILLO - Last Filed: 09/03/19 21:37> <ENDY SIERRA - Last Filed: 09/03/19 21:46> - General Chief Complaint: Post Surgical Bleeding Stated Complaint: POST SURGICAL BLEEDING Time Seen by Provider: 09/03/19 17:34 Primary Care Provider: GRANT PIERRE MD [Primary Care Provider] - Follow up as needed Notes: Patient is a 54-year-old female who had a lumpectomy done on August 17 presents to the emergency department with bleeding from the surgical site. She was also seen here 4 days ago in the emergency department. At that time the bleeding was controlled and had stopped. Patient states that she ended up having a large amount of bleeding earlier today also. Patient states that the area is tender and red. She denies any fevers, body aches, or chills. (BRENNAN MURILLO) - Related Data Allergies/Adverse Reactions: exenatide [From Byetta] Allergy (Intermediate, Verified 09/03/19 17:36) Hives Past Medical History - General Information source: Patient - Social History Smoking Status: Never Smoker Chew tobacco use (# tins/day): No Frequency of alcohol use: None Drug Abuse: None Family History: CAD Patient has suicidal ideation: No Patient has homicidal ideation: No - Past Medical History Cardiac Medical History: Reports: Hx Hypercholesterolemia, Hx Hypertension - NOT CURRENTLY ON MEDS Denies: Hx Coronary Artery Disease, Hx Heart Attack Pulmonary Medical History: Reports: Hx Asthma - MILD, Hx Pneumonia Denies: Hx Bronchitis, Hx COPD Neurological Medical History: Denies: Hx Cerebrovascular Accident, Hx Seizures Endocrine Medical History: Reports: Hx Diabetes Mellitus Type 2 Renal/ Medical History: Denies: Hx End Stage Renal Disease, Hx Kidney Stones, Hx Peritoneal Dialysis, Hx Renal Insufficiency GI Medical History: Reports: Hx Gastroesophageal Reflux Disease Musculoskeletal Medical History: Reports Hx Arthritis, Reports Hx Musculoskeletal Deformity, Reports Hx Musculoskeletal Trauma Skin Medical History: Reports Hx Psoriasis Psychiatric Medical History: Reports: Hx Depression Traumatic Medical History: Reports: Hx Fractures Past Surgical History: Reports: Hx Cardiac Catheterization, Hx Hysterectomy - Immunizations Immunizations up to date: Yes Hx Diphtheria, Pertussis, Tetanus Vaccination: Yes Hx Pneumococcal Vaccination: 07/20/10 <BRENNAN MURILLO - Last Filed: 09/03/19 21:37> Review of Systems <BRENNAN MURILLO - Last Filed: 09/03/19 21:37> - Review of Systems Notes: REVIEW OF SYSTEMS: CONSTITUTIONAL : Denies recent illness. Denies recent unintentional weight loss. Denies fever, chills, or sweats. EENT: Denies eye, ear, throat, or mouth pain, discharge, or symptoms. Denies nasal or sinus congestion. CARDIOVASCULAR: Denies chest pain. RESPIRATORY: Denies shortness of breath, cough, congestion, difficulty breathing, or wheezing. GASTROINTESTINAL: Denies nausea, vomiting, and diarrhea. Denies abdominal pain. Denies constipation. GENITOURINARY: Denies difficulty urinating, burning, blood in urine, urgency or frequency. MUSCULOSKELETAL: Denies neck and back pain. Denies joint pain or swelling. SKIN: Denies rash, itchiness, or lesions HEMATOLOGIC : Denies easy bruising or bleeding. LYMPHATIC: Denies swollen, painful, enlarged glands. NEUROLOGICAL: Denies no numbness or tingling denies weakness. Denies headache. Denies altered mental status. Denies alteration in speech. PSYCHIATRIC: Denies stress, anxiety, alteration in sleep patterns, or depression. BREAST: See HPI. All other systems reviewed and negative. (BRENNAN MURILLO) Physical Exam <BRENNAN MURILLO - Last Filed: 09/03/19 21:37> - Vital signs Vitals: Temp Pulse Resp BP Pulse Ox 98 F 87 18 190/80 H 98 09/03/19 17:34 09/03/19 17:34 09/03/19 17:34 09/03/19 17:34 09/03/19 17:34 - Notes Notes: PHYSICAL EXAMINATION: GENERAL: Appears well, healthy, well-nourished, no acute distress. HEAD: Normocephalic, atraumatic. EYES: PERRL, conjunctiva normal, all extraocular movements intact, sclera nonicteric ENT: Moist mucous membranes. NECK: Supple, no noticeable swelling, redness, rash. Normal range of motion. LUNGS: Equal breath sounds bilaterally and clear to auscultation. No wheezes rales or rhonchi. CARDIOVASCULAR: S1-S2, regular rate, regular rhythm. Radial pulses 2+, normal. ABDOMEN: Normoactive bowel sounds. Soft, nontender, no guarding, no rebound tenderness, and no masses palpated. EXTREMITIES: Normal strength and range of motion, no pitting or edema. No cyanosis. NEUROLOGICAL: Moves all extremities upon command. Strength 5/5 in all extremities. PSYCH: Normal mood, normal affect. SKIN: Warm, dry. No rash, lesions, ulcerations noted. Normal skin turgor. BREAST: Tenderness, edema, and erythema noted to right breast near incision site. (BRENNAN MURILLO) Course - Laboratory Result Diagrams: 09/03/19 17:49 09/03/19 17:49 <BRENNAN MURILLO - Last Filed: 09/03/19 21:37> - Laboratory Result Diagrams: 09/03/19 17:49 09/03/19 17:49 <ENDY SIERRA - Last Filed: 09/03/19 21:46> - Re-evaluation Re-evalutation: 09/03/19 20:00 Hemoglobin is stable and actually better than her previous visit 4 days ago. There is a mild leukocytosis of 10,900. Chemistries are better with a glucose that is normalized to 261. Plan is to have the patient go to ultrasound. Bedside report given to SHANKAR Sparks. (BRENNAN MURILLO) 09/03/19 20:00 Report received on patient. I did evaluate the patient, some redness overlying the right breast. No active drainage or discharge at this time. Mild ind uration around the surgical site 09/03/19 21:[address] South, Surgery. Case was discussed, lab work and ultrasound were discussed. Patient has option to use warm compresses, keep appointment on Thursday for follow-up, afebrile. Patient's other option is to be admitted and have the area reopened and cleaned out. I discussed this at length with the patient. She prefers to go home at this time. Given the erythema around the wound site will place patient on a course of Keflex. Patient declines admission to the hospital for further intervention at this time she will return for fever or worsening swelling or redness (ENDY SIERRA) - Vital Signs Vital signs: Temp Pulse Resp BP Pulse Ox 98 F 87 18 190/80 H 98 09/03/19 17:34 09/03/19 17:34 09/03/19 17:34 09/03/19 17:34 09/03/19 17:34 - Laboratory Laboratory results interpreted by me: 09/03/19 09/03/19 17:49 17:49 WBC 10.9 H RDW 14.6 H Carbon Dioxide 33 H Glucose 261 H Discharge <CHIDIBRENNAN Bhaskar - Last Filed: 09/03/19 21:37> <ENDY SIERRA - Last Filed: 09/03/19 21:46> - Discharge Clinical Impression: Erythema of breast Post surgical complication Qualifiers: Surgical complication system/body Area: subcutaneous tissue Surgical complication type: hematoma Procedure type: dermatologic Qualified Code(s): L76.31 - Postprocedural hematoma of skin and subcutaneous tissue following a dermatologic procedure Condition: Stable Disposition: HOME, SELF-CARE Additional Instructions: Take the antibiotics as prescribed, warm compresses to the right breast as much as possible. Keep your appointment on Thursday with Dr. Jackson. Return to the emergency department for fever greater than 101 or worsening redness of the breast Prescriptions: Cephalexin Monohydrate [Keflex 500 mg Capsule] 500 mg PO Q6H 5 Days capsule Referrals: GRANT PIERRE MD [Primary Care Provider] - Follow up as needed
--- NOTE | 2019-09-03 21:16 | RADIOLOGY REPORT (SQ) ---
EXAM DESCRIPTION: US CHEST COMPLETED DATE/TME: 09/03/2019 19:19 CLINICAL HISTORY: 54 years, Female, eval right breast incision; tenderness/erythema. ? Pockets of fluid COMPARISON: None. TECHNIQUE: 31 static images. Parrish scale imaging LIMITATIONS: None. FINDINGS: Postsurgical changes identified. There does appear to be a heterogeneous fluid collection in the area of concern at approximately 12:00, not measured by the technologist. It is estimated at 2 x 3 cm IMPRESSION: Apparent fluid collection and approximately 12:00 of the right breast in the area of surgery. This is estimated 2 x 3 cm and is approximately 1 cm below the skin surface copyright 2011 [employer]- All Rights Reserved
[2019-09-03] MEDS ORDERED: CEPHALEXIN 500 MG CAPSULE PO ONE (21:44)
[2019-09-03 22:09] VITALS: BP 148/71
== END 2019-09-03 22:16 | disposition home or self-care (01) ==
LOC: ER 17:29
DX: L76.21 Postprocedural hemorrhage of skin and subcutaneous tissue following a dermatologic procedure (principal); Y83.8 Other surgical procedures as the cause of abnormal reaction of the patient, or of later complication, without mention of misadventure at the time of the procedure; L53.9 Erythematous condition, unspecified; D72.829 Elevated white blood cell count, unspecified; I10 Essential (primary) hypertension; J45.909 Unspecified asthma, uncomplicated; E11.9 Type 2 diabetes mellitus without complications; Z88.8 Allergy status to other drugs, medicaments and biological substances
CPT/HCPCS: 36415; 76604; 80053; 85025; 99283

== ENCOUNTER → 2019-10-11 | Outpatient (CLI) | payer MEDICAID ==
--- NOTE | 2019-10-11 17:06 | RADIOLOGY REPORT (SQ) ---
EXAM DESCRIPTION: VENOUS BILATERAL LOWER COMPLETED DATE/TIME: 10/11/2019 4:58 pm REASON FOR STUDY: SWELLING R22.43 LOCALIZED SWELLING, MASS AND LUMP, LOWER LIMB, BILATE COMPARISON: None. TECHNIQUE: Dynamic and static lewis scale and color images acquired of both lower extremity venous sy stems. Selected spectral images acquired with additional compression and augmentation maneuvers. Imag es stored on PACS. LIMITATIONS: None. FINDINGS: RIGHT LEG COMMON FEMORAL AND FEMORAL: Normal phasicity, compression and augmentation. No visualized echogenic m aterial on lewis scale. No defects on color images. POPLITEAL: Normal compression and augmentation. No visualized echogenic material on lewis scale. No de fects on color images. CALF VESSELS: Normal compression and augmentation. No visualized echogenic material on lewis scale. No defects on color image. GSV AND SSV: Normal compression. No visualized echogenic material on lewis scale. No defects on color images. ANY DEEP VENOUS INSUFFICIENCY: Not evaluated. ANY EVIDENCE OF POPLITEAL CYST: No. OTHER: No other significant finding. LEFT LEG COMMON FEMORAL AND FEMORAL: Normal phasicity, compression and augmentation. No visualized echogenic m aterial on lewis scale. No defects on color images. POPLITEAL: Normal compression and augmentation. No visualized echogenic material on lewis scale. No de fects on color images. CALF VESSELS: Normal compression and augmentation. No visualized echogenic material on lewis scale. No defects on color images. GSV AND SSV: Normal compression. No visualized echogenic material on lewis scale. No defects on color images. ANY DEEP VENOUS INSUFFICIENCY: Not evaluated. ANY EVIDENCE POPLITEAL CYST: No. OTHER: No other significant finding. IMPRESSION: NO EVIDENCE DVT OR SVT IN EITHER LEG. TECHNICAL DOCUMENTATION: JOB ID: [id number] 2010 [employer]- All Rights Reserved Reading location - IP/workstation name: [email or web address]
== END ==
LOC: SP 15:59
PROVIDERS: ATTEND Internal Medicine
DX: R22.43 Localized swelling, mass and lump, lower limb, bilateral (principal)
CPT/HCPCS: 93970

== ENCOUNTER → 2019-11-15 | Outpatient (CLI) | payer MEDICAID ==
--- NOTE | 2019-11-16 09:06 | WOMENS IMAGING REPORT ---
EXAM DESCRIPTION: U/S BREAST UNILAT LIMITED IMAGES COMPLETED DATE/TIME: 11/15/2019 10:37 am REASON FOR STUDY: R22.9 BREAST U/S LIMITED C50.211 MALIG NEOPLM OF UPPER-INNER QUADRANT OF RIGHT FE MALE COMPARISON: None. TECHNIQUE: Real-time and static grayscale imaging performed of the right breast targeted to the area of clinical/mammographic concern. Selected color Doppler images recorded. LIMITATIONS: None. FINDINGS: Area in question in the right axilla demonstrates 2 superficial hypoechoic nodules, the la rgest 7 x 4 x 7 mm. No posterior shadowing. IMPRESSION: Probable benign lymph nodes. BIRAD: 3 Probably benign finding. Initial short-interval follow-up suggested. RECOMMENDATION: RECOMMENDED FOLLOW-UP: Six-month ultrasound follow-up. COMMENT: The [employer] (ACR) has developed recommendations for screening MRI of the breasts in certain patient populations, to be used in conjunction with mammography. Breast MRI s urveillance may be appropriate for women with more than 20% lifetime risk of developing breast cancer as determined by genetic testing, significant family history of the disease, or history of mantle r adiation for Hodgkins Disease. ACR Practice Guidelines 2008. TECHNICAL DOCUMENTATION: JOB ID: [id number] 2010 [employer]- All Rights Reserved Reading location - IP/workstation name: [email or web address]
== END ==
LOC: WI 10:05
PROVIDERS: ATTEND Radiology Radiation Oncology
DX: C50.211 Malignant neoplasm of upper-inner quadrant of right female breast (principal); R22.9 Localized swelling, mass and lump, unspecified
CPT/HCPCS: 76642

== ENCOUNTER 2019-11-29 17:19 | Inpatient (IN) | payer MEDICAID ==
--- NOTE | 2019-11-29 18:05 | ER Document Report ---
ED Medical Screen (RME) - General Chief Complaint: Abscess Stated Complaint: ABSCESS Time Seen by Provider: 11/29/19 18:01 Primary Care Provider: VINCE DE LA PAZ MD [Primary Care Provider] - Follow up as needed Mode of Arrival: Ambulatory Information source: Patient Notes: 54-year-old female with history of breast cancer currently receiving radiation presents with abscess about the size of a baseball to her left inner thigh near her groin. She reports increased pain with movement difficulty sitting down. Denies history of MRSA. Denies fever vomiting diarrhea. Last radiation treatment was Thursday. I have greeted and performed a rapid initial assessment of this patient. A comprehensive ED assessment and evaluation of the patient, analysis of test resu lts and completion of the medical decision making process will be conducted by additional ED providers. TRAVEL OUTSIDE OF THE [place] IN LAST 30 DAYS: No - Related Data Allergies/Adverse Reactions: exenatide [From Byetta] Allergy (Intermediate, Verified 09/03/19 17:36) Hives Past Medical History - Social History Family history: None - Past Medical History Cardiac Medical History: Reports: Hx Hypercholesterolemia, Hx Hypertension - NOT CURRENTLY ON MEDS Denies: Hx Coronary Artery Disease, Hx Heart Attack Pulmonary Medical History: Reports: Hx Asthma - MILD, Hx Pneumonia Denies: Hx Bronchitis, Hx COPD Neurological Medical History: Denies: Hx Cerebrovascular Accident, Hx Seizures Endocrine Medical History: Reports: Hx Diabetes Mellitus Type 2 Renal/ Medical History: Denies: Hx End Stage Renal Disease, Hx Kidney Stones, Hx Peritoneal Dialysis, Hx Renal Insufficiency GI Medical History: Reports: Hx Gastroesophageal Reflux Disease Musculoskeltal Medical History: Reports Hx Arthritis, Reports Hx Musculoskeletal Deformity, Reports Hx Musculoskeletal Trauma Skin Medical History: Reports Hx Psoriasis Psychiatric Medical History: Reports: Hx Depression Traumatic Medical History: Reports: Hx Fractures Past Surgical History: Reports: Hx Cardiac Catheterization, Hx Hysterectomy - Immunizations Immunizations up to date: Yes Hx Diphtheria, Pertussis, Tetanus Vaccination: Yes Physical Exam - Vital signs Vitals: Temp Pulse Resp BP Pulse Ox 98.5 F 108 H 18 144/66 H 94 11/29/19 17:20 11/29/19 17:20 11/29/19 17:20 11/29/19 17:20 11/29/19 17:20 Course - Vital Signs Vital signs: Temp Pulse Resp BP Pulse Ox 98.5 F 108 H 18 144/66 H 94 11/29/19 17:20 11/29/19 17:20 11/29/19 17:20 11/29/19 17:20 11/29/19 17:20 Doctor's Discharge - Discharge Referrals: VINCE DE LA PAZ MD [Primary Care Provider] - Follow up as needed
[2019-11-29] MEDS ORDERED: NORMAL SALINE 1000 ML 1,000 ML IV ONE ×3 (19:23→21:11)
[2019-11-29 19:52] LABS: ABSOLUTE BASOPHILS # (AUTO) 0.1 10^3/uL (0.0-0.2); ABSOLUTE EOSINOPHILS # (AUTO) 0.2 10^3/uL (0.0-0.6); ABSOLUTE LYMPHOCYTES (AUTO) 0.9 10^3/uL (0.5-4.7); ABSOLUTE MONOCYTES (AUTO) 1.7 10^3/uL (0.1-1.4); ABSOLUTE NEUT (AUTO) 14.6 10^3/uL (1.7-8.2); BASOPHILS % (AUTO) 0.4 % (0-2); EOSINOPHILS % (AUTO) 0.9 % (0-6); HEMATOCRIT 42.5 % (36.0-47.0); HEMOGLOBIN 14.7 g/dL (12.0-15.5); LYMPHOCYTES % (AUTO) 5.3 % (13-45); MEAN CORPUSCULAR HEMOGLOBIN 32.3 pg (27.0-33.4); MEAN CORPUSCULAR HGB CONC 34.5 g/dL (32.0-36.0); MEAN CORPUSCULAR VOLUME 94 fl (80-97); MONOCYTES % (AUTO) 9.8 % (3-13); PLATELET COUNT 277 10^3/uL (150-450); RED BLOOD COUNT 4.54 10^6/uL (3.72-5.28); RED CELL DISTRIBUTION WIDTH 14.8 % (11.5-14.0); SEGMENTED NEUTROPHILS % (AUTO) 83.6 % (42-78); TOTAL CELLS COUNTED % (AUTO) 100 %; VENOUS BLOOD BASE EXCESS 3.3 mmol/L; VENOUS BLOOD HCO3 30.3 mmol/L (20-32); VENOUS BLOOD PCO2 55.2 mmHg (35-63); VENOUS BLOOD PH 7.36 (7.30-7.42); WHITE BLOOD COUNT 17.5 10^3/uL (4.0-10.5)
[2019-11-29 20:04] LABS: ALBUMIN 3.5 g/dL (3.5-5.0); ALKALINE PHOSPHATASE 124 U/L (38-126); ANION GAP 8 (5-19); ASPARTATE AMINO TRANSFERASE 19 U/L (14-36); BILIRUBIN,DIRECT 0.1 mg/dL (0.0-0.4); BILIRUBIN,TOTAL 1.1 mg/dL (0.2-1.3); BLOOD UREA NITROGEN 16 mg/dL (7-20); CALCIUM 8.4 mg/dL (8.4-10.2); CARBON DIOXIDE 30 mmol/L (22-30); CHLORIDE 92 mmol/L (98-107); POTASSIUM 4.6 mmol/L (3.6-5.0)
[2019-11-29 20:15] LABS: GLUCOSE 566 mg/dL (75-110)
[2019-11-29] MEDS ORDERED: INSULIN REG, HUMAN 100 UNIT/ML 3 ML VIAL (PYX) IV ONE ×2 (20:29→21:59)
[2019-11-29] MEDS ORDERED: CEFAZOLIN 2 GM/D5W RTU 2 GM/50 ML RTUPB IV ONE (20:29)
--- NOTE | 2019-11-29 20:34 | ER Document Report ---
ED General - General Chief Complaint: Abscess Stated Complaint: ABSCESS Time Seen by Provider: 11/29/19 18:01 Primary Care Provider: VINCE DE LA PAZ MD [RYAN VELÁZQUEZ] - Follow up as needed Mode of Arrival: Ambulatory Information source: Patient TRAVEL OUTSIDE OF THE [place] IN LAST 30 DAYS: No - HPI Notes: Patient presents with left thigh pain. This pain is been constant for several days. It is moderate to severe in intensity. Is worse with movement and better with rest. It does radiate up the left leg. She also states that she has been out of her NovoLog insulin for 2 to 3 days. And feels that her blood sugar may be high. No fevers or vomiting. - Related Data Allergies/Adverse Reactions: exenatide [From Byetta] Allergy (Intermediate, Verified 09/03/19 17:36) Hives Home Medications: lantus, invokamet, novalog, restless leg syndrome Past Medical History - General Information source: Patient - Social History Smoking Status: Never Smoker Frequency of alcohol use: None Drug Abuse: None Family History: CAD Patient has homicidal ideation: No - Past Medical History Cardiac Medical History: Reports: Hx Hypercholesterolemia, Hx Hypertension - NOT CURRENTLY ON MEDS Denies: Hx Coronary Artery Disease, Hx Heart Attack Pulmonary Medical History: Reports: Hx Asthma - MILD, Hx Pneumonia Denies: Hx Bronchitis, Hx COPD Neurological Medical History: Denies: Hx Cerebrovascular Accident, Hx Seizures Endocrine Medical History: Reports: Hx Diabetes Mellitus Type 2 Renal/ Medical History: Denies: Hx End Stage Renal Disease, Hx Kidney Stones, Hx Peritoneal Dialysis, Hx Renal Insufficiency GI Medical History: Reports: Hx Gastroesophageal Reflux Disease Musculoskeletal Medical History: Reports Hx Arthritis, Reports Hx Musculoskeletal Deformity, Reports Hx Musculoskeletal Trauma Skin Medical History: Reports Hx Psoriasis Psychiatric Medical History: Reports: Hx Depression Traumatic Medical History: Reports: Hx Fractures Past Surgical History: Reports: Hx Cardiac Catheterization, Hx Hysterectomy - Immunizations Immunizations up to date: Yes Hx Diphtheria, Pertussis, Tetanus Vaccination: Yes Hx Pneumococcal Vaccination: 07/20/10 Review of Systems - Review of Systems Constitutional: denies: Chills, Fever Cardiovascular: denies: Chest pain, Palpitations Respiratory: denies: Cough, Short of breath -: Yes All other systems reviewed and negative Physical Exam - Vital signs Vitals: Temp Pulse Resp BP Pulse Ox 98.5 F 108 H 18 144/66 H 94 11/29/19 17:20 11/29/19 17:20 11/29/19 17:20 11/29/19 17:20 11/29/19 17:20 Interpretation: Tachycardic - General General appearance: Appears well, Alert - HEENT Head: Normocephalic, Atraumatic Eyes: Normal Pupils: PERRL - Respiratory Respiratory status: No respiratory distress Chest status: Nontender Breath sounds: Normal Chest palpation: Normal - Cardiovascular Rhythm: Tachycardia Heart sounds: Normal auscultation Murmur: No - Abdominal Inspection: Normal Distension: No distension Bowel sounds: Normal Tenderness: Nontender Organomegaly: No organomegaly - Back Back: Normal, Nontender - Extremities General upper extremity: Normal inspection, Nontender, Normal color, Normal ROM, Normal temperature General lower extremity: Other - Left thigh has a large erythematous indurated tender area on the medial aspect consistent with an abscess. No: Tri's sign - Neurological Neuro grossly intact: Yes Cognition: Normal Orientation: AAOx4 [place] Coma Scale Eye Opening: Spontaneous [place] Coma Scale Verbal: Oriented [place] Coma Scale Motor: Obeys Commands [place] Coma Scale Total: 15 Speech: Normal Motor strength normal: LUE, RUE, LLE, RLE Sensory: Normal - Psychological Associated symptoms: Normal affect, Normal mood - Skin Skin Temperature: Warm Skin Moisture: Dry Skin Color: Other - Skin exam is unremarkable other than the area of abscess as above Course - Re-evaluation Re-evalutation: 11/29/19 22:21 At 10 PM I turned the patient over to Dr. Lopez. She will follow-up on the CT scan. If the patient appears to have an abscess that is amenable to I&D in the emergency department this will be performed and patient will most likely be able to be discharged once her glucoses come down further. If the CT shows something that we will require surgical intervention and Dr. Andino paged surgery. - Vital Signs Vital signs: Temp Pulse Resp BP Pulse Ox 98.5 F 108 H 18 144/66 H 94 11/29/19 18:04 11/29/19 17:20 11/29/19 17:20 11/29/19 17:20 11/29/19 17:20 - Laboratory Result Diagrams: 11/29/19 19:40 11/29/19 19:40 Laboratory results interpreted by me: 11/29/19 11/29/19 11/29/19 19:40 19:40 21:07 WBC 17.5 H RDW 14.8 H Lymph % (Auto) 5.3 L Absolute Neuts (auto) 14.6 H Absolute Monos (auto) 1.7 H Seg Neutrophils % 83.6 H Sodium 129.7 L Chloride 92 L Glucose 566 H* Urine Protein 100 H Urine Glucose (UA) 1000 H Urine Blood MODERATE H Discharge - Discharge Clinical Impression: Abscess of left thigh, Hyperglycemia Condition: Stable Disposition: OTHER Referrals: VINCE DE LA PAZ MD [[facility]] - Follow up as needed
[2019-11-29 21:38] LABS: APPEARANCE,URINE SLIGHTLY-CLOUDY; BILIRUBIN,URINE NEGATIVE (NEGATIVE); COLOR,URINE STRAW; GLUCOSE, URINE 1000 mg/dL (NEGATIVE); KETONES,URINE NEGATIVE (NEGATIVE); LEUKOCYTE ESTERASE,URINE NEGATIVE (NEGATIVE); NITRITE,URINE NEGATIVE (NEGATIVE); PROTEIN,URINE 100 mg/dL (NEGATIVE); URINE SPECIFIC GRAVITY 1.031; UROBILINOGEN,URINE NEGATIVE mg/dL (<2.0)
[2019-11-29 21:39] LABS: ADD MANUAL MICROSCOPIC YES; YEAST,URINE PRESENT
[2019-11-29] MEDS ORDERED: CEFAZOLIN INJ 1 GM VIAL IV ONE (22:13)
--- NOTE | 2019-11-29 22:15 | RADIOLOGY REPORT (SQ) ---
EXAM DESCRIPTION: CT LOWER EXTREMITY WITH IV CONTRAST COMPLETED DATE/TME: 11/29/2019 20:30 CLINICAL HISTORY: 54 years, Female, pain/swelling/redness/eval abscess COMPARISON: None. TECHNIQUE: [id number] Images stored on PACS. All CT scanners at this facility use dose modulation, iterative reconstruction, and/or weight based dosing when appropriate to reduce radiation dose to as low as reasonably achievable (ALARA). [facility]: Dose Right [facility]: CareDose [facility]: Dose Right [facility]: Teradose 4D [facility]: [employer] LIMITATIONS: None. FINDINGS: There are subcutaneous inflammatory changes in the medial left thigh with subcutaneous gas. No well-defined fluid collection or abscess. No sinus tract formation or acute osseous abnormality. There is adjacent skin thickening. The underlying myofascial planes are preserved. There are several, likely reactive adjacent lymph nodes in the left inguinal region. IMPRESSION: Subcutaneous inflammatory changes and skin thickening of the medial left thigh consistent with cellulitis. Underlying soft tissue gas without a discrete/defined abscess. Gas-forming organism is considered. TECHNICAL DOCUMENTATION: Quality ID # 436: Final reports with documentation of one or more dose reduction techniques (e.g., Automated exposure control, adjustment of the mA and/or kV according to patient size, use of iterative reconstruction technique) copyright 2011 [employer]- All Rights Reserved
[2019-11-29] MEDS ORDERED: VANCOMYCIN HCL INJ 1000 MG VIAL IV ONE (22:47)
[2019-11-29] MEDS ORDERED: CLINDAMYCIN 600 MG/D5W RTU 600 MG/50 ML RTUPB IV ONE (22:48)
[2019-11-29] MEDS ORDERED: CIPROFLOXACIN 400 MG/D5W RTU 400 MG/200 ML RTUPB IV SCH (23:00)
[2019-11-29] MEDS ORDERED: MORPHINE SULFATE 10 MG/ML INJ IV ONE (23:24)
--- NOTE | 2019-11-29 23:24 | ER Document Report ---
Doctor's Note Notes: 11/29/19 23:21 Patient turned over to me pending CT for diabetic with thigh infection. CT shows subcutaneous infection with gas producing organism. Surgery consulted, discussed case with Dr. South who says that he will come evaluate patient for possible emergent surgical intervention. Discussed case with patient's primary Dr. Gallegos who says he will accept patient to his service. I examined patient, patient's symptoms have presented over course of 5 days, not visibly involving groin but close proximity, instructed patient not to eat or drink until evaluated by surgery, and ordered antibiotics to cover for possible necrotizing fasciitis.
[2019-11-29] MEDS ORDERED: INSULIN LISPRO 100 UNIT/ML 3 ML VIAL SUBCUT ONE (23:28)
[2019-11-30] MEDS ORDERED: DEXTROSE 50%-WATER 25 GM/50 ML DISP.SYRIN IV PRN ×4 (00:29→01:20)
[2019-11-30] MEDS ORDERED: GLUCAGON,HUMAN RECOMB 1 MG INJ SUBCUT PRN (00:29)
[2019-11-30] MEDS ORDERED: DEXTROSE 40% GEL 15 GM TUBE PO PRN ×4 (00:29→01:20)
[2019-11-30] MEDS ORDERED: ACETAMINOPHEN 1,000 MG/100 ML RTUPB IV ONE (00:57)
[2019-11-30] MEDS ORDERED: VANCOMYCIN HCL 0 MG in DEXTROSE 5%-WATER 250 ML IV NR ×2 (01:15→01:30)
[2019-11-30] MEDS ORDERED: GLUCAGON,HUMAN RECOMB 1 MG INJ IM PRN (01:20)
[2019-11-30] MEDS ORDERED: VANCOMYCIN HCL INJ 1000 MG VIAL ONE (01:24)
[2019-11-30] MEDS ORDERED: PIPERACILLIN SODIUM/TAZOBACTAM 3.375 GM in NORMAL SALINE 100 ML IV SCH ×2 (01:30→06:00)
[2019-11-30] MEDS ORDERED: PIPERACILLIN SODIUM/TAZOBACTAM 3.375 GM in NORMAL SALINE 100 ML IV ONE (01:30)
[2019-11-30 02:13] LABS: INTERNATIONAL RATION (INR) 1.19; PROTHROMBIN TIME 15.2 SEC (11.4-15.4)
[2019-11-30 02:14] LABS: PARTIAL THROMBOPLASTIN TIME 33.2 SEC (23.5-35.8)
[2019-11-30] MEDS ORDERED: VANCOMYCIN HCL INJ 1000 MG VIAL IV ONE ×2 (02:30→03:30)
[2019-11-30 02:35] LABS: ANION GAP 7 (5-19); BLOOD UREA NITROGEN 14 mg/dL (7-20); CALCIUM 7.5 mg/dL (8.4-10.2); CARBON DIOXIDE 25 mmol/L (22-30); CHLORIDE 100 mmol/L (98-107); CREATINE KINASE 115 U/L (30-135); GLUCOSE 341 mg/dL (75-110); POTASSIUM 3.7 mmol/L (3.6-5.0)
[2019-11-30 02:36] LABS: PHOSPHORUS 1.8 mg/dL (2.5-4.5)
[2019-11-30 02:37] LABS: AMYLASE < 30 U/L (30-110)
[2019-11-30] MEDS ORDERED: INSULIN REG, HUMAN 100 UNIT/ML 3 ML VIAL (PYX) ONE (02:41)
[2019-11-30] MEDS ORDERED: CLINDAMYCIN 600 MG/D5W RTU 600 MG/50 ML RTUPB IV ONE (02:45)
[2019-11-30 02:49] LABS: CREATINE KINASE MB 1.01 ng/mL (<4.55)
[2019-11-30] MEDS: NORMAL SALINE 100 ML with INSULIN REGULAR, HUMAN 100 UNIT IV PRN ×4 (02:49→14:53)
[2019-11-30 02:50] LABS: FREE T4 (FREE THYROXINE) 1.12 ng/dL (0.78-2.19)
[2019-11-30 02:53] LABS: TROPONIN I < 0.012 ng/mL
[2019-11-30 03:04] LABS: THYROID STIMULATING HORMONE 2.77 uIU/mL (0.47-4.68)
[2019-11-30 03:05] LABS: C-REACTIVE PROTEIN 297.7 mg/L (<10.0)
[2019-11-30] MEDS: ENOXAPARIN SODIUM INJ 40 MG/0.4 ML DISP.SYRIN SUBCUT SCH ×2 (03:26→12:06)
[2019-11-30] MEDS ORDERED: PIPERACILLIN/TAZOBACTAM 3.375 GM VIAL IV ONE (03:55)
[2019-11-30 05:08] LABS: ARTERIAL BLOOD BASE EXCESS -3.9 mmol/L; ARTERIAL BLOOD H2CO3 1.16 mmol/L (1.05-1.35); ARTERIAL BLOOD HCO3 21.2 mmol/L (20-24); ARTERIAL BLOOD O2 SATURATION 91.3 % (94-98); ARTERIAL BLOOD PCO2 38.7 mmHg (35-45); ARTERIAL BLOOD PH 7.36 (7.35-7.45); ARTERIAL BLOOD PO2 62.9 mmHg (80-100); ARTERIAL BLOOD TOTAL CO2 22.4 mmol/L (21-25)
[2019-11-30 05:10] LABS: ARTERIAL BLOOD FIO2 21%
[2019-11-30 05:21] LABS: URINE AMPHETAMINES SCREEN NEGATIVE; URINE BARBITURATES SCREEN NEGATIVE; URINE BENZODIAZEPINES SCREEN NEGATIVE; URINE COCAINE SCREEN NEGATIVE; URINE MARIJUANA (THC) SCREEN NEGATIVE; URINE METHADONE SCREEN NEGATIVE; URINE PHENCYCLIDINE SCREEN NEGATIVE
[2019-11-30] MEDS: PIPERACILLIN SODIUM/TAZOBACTAM 3.375 GM in NORMAL SALINE 100 ML IV SCH ×4 (06:20→23:40)
[2019-11-30 06:45] LABS: ANION GAP 6 (5-19); BLOOD UREA NITROGEN 14 mg/dL (7-20); CARBON DIOXIDE 29 mmol/L (22-30); CHLORIDE 99 mmol/L (98-107); GLUCOSE 344 mg/dL (75-110); POTASSIUM 3.5 mmol/L (3.6-5.0)
[2019-11-30 08:37] LABS: CREATINE KINASE MB 1.26 ng/mL (<4.55)
[2019-11-30 08:40] LABS: TROPONIN I < 0.012 ng/mL
--- NOTE | 2019-11-30 08:58 | PDOC H&P ---
History of Present Illness Admission Date/PCP: 11/29/19 23:58 GRANT PIERRE MD Patient complains of: leg pain, swelling History of Present Illness: NATALIIA SALINAS is a 54 year old female seen in consultation at the request of the emergency department. The patient has a one-week history of increasing pain and swelling in the left inner thigh. She reports that it started as a small bump, and is grown significantly. It continues to worsen. She has subjective fevers and chills. She is a diabetic, but does not take her diabetic medications. She denies any foul-smelling drainage at this time. Her pain is 5 out of 10. It does not radiate. Pain medications make it better, movement and palpation make it worse. She denies headache, shortness of breath, chest pain, nausea, vomiting, melena, hematochezia, hematemesis, orthostasis, dizziness, blurry vision. Past Medical History Cardiac Medical History: Reports: Hyperlipidema, Hypertension - NOT CURRENTLY ON MEDS Denies: Coronary Artery Disease, Myocardial Infarction Pulmonary Medical History: Reports: Asthma - MILD, Pneumonia Denies: Bronchitis, Chronic Obstructive Pulmonary Disease (COPD) Neurological Medical History: Denies: Seizures Endocrine Medical History: Reports: Diabetes Mellitus Type 2 Renal/ Medical History: Denies: End Stage Renal Disease GI Medical History: Reports: Gastroesophageal Reflux Disease Musculoskeltal Medical History: Reports: Arthritis Skin Medical History: Reports: Psoriasis Psychiatric Medical History: Reports: Depression Hematology: Denies: Anemia Past Surgical History Past Surgical History: Reports: Cardiac Catheterization, Hysterectomy Social History Smoking Status: Never Smoker Frequency of Alcohol Use: None Hx Recreational Drug Use: Yes Drugs: Cocaine Hx Prescription Drug Abuse: No Family History Family History: CAD Parental Family History Reviewed: Yes Children Family History Reviewed: Yes Sibling(s) Family History Reviewed.: Yes Medication/Allergy Home Medications: Canagliflozin/Metformin HCl [Invokamet 150-1,000 mg Tablet] 1 tab PO BID 04/12/17 Insulin Aspart [Novolog Flexpen] 23 units SUBCUT MEALS 04/12/17 Insulin Glargine,Hum.rec.anlog [Lantus Solostar] 90 units SUBCUT Q12 04/12/17 Oxycodone HCl/Acetaminophen [Percocet 5-325 mg Tablet] 1 tab PO Q8HP PRN 04/12/17 Albuterol Sulfate [Proair HFA Inhalation Aerosol 8.5 gm MDI] 2 puff IH Q4H PRN #1 mdi 04/18/19 Fluticasone Propionate [Flonase Nasal Woody 50 Mcg/Woody 16 gm] 1 spray NASL Q12 PRN 08/11/19 Folic Acid 1 mg PO DAILY 08/11/19 Gabapentin [Neurontin 300 mg Capsule] 300 mg PO Q8 08/11/19 Methotrexate Sodium [Rheumatrex 2.5 mg Tablet] 2.5 mg PO 08/11/19 Montelukast Sodium [Singulair] 10 mg PO HSP PRN 08/11/19 Omeprazole 20 mg PO DAILY 08/11/19 Pioglitazone HCl [Actos 15 mg Tablet] 1 tab PO HSP PRN 08/11/19 Pramipexole Di-HCl [Pramipexole Dihydrochloride] 0.125 mg PO DAILY 08/11/19 Azithromycin [Zithromax Tri-Juan] 500 mg PO DAILY 08/17/19 Cephalexin Monohydrate [Keflex 500 mg Capsule] 500 mg PO Q6H 5 Days capsule 09/03/19 Allergies/Adverse Reactions: exenatide [From Byetta] Allergy (Intermediate, Verified 09/03/19 17:36) Hives Review of Systems Constitutional: PRESENT: chills, fever(s). ABSENT: anorexia, fatigue, headache(s), weakness Eyes: ABSENT: visual disturbances Ears: ABSENT: hearing changes Nose, Mouth, and Throat: ABSENT: sore throat Cardiovascular: ABSENT: chest pain Respiratory: ABSENT: cough, dyspnea Gastrointestinal: ABSENT: abdominal pain, bloating, hematemesis, hematochezia, melena, nausea, vomiting Genitourinary: ABSENT: dysuria Musculoskeletal: ABSENT: back pain Integumentary: PRESENT: lesions - Left thigh Neurological: ABSENT: confusion, convulsions, dizziness Psychiatric: ABSENT: anxiety, depression Endocrine: ABSENT: cold intolerance, heat intolerance Physical Exam Vital Signs: Temp Pulse Resp BP Pulse Ox 101.2 F H 108 H 20 132/70 H 92 11/30/19 00:12 11/29/19 17:20 11/30/19 00:12 11/30/19 00:12 11/30/19 00:12 Intake & Output 11/28/19 11/29/19 11/30/19 06:59 06:59 06:59 Intake Total 1000 Balance 1000 Weight 130.1 kg General appearance: PRESENT: cooperative, morbidly obese. ABSENT: no acute distress Head exam: PRESENT: atraumatic, normocephalic Eye exam: PRESENT: EOMI, PERRLA. ABSENT: scleral icterus Mouth exam: PRESENT: moist, neck supple Neck exam: ABSENT: meningismus, tenderness, thyromegaly, tracheal deviation Respiratory exam: PRESENT: unlabored. ABSENT: chest wall tenderness, tachypnea, wheezes Cardiovascular exam: PRESENT: tachycardia Pulses: PRESENT: normal radial pulses Vascular exam: ABSENT: pallor GI/Abdominal exam: PRESENT: soft. ABSENT: distended, rigid, tenderness Rectal exam: PRESENT: deferred Extremities exam: PRESENT: other. ABSENT: clubbing Musculoskeletal exam: ABSENT: deformity Neurological exam: PRESENT: alert, awake, oriented to person, oriented to place, oriented to time, oriented to situation Psychiatric exam: ABSENT: agitated, anxious, depressed Focused psych exam: ABSENT: delusional Skin exam: PRESENT: erythema, other - Large 6 to 8 cm abscess on the left inner thigh.. ABSENT: jaundice Results Laboratory Results: 11/29/19 19:40 11/29/19 19:40 11/29/19 11/29/19 11/29/19 19:40 19:40 19:40 WBC 17.5 H RBC 4.54 Hgb 14.7 Hct 42.5 MCV 94 MCH 32.3 MCHC 34.5 RDW 14.8 H Plt Count 277 Seg Neutrophils % 83.6 H VBG pH 7.36 VBG pCO2 55.2 VBG HCO3 30.3 VBG Base Excess 3.3 Sodium 129.7 L Potassium 4.6 Chloride 92 L Carbon Dioxide 30 Anion Gap 8 BUN 16 Creatinine 0.72 Est GFR ( Amer) > 60 Glucose 566 H* Calcium 8.4 Total Bilirubin 1.1 AST 19 Alkaline Phosphatase 124 Total Protein 7.0 Albumin 3.5 Urine Color Urine Appearance Urine pH Ur Specific Cameron Urine Protein Urine Glucose (UA) Urine Ketones Urine Blood Urine Nitrite Ur Leukocyte Esterase Ur Squamous Epith Cells 11/29/19 21:07 WBC RBC Hgb Hct MCV MCH MCHC RDW Plt Count Seg Neutrophils % VBG pH VBG pCO2 VBG HCO3 VBG Base Excess Sodium Potassium Chloride Carbon Dioxide Anion Gap BUN Creatinine Est GFR ( Amer) Glucose Calcium Total Bilirubin AST Alkaline Phosphatase Total Protein Albumin Urine Color STRAW Urine Appearance SLIGHTLY-CLOUDY Urine pH 5.0 Ur Specific Cameron 1.031 Urine Protein 100 H Urine Glucose (UA) 1000 H Urine Ketones NEGATIVE Urine Blood MODERATE H Urine Nitrite NEGATIVE Ur Leukocyte Esterase NEGATIVE Ur Squamous Epith Cells MANY Impressions: Lower Extremity CT 11/29/19 20:30 IMPRESSION: Subcutaneous inflammatory changes and skin thickening of the medial left thigh consistent with cellulitis. Underlying soft tissue gas without a discrete/defined abscess. Gas-forming organism is considered. TECHNICAL DOCUMENTATION: Quality ID # [id number]: Final reports with documentation of one or more dose reduction techniques (e.g., Automated exposure control, adjustment of the mA and/or kV according to patient size, use of iterative reconstruction technique) copyright 2011 [employer]- All Rights Reserved Assessment & Plan - Diagnosis (1) Abscess of left thigh Is this a current diagnosis for this admission?: Yes (2) Hyperglycemia due to type 2 diabetes mellitus Qualifiers: Diabetes mellitus [employer] insulin use: unspecified [employer] insulin use status Qualified Code(s): E11.65 - Type 2 diabetes mellitus with hyperglycemia Is this a current diagnosis for this admission?: Yes - Plan Summary Plan Summary: This is a 54-year-old female with a large left thigh abscess. The patient has not been taking her insulin. Her sugars are greater than 500. The patient will require admission, intravenous antibiotics, and control of her blood sugars (hopefully below 250). Plan for surgical intervention once she has had some fluid resuscitation and blood glucose control. This is been discussed with the patient at length. She is in agreement with treatment plan. Risks/benefits discussed, informed consent obtained, and all questions answered.
[2019-11-30 10:08] LABS: ANION GAP 7 (5-19); BLOOD UREA NITROGEN 13 mg/dL (7-20); CALCIUM 7.8 mg/dL (8.4-10.2); CARBON DIOXIDE 25 mmol/L (22-30); CHLORIDE 101 mmol/L (98-107); GLUCOSE 213 mg/dL (75-110); POTASSIUM 3.9 mmol/L (3.6-5.0)
[2019-11-30] MEDS ORDERED: PROPOFOL INJ 200 MG/20 ML VIAL IV ONE (11:27)
[2019-11-30] MEDS ORDERED: FENTANYL CITRATE INJ/PF 100 MCG/2 ML AMPUL ONE (11:27)
[2019-11-30] MEDS ORDERED: MIDAZOLAM 2 MG/2 ML INJ ONE (11:27)
[2019-11-30] MEDS ORDERED: ONDANSETRON HCL INJ/PF 4 MG/2 ML SDV IV PRN (12:22)
[2019-11-30] MEDS ORDERED: MEPERIDINE HCL/PF INJ 25 MG/1 ML DISP.SYRIN IV PRN (12:22)
[2019-11-30] MEDS ORDERED: FENTANYL CITRATE INJ/PF 100 MCG/2 ML AMPUL IV PRN ×3 (12:22)
[2019-11-30] MEDS ORDERED: MORPHINE SULFATE 10 MG/ML INJ IV PRN (12:22)
[2019-11-30] MEDS ORDERED: DIPHENHYDRAMINE HCL 50 MG/ML VIAL IV PRN (12:22)
--- NOTE | 2019-11-30 12:46 | Operative Report ---
Nonrecallable Operative Report DATE OF SURGERY: 11/30/19 PREOPERATIVE DIAGNOSIS: Left thigh abscess POSTOPERATIVE DIAGNOSIS: Same as above, large OPERATION: 1. Incision and drainage of a large, complex left thigh abscess. 2. Sharp, excisional debridement of skin and fatty soft tissue of the left upper thigh, 5 x 3 cm. SURGEON: ANJUM LARA ANESTHESIA: GA TISSUE REMOVED OR ALTERED: Wound culture COMPLICATIONS: None apparent ESTIMATED BLOOD LOSS: 30 cc PROCEDURE: Drains/implants: #1 Surgicel in the wound bed. 2. Betadine soaked Kerlix packing. Procedure in detail: After informed consent was obtained, the patient was brought to the operating room and laid in the lithotomy position. The area of the left upper thigh and perineum were prepped and draped in a normal sterile fashion. There was a large area of induration on the left, upper, inner thigh. An incision was created over this area with a 15 blade scalpel. A large cavity filled with purulent material was identified. This was cultured. There was necrotic tissue present within the abscess cavity. This was debrided away sharply. The entire cavity/debridement area measured approximately 5 x 3 cm. Next, finger dissection was performed. The abscess cavity was found to track superiorly and laterally, into the right groin. A counterincision was created in the right groin with a 15 blade scalpel. The wound was irrigated. Hemostasis was achieved using electrocautery and Surgicel. A piece of Surgicel was left in situ. Next, the cavity was packed with a Kerlix soaked in Betadine. 1 end of the Kerlix was pulled through the counterincision. After this was completed, a dressing was fashioned, and the procedure was concluded. All sponge, instrument, and needle counts were correct x2. Condition: Fair.
[2019-11-30] MEDS ORDERED: SUCCINYLCHOLINE CHLORIDE INJ 200 MG/10 ML VIAL ONE (13:43)
[2019-11-30] MEDS ORDERED: DEXAMETHASONE SOD PHOSPHATE INJ 4 MG/1 ML VIAL ONE (13:43)
[2019-11-30] MEDS ORDERED: ONDANSETRON HCL INJ/PF 4 MG/2 ML SDV ONE (13:43)
[2019-11-30] MEDS: KETOROLAC TROMETHAMINE INJ/PF 30 MG/1 ML SDV IV SCH ×2 (14:31→21:24)
[2019-11-30] MEDS: VANCOMYCIN HCL 1,000 MG in DEXTROSE 5%-WATER 250 ML IV SCH ×2 (14:32→21:25)
[2019-11-30] MEDS ORDERED: (PENDING PHARMACY ID) (Albuterol Sulfate 2 PUFF) IH PRN (15:31)
[2019-11-30] MEDS ORDERED: ALBUTEROL SULFATE 0.083% NEB 2.5 MG/3 ML AMPUL NEB PRN (15:31)
[2019-11-30] MEDS ORDERED: ALBUTEROL SULFATE HFA (90 MCG/PUFF) 200 PUFF/8.5 GM MDI IH PRN (15:35)
[2019-11-30 15:51] LABS: ANION GAP 6 (5-19); BLOOD UREA NITROGEN 14 mg/dL (7-20); CALCIUM 7.7 mg/dL (8.4-10.2); CARBON DIOXIDE 25 mmol/L (22-30); CHLORIDE 103 mmol/L (98-107); CREATINE KINASE 100 U/L (30-135); GLUCOSE 128 mg/dL (75-110); POTASSIUM 4.1 mmol/L (3.6-5.0)
[2019-11-30 16:03] LABS: CREATINE KINASE MB 0.62 ng/mL (<4.55); TROPONIN I 0.013 ng/mL
[2019-11-30] MEDS ORDERED: INSULIN GLARGINE,HUM.REC.ANLOG 1,000 UNIT/10 ML VIAL (PYX) SUBCUT ONE (16:15)
[2019-11-30] MEDS: PANTOPRAZOLE SODIUM 20 MG TABLET.DR PO SCH (16:51)
[2019-11-30] MEDS: GABAPENTIN 300 MG CAPSULE PO SCH ×2 (16:51→21:24)
--- NOTE | 2019-11-30 17:10 | PDOC H&P ---
History of Present Illness Admission Date/PCP: 11/29/19 23:58 GRANT PIERRE MD History of Present Illness: NATALIIA SALINAS is a 54 year old female,She presented to the emergency room last night for evaluation of left thigh pain for the last 2 to 3 days she also felt that her blood sugar may be elevated because she ran out of her NovoLog insulin.She is not very adherent to diet regulations, exercise and weight loss she also drink a lot of sodas.She was evaluated emergency room, a CAT scan of the extremity with IV contrast was obtained it demonstrated subcutaneous inflammatory changes in the medial left thigh with subcutaneous gas. There was no well defined fluid collection or abscess demonstrated, no sinus tract formation the underlining myofascial planes well preserved. There was evidence of systemic inflammatory process with a temperature of 101, leukocytosis, white cell count was 17.5, the presentation was more consistent with polymyositis versus necrotizing fasciitis, consultation was obtained from surgery. She went to the OR this morning she underwent incision and drainage of a large complex left thigh abscess with sharp excisional debridement of skin and fatty soft tissue of the left upper thigh. I reviewed the operative report and there was a large area of induration on the left upper inner thigh incision was made over this area with the scalpel, a large cavity filled with purulent material was identified there was necrotic tissue present within the abscess cavity this was debrided. The entire cavity area measured approximately 5 x 3 cm.The serum glucose was 566 pH was 7.36,. She was negative for SARS-CoV-2 Past Medical History Cardiac Medical History: Reports: Hyperlipidema, Hypertension - NOT CURRENTLY ON MEDS Pulmonary Medical History: Reports: Asthma - MILD, Pneumonia Endocrine Medical History: Reports: Diabetes Mellitus Type 2, Obesity GI Medical History: Reports: Gastroesophageal Reflux Disease Musculoskeltal Medical History: Reports: Arthritis Skin Medical History: Reports: Psoriasis Psychiatric Medical History: Reports: Depression Past Surgical History Past Surgical History: Reports: Cardiac Catheterization, Hysterectomy Social History Smoking Status: Never Smoker Frequency of Alcohol Use: None Hx Recreational Drug Use: Yes Drugs: Cocaine Hx Prescription Drug Abuse: No - Advance Directive Resuscitation Status: Full Code Family History Family History: CAD Parental Family History Reviewed: Yes Children Family History Reviewed: Yes Sibling(s) Family History Reviewed.: Yes Medication/Allergy Home Medications: Canagliflozin/Metformin HCl [Invokamet 150-1,000 mg Tablet] 1 tab PO BID 04/12/17 Insulin Aspart [Novolog Flexpen] 24 units SUBCUT MEALS 04/12/17 Insulin Glargine,Hum.rec.anlog [Lantus Solostar] 90 units SUBCUT Q12 04/12/17 Gabapentin [Neurontin 300 mg Capsule] 300 mg PO Q8 08/11/19 Methotrexate Sodium [Rheumatrex 2.5 mg Tablet] 7.5 mg PO PLILAI@1000 08/11/19 Omeprazole 20 mg PO DAILY 08/11/19 Pioglitazone HCl [Actos 15 mg Tablet] 1 tab PO DAILY 08/11/19 Pramipexole Di-HCl [Pramipexole Dihydrochloride] 0.125 mg PO QHS 08/11/19 Albuterol Sulfate [Proair HFA Inhalation Aerosol 8.5 gm MDI] 2 puff IH Q4H PRN 11/30/19 Albuterol Sulfate [Ventolin 0.083% Neb 2.5 mg/3 ml Ampul] 1 vial NEB Q8HP PRN 11/30/19 Clotrimazole/Betamethasone Dip [Lotrisone Cream 15 gm] 1 applic TP BID 11/30/19 Furosemide [Lasix 40 mg Tablet] 40 mg PO BID 11/30/19 Oxycodone HCl [Oxy-Ir 5 mg Tablet] 10 mg PO Q6HP PRN 11/30/19 Phentermine HCl 37.5 mg PO DAILY 11/30/19 Allergies/Adverse Reactions: exenatide [From [place]] Allergy (Intermediate, Verified 09/03/19 17:36) Hives Review of Systems Constitutional: PRESENT: fatigue Eyes: ABSENT: visual disturbances Ears: ABSENT: hearing changes Cardiovascular: ABSENT: chest pain, dyspnea on exertion, edema, orthropnea, palpitations Respiratory: ABSENT: cough, hemoptysis Gastrointestinal: ABSENT: abdominal pain, constipation, diarrhea, hematemesis, hematochezia, nausea, vomiting Genitourinary: ABSENT: dysuria, hematuria Musculoskeletal: PRESENT: muscle weakness Neurological: ABSENT: abnormal gait, abnormal speech, confusion, dizziness, focal weakness, syncope Psychiatric: ABSENT: anxiety, depression, homidical ideation, suicidal ideation Endocrine: ABSENT: cold intolerance, heat intolerance, menstrual abnormalities, polydipsia, polyuria Hematologic/Lymphatic: ABSENT: easy bleeding, easy bruising, lymphadenopathy Physical Exam Vital Signs: Temp Pulse Resp BP Pulse Ox 98.1 F 126 H 18 105/67 93 11/30/19 14:46 11/30/19 14:46 11/30/19 14:46 11/30/19 14:46 11/30/19 14:46 Intake & Output 11/29/19 11/30/19 12/01/19 06:59 06:59 06:59 Intake Total 3166 1253 Output Total 0 210 Balance 3166 1043 Weight 132.5 kg General appearance: PRESENT: morbidly obese Head exam: PRESENT: atraumatic, normocephalic Eye exam: PRESENT: PERRLA Ear exam: PRESENT: normal external ear exam Mouth exam: PRESENT: moist, tongue midline Neck exam: PRESENT: full ROM Respiratory exam: PRESENT: clear to auscultation lamar Cardiovascular exam: PRESENT: RRR, +S1, +S2 Vascular exam: PRESENT: normal capillary refill GI/Abdominal exam: PRESENT: normal bowel sounds, soft Rectal exam: PRESENT: deferred Extremities exam: PRESENT: tenderness, other - Swelling, abscess collection in the left upper thigh Neurological exam: PRESENT: alert, CN II-XII grossly intact Psychiatric exam: PRESENT: appropriate affect, normal mood Skin exam: PRESENT: dry, intact, warm Results Laboratory Results: 11/29/19 19:40 11/30/19 15:20 11/29/19 11/29/19 11/29/19 19:40 19:40 19:40 WBC 17.5 H RBC 4.54 Hgb 14.7 Hct 42.5 MCV 94 MCH 32.3 MCHC 34.5 RDW 14.8 H Plt Count 277 Seg Neutrophils % 83.6 H Carbonic Acid HCO3/H2CO3 Ratio ABG pH ABG pCO2 ABG pO2 ABG HCO3 ABG O2 Saturation ABG Base Excess VBG pH 7.36 VBG pCO2 55.2 VBG HCO3 30.3 VBG Base Excess 3.3 FiO2 Sodium 129.7 L Potassium 4.6 Chloride 92 L Carbon Dioxide 30 Anion Gap 8 BUN 16 Creatinine 0.72 Est GFR ( Amer) > 60 Glucose 566 H* Lactic Acid Calcium 8.4 Phosphorus Magnesium Total Bilirubin 1.1 AST 19 Alkaline Phosphatase 124 Ammonia C-Reactive Protein Total Protein 7.0 Albumin 3.5 Amylase Lipase TSH Free T4 Urine Color Urine Appearance Urine pH Ur Specific [place] Urine Protein Urine Glucose (UA) Urine Ketones Urine Blood Urine Nitrite Ur Leukocyte Esterase Ur Squamous Epith Cells 11/29/19 11/30/19 11/30/19 20:40 00:02 01:54 WBC RBC Hgb Hct MCV MCH MCHC RDW Plt Count Seg Neutrophils % Carbonic Acid HCO3/H2CO3 Ratio ABG pH ABG pCO2 ABG pO2 ABG HCO3 ABG O2 Saturation ABG Base Excess VBG pH VBG pCO2 VBG HCO3 VBG Base Excess FiO2 Sodium 132.3 L Potassium 3.7 Chloride 100 Carbon Dioxide 25 Anion Gap 7 BUN 14 Creatinine 0.64 Est GFR ( Amer) > 60 Glucose 341 H Lactic Acid 1.4 Calcium 7.5 L Phosphorus Magnesium Total Bilirubin AST Alkaline Phosphatase Ammonia C-Reactive Protein Total Protein Albumin Amylase Lipase TSH Free T4 Urine Color STRAW Urine Appearance SLIGHTLY-CLOUDY Urine pH 5.0 Ur Specific [place] 1.031 Urine Protein 100 H Urine Glucose (UA) 1000 H Urine Ketones NEGATIVE Urine Blood MODERATE H Urine Nitrite NEGATIVE Ur Leukocyte Esterase NEGATIVE Ur Squamous Epith Cells MANY 11/30/19 11/30/19 11/30/19 01:54 01:54 01:54 WBC RBC Hgb Hct MCV MCH MCHC RDW Plt Count Seg Neutrophils % Carbonic Acid HCO3/H2CO3 Ratio ABG pH ABG pCO2 ABG pO2 ABG HCO3 ABG O2 Saturation ABG Base Excess VBG pH VBG pCO2 VBG HCO3 VBG Base Excess FiO2 Sodium Potassium Chloride Carbon Dioxide Anion Gap BUN Creatinine Est GFR ( Amer) Glucose Lactic Acid Calcium Phosphorus 1.8 L Magnesium 1.9 Total Bilirubin AST Alkaline Phosphatase Ammonia < 8.7 L C-Reactive Protein 297.7 H Total Protein Albumin Amylase < 30 L Lipase 17.4 L TSH 2.77 Free T4 1.12 Urine Color Urine Appearance Urine pH Ur Specific [place] Urine Protein Urine Glucose (UA) Urine Ketones Urine Blood Urine Nitrite Ur Leukocyte Esterase Ur Squamous Epith Cells 11/30/19 11/30/19 11/30/19 04:50 05:58 09:33 WBC RBC Hgb Hct MCV MCH MCHC RDW Plt Count Seg Neutrophils % Carbonic Acid 1.16 HCO3/H2CO3 Ratio 18:1 ABG pH 7.36 ABG pCO2 38.7 ABG pO2 62.9 L ABG HCO3 21.2 ABG O2 Saturation 91.3 L ABG Base Excess -3.9 VBG pH VBG pCO2 VBG HCO3 VBG Base Excess FiO2 21% Sodium 133.5 L 132.6 L Potassium 3.5 L 3.9 Chloride 99 101 Carbon Dioxide 29 25 Anion Gap 6 7 BUN 14 13 Creatinine 0.63 0.60 Est GFR ( Amer) > 60 > 60 Glucose 344 H 213 H Lactic Acid Calcium 8.0 L 7.8 L Phosphorus Magnesium Total Bilirubin AST Alkaline Phosphatase Ammonia C-Reactive Protein Total Protein Albumin Amylase Lipase TSH Free T4 Urine Color Urine Appearance Urine pH Ur Specific [place] Urine Protein Urine Glucose (UA) Urine Ketones Urine Blood Urine Nitrite Ur Leukocyte Esterase Ur Squamous Epith Cells 11/30/19 15:20 WBC RBC Hgb Hct MCV MCH MCHC RDW Plt Count Seg Neutrophils % Carbonic Acid HCO3/H2CO3 Ratio ABG pH ABG pCO2 ABG pO2 ABG HCO3 ABG O2 Saturation ABG Base Excess VBG pH VBG pCO2 VBG HCO3 VBG Base Excess FiO2 Sodium 134.2 L Potassium 4.1 Chloride 103 Carbon Dioxide 25 Anion Gap 6 BUN 14 Creatinine 0.72 Est GFR ( Amer) > 60 Glucose 128 H Lactic Acid Calcium 7.7 L Phosphorus Magnesium Total Bilirubin AST Alkaline Phosphatase Ammonia C-Reactive Protein Total Protein Albumin Amylase Lipase TSH Free T4 Urine Color Urine Appearance Urine pH Ur Specific [place] Urine Protein Urine Glucose (UA) Urine Ketones Urine Blood Urine Nitrite Ur Leukocyte Esterase Ur Squamous Epith Cells 11/30/19 11/30/19 11/30/19 01:54 01:54 01:54 Creatine Kinase 115 CK-MB (CK-2) 1.01 Troponin I < 0.012 NT-Pro-B Natriuret Pep 330 H 11/30/19 11/30/19 11/30/19 07:45 07:45 15:20 Creatine Kinase 125 100 CK-MB (CK-2) 1.26 Troponin I < 0.012 NT-Pro-B Natriuret Pep 11/30/19 15:20 Creatine Kinase CK-MB (CK-2) 0.62 Troponin I 0.013 NT-Pro-B Natriuret Pep Impressions: Lower Extremity CT 11/29/19 20:30 IMPRESSION: Subcutaneous inflammatory changes and skin thickening of the medial left thigh consistent with cellulitis. Underlying soft tissue gas without a discrete/defined abscess. Gas-forming organism is considered. TECHNICAL DOCUMENTATION: Quality ID # [id number]: Final reports with documentation of one or more dose reduction techniques (e.g., Automated exposure control, adjustment of the mA and/or kV according to patient size, use of iterative reconstruction technique) copyright 2011 [employer]- All Rights Reserved Assessment & Plan - Diagnosis (1) Abscess of left thigh Is this a current diagnosis for this admission?: Yes Plan: Start IV antibiotic with vancomycin and Zosyn this will cover MRSA, anaerobes gram-negative and gram-positive organisms until culture results return (2) Diabetic hyperosmolar non-ketotic state Is this a current diagnosis for this admission?: Yes Plan: Patient started on insulin drip per protocol, Accu-Chek every 1 hour, Chem-7 every 4 hours, also initiate IV fluid normal saline (3) Morbid obesity due to excess calories Is this a current diagnosis for this admission?: Yes (4) Depression Qualifiers: Depression Type: major depressive disorder Major depression recurrence: recurrent Active/Remission status: currently active Major depression episode severity: severe Psychotic features: without psychotic features Qualified Code(s): F33.2 - Major depressive disorder, recurrent severe without psychotic features Is this a current diagnosis for this admission?: Yes (5) Psoriasis Is this a current diagnosis for this admission?: Yes
[2019-11-30] MEDS ORDERED: METFORMIN HCL PO SCH (18:00)
[2019-11-30] MEDS ORDERED: [UNRECOGNIZED DRUG - OTHER] PO SCH (18:00)
[2019-11-30] MEDS ORDERED: CANAGLIFLOZIN PO SCH (18:00)
[2019-11-30] MEDS: PRAMIPEXOLE DI-HCL 0.25 MG TABLET PO SCH (21:23)
[2019-11-30] MEDS: FAMOTIDINE 20 MG TABLET PO SCH (21:24)
[2019-11-30 21:48] LABS: ANION GAP 10 (5-19); BLOOD UREA NITROGEN 19 mg/dL (7-20); CALCIUM 7.4 mg/dL (8.4-10.2); CARBON DIOXIDE 22 mmol/L (22-30); CHLORIDE 101 mmol/L (98-107); GLUCOSE 335 mg/dL (75-110)
[2019-11-30 22:00] LABS: POTASSIUM 5.2 mmol/L (3.6-5.0)
[2019-11-30] MEDS ORDERED: (PENDING PHARMACY ID) (Pramipexole Di-Hcl [Pramipexole Dihydrochloride] 0.125 MG) PO SCH (22:00)
[2019-11-30] MEDS: INSULIN LISPRO 100 UNIT/ML 3 ML VIAL SUBCUT SCH (22:34)
[2019-12-01 01:59] LABS: ANION GAP 10 (5-19); BLOOD UREA NITROGEN 24 mg/dL (7-20); CALCIUM 7.1 mg/dL (8.4-10.2); CARBON DIOXIDE 21 mmol/L (22-30); CHLORIDE 101 mmol/L (98-107); POTASSIUM 4.8 mmol/L (3.6-5.0)
[2019-12-01 02:07] LABS: GLUCOSE 489 mg/dL (75-110)
[2019-12-01] MEDS: OXYCODONE HCL IR 5 MG TABLET PO PRN ×2 (04:13→18:12)
[2019-12-01] MEDS: NORMAL SALINE 1000 ML 1,000 ML IV PRN ×2 (04:15→17:01)
[2019-12-01 05:47] LABS: HEMATOCRIT 33.7 % (36.0-47.0); MEAN CORPUSCULAR HEMOGLOBIN 32.1 pg (27.0-33.4); MEAN CORPUSCULAR HGB CONC 33.9 g/dL (32.0-36.0); MEAN CORPUSCULAR VOLUME 95 fl (80-97); PLATELET COUNT 236 10^3/uL (150-450); RED BLOOD COUNT 3.57 10^6/uL (3.72-5.28); RED CELL DISTRIBUTION WIDTH 15.3 % (11.5-14.0); WHITE BLOOD COUNT 17.4 10^3/uL (4.0-10.5)
[2019-12-01] MEDS: PIPERACILLIN SODIUM/TAZOBACTAM 3.375 GM in NORMAL SALINE 100 ML IV SCH ×3 (05:49→17:23)
[2019-12-01] MEDS: GABAPENTIN 300 MG CAPSULE PO SCH ×3 (05:49→21:54)
[2019-12-01] MEDS: INSULIN GLARGINE,HUM.REC.ANLOG 1,000 UNIT/10 ML VIAL SUBCUT SCH ×2 (05:49→18:11)
[2019-12-01 05:52] LABS: HEMOGLOBIN 11.5 g/dL (12.0-15.5)
[2019-12-01] MEDS: KETOROLAC TROMETHAMINE INJ/PF 30 MG/1 ML SDV IV SCH (05:52)
[2019-12-01 06:01] LABS: TRIGLYCERIDES 146 mg/dL (<150)
[2019-12-01 06:04] LABS: ANION GAP 9 (5-19); BLOOD UREA NITROGEN 26 mg/dL (7-20); CARBON DIOXIDE 21 mmol/L (22-30); CHLORIDE 101 mmol/L (98-107); POTASSIUM 4.5 mmol/L (3.6-5.0)
[2019-12-01 06:13] LABS: DIRECT LDL 79 mg/dL (<100)
[2019-12-01 06:18] LABS: ABSOLUTE LYMPHOCYTES# (MANUAL) 1.9 10^3/uL (0.5-4.7); ABSOLUTE MONOCYTES # (MANUAL) 0.5 10^3/uL (0.1-1.4); BASOPHILS % (MANUAL) 1 % (0-2); EOSINOPHILS % (MANUAL) 0 % (0-6); LYMPHOCYTES % (MANUAL) 11 % (13-45); MONOCYTES % (MANUAL) 3 % (3-13); SEGMENTED NEUTROPHILS % (MAN) 85 % (42-78); TOTAL CELLS COUNTED 100
[2019-12-01 06:23] LABS: GLUCOSE 465 mg/dL (75-110); TOXIC GRANULATION SLIGHT
[2019-12-01 06:24] LABS: ANISOCYTOSIS SLIGHT; PLATELET COMMENT ADEQUATE
[2019-12-01] MEDS: VANCOMYCIN HCL 1,000 MG in DEXTROSE 5%-WATER 250 ML IV SCH (06:53)
--- NOTE | 2019-12-01 09:12 | PDOC PROGRESS REPORT ---
Subjective Progress Note for:: 12/01/19 Subjective:: feels ok still with left groin pain Reason For Visit: ? NECROTIZING FASCIITIS,NKDM Physical Exam Vital Signs: Temp Pulse Resp BP Pulse Ox 97.5 F 77 18 97/61 L 97 12/01/19 07:32 12/01/19 07:32 12/01/19 07:32 12/01/19 07:32 12/01/19 07:32 Intake & Output 11/30/19 12/01/19 12/02/19 06:59 06:59 06:59 Intake Total 3166 3477 Output Total 0 460 Balance 3166 3017 Weight 132.5 kg 132.7 kg General appearance: PRESENT: no acute distress Head exam: PRESENT: normocephalic Eye exam: PRESENT: EOMI Mouth exam: PRESENT: moist Neck exam: PRESENT: full ROM Respiratory exam: PRESENT: clear to auscultation lamar Cardiovascular exam: PRESENT: RRR Pulses: PRESENT: normal femoral pulses, normal dorsalis pedis pul Vascular exam: PRESENT: normal capillary refill GI/Abdominal exam: PRESENT: soft Rectal exam: PRESENT: deferred Extremities exam: PRESENT: other - left groin/thigh packing removed wound digitalized no pus tissue dry Musculoskeletal exam: PRESENT: full ROM Psychiatric exam: PRESENT: appropriate affect Skin exam: PRESENT: dry Results Laboratory Results: 12/01/19 05:22 12/01/19 05:22 11/30/19 11/30/19 11/30/19 09:33 15:20 21:22 WBC RBC Hgb Hct MCV MCH MCHC RDW Plt Count Seg Neutrophils % Sodium 132.6 L 134.2 L 132.7 L Potassium 3.9 4.1 5.2 H D Chloride 101 103 101 Carbon Dioxide 25 25 22 Anion Gap 7 6 10 BUN 13 14 19 Creatinine 0.60 0.72 1.15 Est GFR ( Amer) > 60 > 60 59 L Glucose 213 H 128 H 335 H Calcium 7.8 L 7.7 L 7.4 L Triglycerides Cholesterol LDL Cholesterol Direct VLDL Cholesterol HDL Cholesterol 12/01/19 12/01/19 12/01/19 01:29 05:22 05:22 WBC 17.4 H RBC 3.57 L Hgb 11.5 L D Hct 33.7 L MCV 95 MCH 32.1 MCHC 33.9 RDW 15.3 H Plt Count 236 Seg Neutrophils % Not Reportable Sodium 132.2 L Potassium 4.8 Chloride 101 Carbon Dioxide 21 L Anion Gap 10 BUN 24 H Creatinine 1.56 H Est GFR ( Amer) 42 L Glucose 489 H* Calcium 7.1 L Triglycerides 146 Cholesterol 128.20 LDL Cholesterol Direct 79 VLDL Cholesterol 29.0 HDL Cholesterol 27 L 12/01/19 05:22 WBC RBC Hgb Hct MCV MCH MCHC RDW Plt Count Seg Neutrophils % Sodium 130.6 L Potassium 4.5 Chloride 101 Carbon Dioxide 21 L Anion Gap 9 BUN 26 H Creatinine 1.55 H Est GFR ( Amer) 42 L Glucose 465 H* Calcium 7.0 L* Triglycerides Cholesterol LDL Cholesterol Direct VLDL Cholesterol HDL Cholesterol 11/30/19 11/30/19 11/30/19 01:54 01:54 01:54 Creatine Kinase 115 CK-MB (CK-2) 1.01 Troponin I < 0.012 NT-Pro-B Natriuret Pep 330 H 11/30/19 11/30/19 11/30/19 07:45 07:45 15:20 Creatine Kinase 125 100 CK-MB (CK-2) 1.26 Troponin I < 0.012 NT-Pro-B Natriuret Pep 11/30/19 15:20 Creatine Kinase CK-MB (CK-2) 0.62 Troponin I 0.013 NT-Pro-B Natriuret Pep Impressions: Lower Extremity CT 11/29/19 20:30 IMPRESSION: Subcutaneous inflammatory changes and skin thickening of the medial left thigh consistent with cellulitis. Underlying soft tissue gas without a discrete/defined abscess. Gas-forming organism is considered. TECHNICAL DOCUMENTATION: Quality ID # [id number]: Final reports with documentation of one or more dose reduction techniques (e.g., Automated exposure control, adjustment of the mA and/or kV according to patient size, use of iterative reconstruction technique) copyright 2011 [employer]- All Rights Reserved Assessment & Plan - Plan Summary Plan Summary: left thigh/groin abscess s/p i and d with betadine packing packing removed today will start wet to dry dressing changes.
[2019-12-01] MEDS: PANTOPRAZOLE SODIUM 20 MG TABLET.DR PO SCH (09:36)
[2019-12-01] MEDS: ENOXAPARIN SODIUM INJ 40 MG/0.4 ML DISP.SYRIN SUBCUT SCH (09:36)
[2019-12-01] MEDS: PIOGLITAZONE HCL 15 MG TABLET PO SCH (09:36)
[2019-12-01] MEDS: FAMOTIDINE 20 MG TABLET PO SCH ×2 (09:36→21:54)
[2019-12-01] MEDS ORDERED: INSULIN GLARGINE,HUM.REC.ANLOG 1,000 UNIT/10 ML VIAL SUBCUT SCH (10:00)
[2019-12-01 10:10] LABS: ALBUMIN 2.6 g/dL (3.5-5.0); ALKALINE PHOSPHATASE 91 U/L (38-126); ANION GAP 11 (5-19); ASPARTATE AMINO TRANSFERASE 27 U/L (14-36); BILIRUBIN,DIRECT 0.2 mg/dL (0.0-0.4); BILIRUBIN,TOTAL 0.6 mg/dL (0.2-1.3); BLOOD UREA NITROGEN 29 mg/dL (7-20); CALCIUM 7.1 mg/dL (8.4-10.2); CARBON DIOXIDE 19 mmol/L (22-30); CHLORIDE 100 mmol/L (98-107); POTASSIUM 4.4 mmol/L (3.6-5.0); TOTAL PROTEIN 5.7 g/dL (6.3-8.2)
[2019-12-01] MEDS: INSULIN LISPRO 100 UNIT/ML 3 ML VIAL SUBCUT SCH ×6 (10:12→21:54)
[2019-12-01 10:23] LABS: GLUCOSE 465 mg/dL (75-110)
[2019-12-01] MEDS ORDERED: INSULIN LISPRO 100 UNIT/ML 3 ML VIAL SUBCUT ONE (11:15)
[2019-12-01 14:12] LABS: ANION GAP 10 (5-19); BLOOD UREA NITROGEN 31 mg/dL (7-20); CALCIUM 7.3 mg/dL (8.4-10.2); CARBON DIOXIDE 19 mmol/L (22-30); CHLORIDE 102 mmol/L (98-107); POTASSIUM 4.2 mmol/L (3.6-5.0)
[2019-12-01 14:24] LABS: GLUCOSE 406 mg/dL (75-110)
[2019-12-01 16:02] LABS: UR PRO/CREAT RATIO RESULT 0.8 mg/mg (0.0-0.2); URINE PROTEIN 72.1 mg/dL (<12)
[2019-12-01] MEDS ORDERED: VANCOMYCIN HCL 1,500 MG in DEXTROSE 5%-WATER 250 ML IV SCH (18:00)
[2019-12-01 18:04] LABS: ANION GAP 11 (5-19); BLOOD UREA NITROGEN 35 mg/dL (7-20); CALCIUM 7.3 mg/dL (8.4-10.2); CARBON DIOXIDE 22 mmol/L (22-30); CHLORIDE 100 mmol/L (98-107); GLUCOSE 283 mg/dL (75-110); POTASSIUM 4.5 mmol/L (3.6-5.0)
--- NOTE | 2019-12-01 20:38 | PDOC PROGRESS REPORT ---
Subjective Progress Note for:: 12/01/19 Subjective:: Patient seen by the bedside, the urine culture is growing cocci in chain suggesting strep, there is increased serum creatinine probably prerenal, will DC vancomycin. She has hypocalcemia, normal when corrected for albumin, the blood sugar has been very high, suggesting severe resistance to insulin Reason For Visit: ? NECROTIZING FASCIITIS,NKDM Physical Exam Vital Signs: Temp Pulse Resp BP Pulse Ox 97.4 F 78 18 105/79 97 12/01/19 19:54 12/01/19 19:54 12/01/19 19:54 12/01/19 19:54 12/01/19 19:54 Intake & Output 11/30/19 12/01/19 12/02/19 06:59 06:59 06:59 Intake Total 3166 3577 2555 Output Total 0 460 700 Balance 3166 3117 1855 Weight 132.5 kg 132.7 kg General appearance: PRESENT: no acute distress Eye exam: PRESENT: PERRLA Respiratory exam: PRESENT: clear to auscultation lamar Cardiovascular exam: PRESENT: +S1, +S2 GI/Abdominal exam: PRESENT: soft Neurological exam: PRESENT: alert Results Laboratory Results: 12/01/19 05:22 12/01/19 17:24 11/30/19 12/01/19 12/01/19 21:22 01:29 05:22 WBC 17.4 H RBC 3.57 L Hgb 11.5 L D Hct 33.7 L MCV 95 MCH 32.1 MCHC 33.9 RDW 15.3 H Plt Count 236 Seg Neutrophils % Not Reportable Sodium 132.7 L 132.2 L Potassium 5.2 H D 4.8 Chloride 101 101 Carbon Dioxide 22 21 L Anion Gap 10 10 BUN 19 24 H Creatinine 1.15 1.56 H Est GFR ( Amer) 59 L 42 L Est GFR (Non-Af Amer) Glucose 335 H 489 H* Calcium 7.4 L 7.1 L Total Bilirubin AST Alkaline Phosphatase Total Protein Albumin Triglycerides Cholesterol LDL Cholesterol Direct VLDL Cholesterol HDL Cholesterol 12/01/19 12/01/19 12/01/19 05:22 05:22 09:18 WBC RBC Hgb Hct MCV MCH MCHC RDW Plt Count Seg Neutrophils % Sodium 130.6 L Cancelled Potassium 4.5 Cancelled Chloride 101 Cancelled Carbon Dioxide 21 L Cancelled Anion Gap 9 Cancelled BUN 26 H Cancelled Creatinine 1.55 H Cancelled Est GFR ( Amer) 42 L Cancelled Est GFR (Non-Af Amer) Cancelled Glucose 465 H* Cancelled Calcium 7.0 L* Cancelled Total Bilirubin AST Alkaline Phosphatase Total Protein Albumin Triglycerides 146 Cholesterol 128.20 LDL Cholesterol Direct 79 VLDL Cholesterol 29.0 HDL Cholesterol 27 L 12/01/19 12/01/19 12/01/19 09:18 13:36 17:24 WBC RBC Hgb Hct MCV MCH MCHC RDW Plt Count Seg Neutrophils % Sodium 130.3 L 131.0 L 132.7 L Potassium 4.4 4.2 4.5 Chloride 100 102 100 Carbon Dioxide 19 L 19 L 22 Anion Gap 11 10 11 BUN 29 H 31 H 35 H Creatinine 1.48 H 1.63 H 1.76 H Est GFR ( Amer) 44 L 40 L 36 L Est GFR (Non-Af Amer) Glucose 465 H* 406 H* 283 H Calcium 7.1 L 7.3 L 7.3 L Total Bilirubin 0.6 AST 27 Alkaline Phosphatase 91 Total Protein 5.7 L Albumin 2.6 L Triglycerides Cholesterol LDL Cholesterol Direct VLDL Cholesterol HDL Cholesterol 11/29/19 20:40 Clean Catch Midstream Urine Culture - Final Yeast, Not Maddy Albicans 11/30/19 11/30/19 11/30/19 01:54 01:54 01:54 Creatine Kinase 115 CK-MB (CK-2) 1.01 Troponin I < 0.012 NT-Pro-B Natriuret Pep 330 H 11/30/19 11/30/19 11/30/19 07:45 07:45 15:20 Creatine Kinase 125 100 CK-MB (CK-2) 1.26 Troponin I < 0.012 NT-Pro-B Natriuret Pep 11/30/19 15:20 Creatine Kinase CK-MB (CK-2) 0.62 Troponin I 0.013 NT-Pro-B Natriuret Pep Impressions: Lower Extremity CT 11/29/19 20:30 IMPRESSION: Subcutaneous inflammatory changes and skin thickening of the medial left thigh consistent with cellulitis. Underlying soft tissue gas without a discrete/defined abscess. Gas-forming organism is considered. TECHNICAL DOCUMENTATION: Quality ID # [id number]: Final reports with documentation of one or more dose reduction techniques (e.g., Automated exposure control, adjustment of the mA and/or kV according to patient size, use of iterative reconstruction technique) copyright 2011 [employer]- All Rights Reserved Assessment & Plan - Diagnosis (1) Abscess of left thigh Is this a current diagnosis for this admission?: Yes Plan: Culture growing cocci in chain, suggesting Streptococcus, DC vancomycin, continue Zosyn (2) Diabetic hyperosmolar non-ketotic state Is this a current diagnosis for this admission?: Yes Plan: Blood sugar is very high, patient is obese Suggesting resistance to insulin requiring very high dosages of insulin (3) Morbid obesity due to excess calories Is this a current diagnosis for this admission?: Yes (4) Depression Qualifiers: Depression Type: major depressive disorder Major depression recurrence: recurrent Active/Remission status: currently active Major depression episode severity: severe Psychotic features: without psychotic features Qualified Code(s): F33.2 - Major depressive disorder, recurrent severe without psychotic features Is this a current diagnosis for this admission?: Yes (5) Psoriasis Is this a current diagnosis for this admission?: Yes (6) Acute kidney injury Is this a current diagnosis for this admission?: Yes Plan: This is probably prerenal, cannot rule out ATN, DC vancomycin - Time Time Spent with patient: 35 or more minutes Level of Care: IMCU
[2019-12-01 21:37] LABS: ANION GAP 10 (5-19); BLOOD UREA NITROGEN 37 mg/dL (7-20); CALCIUM 7.2 mg/dL (8.4-10.2); CARBON DIOXIDE 21 mmol/L (22-30); CHLORIDE 102 mmol/L (98-107); GLUCOSE 194 mg/dL (75-110); POTASSIUM 4.2 mmol/L (3.6-5.0)
[2019-12-01] MEDS: PRAMIPEXOLE DI-HCL 0.25 MG TABLET PO SCH (21:54)
[2019-12-02] MEDS: PIPERACILLIN SODIUM/TAZOBACTAM 3.375 GM in NORMAL SALINE 100 ML IV SCH ×3 (00:44→12:37)
[2019-12-02 01:59] LABS: ANION GAP 9 (5-19); BLOOD UREA NITROGEN 40 mg/dL (7-20); CALCIUM 7.1 mg/dL (8.4-10.2); CARBON DIOXIDE 22 mmol/L (22-30); CHLORIDE 106 mmol/L (98-107); GLUCOSE 170 mg/dL (75-110); POTASSIUM 4.1 mmol/L (3.6-5.0)
[2019-12-02] MEDS: NORMAL SALINE 1000 ML 1,000 ML IV PRN ×2 (04:08→20:21)
[2019-12-02 06:14] LABS: ABSOLUTE BASOPHILS # (AUTO) 0.1 10^3/uL (0.0-0.2); ABSOLUTE EOSINOPHILS # (AUTO) 0.2 10^3/uL (0.0-0.6); ABSOLUTE LYMPHOCYTES (AUTO) 1.7 10^3/uL (0.5-4.7); ABSOLUTE MONOCYTES (AUTO) 1.2 10^3/uL (0.1-1.4); BASOPHILS % (AUTO) 0.6 % (0-2); EOSINOPHILS % (AUTO) 1.6 % (0-6); HEMATOCRIT 33.4 % (36.0-47.0); HEMOGLOBIN 11.2 g/dL (12.0-15.5); LYMPHOCYTES % (AUTO) 12.2 % (13-45); MEAN CORPUSCULAR HEMOGLOBIN 31.5 pg (27.0-33.4); MEAN CORPUSCULAR HGB CONC 33.6 g/dL (32.0-36.0); MEAN CORPUSCULAR VOLUME 94 fl (80-97); MONOCYTES % (AUTO) 8.5 % (3-13); PLATELET COUNT 260 10^3/uL (150-450); RED BLOOD COUNT 3.56 10^6/uL (3.72-5.28); SEGMENTED NEUTROPHILS % (AUTO) 77.1 % (42-78); TOTAL CELLS COUNTED % (AUTO) 100 %; WHITE BLOOD COUNT 14.3 10^3/uL (4.0-10.5)
[2019-12-02] MEDS: GABAPENTIN 300 MG CAPSULE PO SCH ×3 (06:14→22:17)
[2019-12-02] MEDS: PANTOPRAZOLE SODIUM 20 MG TABLET.DR PO SCH (06:14)
[2019-12-02] MEDS: OXYCODONE HCL IR 5 MG TABLET PO PRN ×2 (06:15→16:07)
[2019-12-02 06:24] LABS: ANION GAP 7 (5-19); BLOOD UREA NITROGEN 42 mg/dL (7-20); CALCIUM 7.3 mg/dL (8.4-10.2); CARBON DIOXIDE 23 mmol/L (22-30); CHLORIDE 105 mmol/L (98-107); GLUCOSE 151 mg/dL (75-110); POTASSIUM 4.2 mmol/L (3.6-5.0)
[2019-12-02] MEDS: INSULIN GLARGINE,HUM.REC.ANLOG 1,000 UNIT/10 ML VIAL SUBCUT SCH ×2 (06:26→17:59)
[2019-12-02] MEDS: INSULIN LISPRO 100 UNIT/ML 3 ML VIAL SUBCUT SCH ×7 (08:36→22:18)
[2019-12-02] MEDS: PIOGLITAZONE HCL 15 MG TABLET PO SCH (09:58)
[2019-12-02] MEDS: FAMOTIDINE 20 MG TABLET PO SCH ×2 (09:59→22:16)
[2019-12-02 10:24] LABS: ANION GAP 7 (5-19); BLOOD UREA NITROGEN 41 mg/dL (7-20); CALCIUM 7.2 mg/dL (8.4-10.2); CARBON DIOXIDE 21 mmol/L (22-30); CHLORIDE 107 mmol/L (98-107); GLUCOSE 103 mg/dL (75-110); POTASSIUM 3.9 mmol/L (3.6-5.0)
[2019-12-02] MEDS: ENOXAPARIN SODIUM INJ 40 MG/0.4 ML DISP.SYRIN SUBCUT SCH (12:16)
[2019-12-02] MEDS ORDERED: FENTANYL CITRATE INJ/PF 100 MCG/2 ML AMPUL ONE (12:29)
[2019-12-02] MEDS ORDERED: PROPOFOL INJ 200 MG/20 ML VIAL IV ONE (12:30)
[2019-12-02] MEDS ORDERED: MIDAZOLAM 2 MG/2 ML INJ ONE (12:30)
[2019-12-02] MEDS ORDERED: ONDANSETRON HCL INJ/PF 4 MG/2 ML SDV ONE (12:56)
[2019-12-02] MEDS ORDERED: DIPHENHYDRAMINE HCL 50 MG/ML VIAL IV PRN (13:24)
[2019-12-02] MEDS ORDERED: ONDANSETRON HCL INJ/PF 4 MG/2 ML SDV IV PRN (13:24)
[2019-12-02] MEDS ORDERED: FENTANYL CITRATE INJ/PF 100 MCG/2 ML AMPUL IV PRN ×3 (13:24)
[2019-12-02] MEDS ORDERED: MEPERIDINE HCL/PF INJ 25 MG/1 ML DISP.SYRIN IV PRN (13:24)
[2019-12-02] MEDS ORDERED: MORPHINE SULFATE 10 MG/ML INJ IV PRN (13:24)
[2019-12-02] MEDS ORDERED: LIDOCAINE 1%/EPINEPHRINE INJ 20 ML VIAL ONE (14:10)
--- NOTE | 2019-12-02 14:30 | Operative Report ---
Nonrecallable Operative Report DATE OF SURGERY: 12/02/19 PREOPERATIVE DIAGNOSIS: left thigh abscess with necrotizing fasciitis POSTOPERATIVE DIAGNOSIS: left thigh abscess with necrotizing fasciitis OPERATION: Incision and debridement of left thigh abscess SURGEON: LEAH MEHTA ANESTHESIA: LMAC TISSUE REMOVED OR ALTERED: Skin left thigh COMPLICATIONS: None ESTIMATED BLOOD LOSS: 25 cc INTRAOPERATIVE FINDINGS: See dictation PROCEDURE: Patient was brought to the operating room awake alert stable condition placed in the operative table supine position given IV sedation she was then placed in a frog-leg position the left upper inner thigh just below the below the groin crease was prepped and draped in usual sterile fashion. Patient had previously had incision and drainage of an abscess which was 2 incisions 1 at the femoral canal and then 1 much more posterior at the level of the labia. The wound is being packed on the floor however she still had purulent material coming out of the upper wound and what appeared to be some necrotic fascia underneath. After adequate prep and drape the upper inner thigh was anesthetized with 1% lidocaine with epinephrine. The 2 incisions were connected with Bovie cautery up for approximately 15 to 20 cm long from the level labia to the level of the femoral canal the elliptical portion of skin was removed. This allowed the wound to be wide open and examined there was some purulent fat with drainage of pus on compression which which was excised from underneath the upper flap. Once this was completed all necrotic tissue was removed we did not penetrate the abductor muscles. We then copiously irrigated the wound with normal saline suctioned dry and packed it with a Betadine soaked Kerlix gauze. This completed the procedure. Sponge needle counts were correct x2 the patient was returned recovery in stable condition no complications
[2019-12-02 16:02] LABS: ANION GAP 9 (5-19); BLOOD UREA NITROGEN 41 mg/dL (7-20); CALCIUM 7.6 mg/dL (8.4-10.2); CARBON DIOXIDE 23 mmol/L (22-30); CHLORIDE 105 mmol/L (98-107); GLUCOSE 73 mg/dL (75-110); POTASSIUM 3.9 mmol/L (3.6-5.0)
[2019-12-02] MEDS: AMPICILLIN SODIUM 1 GM in NORMAL SALINE 50 ML IV SCH (17:58)
--- NOTE | 2019-12-02 20:37 | PDOC PROGRESS REPORT ---
Subjective Progress Note for:: 12/02/19 Subjective:: Patient was back in the operative room today for the second incision and drainage, the culture from the abscess grew Enterococcus faecalis sensitive to ampicillin, also found was other organisms Prevotella, Finegoldia. She is now diagnosed with necrotizing fasciitis, she will need to stay till Thursday at least Reason For Visit: ? NECROTIZING FASCIITIS,NKDM Physical Exam Vital Signs: Temp Pulse Resp BP Pulse Ox 97.8 F 79 18 133/54 H 99 12/02/19 15:02 12/02/19 15:02 12/02/19 15:02 12/02/19 15:02 12/02/19 15:02 Intake & Output 12/01/19 12/02/19 12/03/19 06:59 06:59 06:59 Intake Total 3577 4005 1540 Output Total 460 1000 20 Balance 3117 3005 1520 Weight 132.7 kg 133 kg General appearance: PRESENT: no acute distress Eye exam: PRESENT: PERRLA Respiratory exam: PRESENT: clear to auscultation lamar Cardiovascular exam: PRESENT: +S1, +S2 GI/Abdominal exam: PRESENT: soft Neurological exam: PRESENT: alert Results Laboratory Results: 12/02/19 05:27 12/02/19 15:30 12/01/19 12/02/19 12/02/19 20:43 01:22 05:27 WBC 14.3 H RBC 3.56 L Hgb 11.2 L Hct 33.4 L MCV 94 MCH 31.5 MCHC 33.6 RDW 15.0 H Plt Count 260 Seg Neutrophils % 77.1 Sodium 133.4 L 136.6 L Potassium 4.2 4.1 Chloride 102 106 Carbon Dioxide 21 L 22 Anion Gap 10 9 BUN 37 H 40 H Creatinine 1.73 H 1.69 H Est GFR ( Amer) 37 L 38 L Glucose 194 H 170 H Calcium 7.2 L 7.1 L 12/02/19 12/02/19 12/02/19 05:27 09:45 15:30 WBC RBC Hgb Hct MCV MCH MCHC RDW Plt Count Seg Neutrophils % Sodium 135.0 L 134.8 L 137.1 Potassium 4.2 3.9 3.9 Chloride 105 107 105 Carbon Dioxide 23 21 L 23 Anion Gap 7 7 9 BUN 42 H 41 H 41 H Creatinine 1.61 H 1.50 H 1.47 H Est GFR ( Amer) 40 L 44 L 45 L Glucose 151 H 103 73 L Calcium 7.3 L 7.2 L 7.6 L 11/30/19 12:23 Thigh - Abscess Gram Stain - Final 11/30/19 12:23 Thigh - Abscess Wound Culture - Final Enterococcus Faecalis(Group D) Prevotella Species Finegoldia Species 11/30/19 11/30/19 11/30/19 01:54 01:54 01:54 Creatine Kinase 115 CK-MB (CK-2) 1.01 Troponin I < 0.012 NT-Pro-B Natriuret Pep 330 H 11/30/19 11/30/19 11/30/19 07:45 07:45 15:20 Creatine Kinase 125 100 CK-MB (CK-2) 1.26 Troponin I < 0.012 NT-Pro-B Natriuret Pep 11/30/19 15:20 Creatine Kinase CK-MB (CK-2) 0.62 Troponin I 0.013 NT-Pro-B Natriuret Pep Impressions: Lower Extremity CT 11/29/19 20:30 IMPRESSION: Subcutaneous inflammatory changes and skin thickening of the medial left thigh consistent with cellulitis. Underlying soft tissue gas without a discrete/defined abscess. Gas-forming organism is considered. TECHNICAL DOCUMENTATION: Quality ID # [id number]: Final reports with documentation of one or more dose reduction techniques (e.g., Automated exposure control, adjustment of the mA and/or kV according to patient size, use of iterative reconstruction technique) copyright 2011 [employer]- All Rights Reserved Assessment & Plan - Diagnosis (1) Necrotizing fasciitis Is this a current diagnosis for this admission?: Yes Plan: The culture from the abscess grew Enterococcus faecalis sensitive to ampicillin, the antibiotic was changed to ampicillin from Zosyn (2) Abscess of left thigh Is this a current diagnosis for this admission?: Yes Plan: Status post incision and drainage (3) Diabetic hyperosmolar non-ketotic state Is this a current diagnosis for this admission?: Yes Plan: Continue IV fluid and insulin regimen (4) Morbid obesity due to excess calories Is this a current diagnosis for this admission?: Yes (5) Depression Qualifiers: Depression Type: major depressive disorder Major depression recurrence: recurrent Active/Remission status: currently active Major depression episode severity: severe Psychotic features: without psychotic features Qualified Code(s): F33.2 - Major depressive disorder, recurrent severe without psychotic features Is this a current diagnosis for this admission?: Yes (6) Psoriasis Is this a current diagnosis for this admission?: Yes (7) Acute kidney injury Is this a current diagnosis for this admission?: Yes Plan: ImprovING with fluid therapy - Time Time Spent with patient: 25-34 minutes
[2019-12-02 21:27] LABS: ANION GAP 10 (5-19); BLOOD UREA NITROGEN 40 mg/dL (7-20); CALCIUM 7.3 mg/dL (8.4-10.2); CARBON DIOXIDE 20 mmol/L (22-30); CHLORIDE 107 mmol/L (98-107); GLUCOSE 134 mg/dL (75-110); POTASSIUM 4.1 mmol/L (3.6-5.0)
[2019-12-02] MEDS: PRAMIPEXOLE DI-HCL 0.25 MG TABLET PO SCH (22:16)
[2019-12-02] MEDS: KETOROLAC TROMETHAMINE INJ/PF 30 MG/1 ML SDV IV SCH (22:17)
[2019-12-02] MEDS: MORPHINE SULFATE 10 MG/ML INJ IV PRN (22:18)
[2019-12-03] MEDS: AMPICILLIN SODIUM 1 GM in NORMAL SALINE 50 ML IV SCH ×5 (00:11→23:20)
[2019-12-03 02:01] LABS: ANION GAP 8 (5-19); BLOOD UREA NITROGEN 40 mg/dL (7-20); CARBON DIOXIDE 18 mmol/L (22-30); CHLORIDE 110 mmol/L (98-107); GLUCOSE 90 mg/dL (75-110); POTASSIUM 4.1 mmol/L (3.6-5.0)
[2019-12-03 02:09] LABS: CALCIUM 7.1 mg/dL (8.4-10.2)
[2019-12-03] MEDS: GABAPENTIN 300 MG CAPSULE PO SCH ×3 (06:08→21:26)
[2019-12-03] MEDS: PANTOPRAZOLE SODIUM 20 MG TABLET.DR PO SCH (06:08)
[2019-12-03] MEDS: MORPHINE SULFATE 10 MG/ML INJ IV PRN (06:09)
[2019-12-03] MEDS: KETOROLAC TROMETHAMINE INJ/PF 30 MG/1 ML SDV IV SCH ×3 (06:09→21:26)
[2019-12-03] MEDS: INSULIN GLARGINE,HUM.REC.ANLOG 1,000 UNIT/10 ML VIAL SUBCUT SCH ×2 (06:13→17:16)
[2019-12-03] MEDS: NORMAL SALINE 1000 ML 1,000 ML IV PRN ×2 (06:34→17:16)
[2019-12-03 06:50] LABS: ABSOLUTE BASOPHILS # (AUTO) 0.1 10^3/uL (0.0-0.2); ABSOLUTE EOSINOPHILS # (AUTO) 0.3 10^3/uL (0.0-0.6); ABSOLUTE LYMPHOCYTES (AUTO) 1.9 10^3/uL (0.5-4.7); ABSOLUTE MONOCYTES (AUTO) 1.6 10^3/uL (0.1-1.4); ABSOLUTE NEUT (AUTO) 10.7 10^3/uL (1.7-8.2); BASOPHILS % (AUTO) 0.5 % (0-2); EOSINOPHILS % (AUTO) 2.2 % (0-6); HEMOGLOBIN 11.5 g/dL (12.0-15.5); LYMPHOCYTES % (AUTO) 13.1 % (13-45); MEAN CORPUSCULAR HEMOGLOBIN 31.7 pg (27.0-33.4); MEAN CORPUSCULAR HGB CONC 33.9 g/dL (32.0-36.0); MEAN CORPUSCULAR VOLUME 93 fl (80-97); MONOCYTES % (AUTO) 11.1 % (3-13); RED BLOOD COUNT 3.64 10^6/uL (3.72-5.28); RED CELL DISTRIBUTION WIDTH 15.1 % (11.5-14.0); SEGMENTED NEUTROPHILS % (AUTO) 73.1 % (42-78); TOTAL CELLS COUNTED % (AUTO) 100 %; WHITE BLOOD COUNT 14.7 10^3/uL (4.0-10.5)
[2019-12-03 07:04] LABS: ANION GAP 9 (5-19); BLOOD UREA NITROGEN 40 mg/dL (7-20); CALCIUM 7.2 mg/dL (8.4-10.2); CARBON DIOXIDE 16 mmol/L (22-30); CHLORIDE 112 mmol/L (98-107); GLUCOSE 82 mg/dL (75-110); POTASSIUM 4.3 mmol/L (3.6-5.0)
[2019-12-03 07:25] LABS: PLATELET COUNT 175 10^3/uL (150-450)
[2019-12-03] MEDS: INSULIN LISPRO 100 UNIT/ML 3 ML VIAL SUBCUT SCH ×7 (08:06→21:29)
--- NOTE | 2019-12-03 09:24 | PDOC PROGRESS REPORT ---
Subjective Progress Note for:: 12/03/19 Subjective:: Patient was admitted for the left thigh abscess and necrotizing fasciitis status post incision and drainage by surgery Patient is currently on IV antibiotics patient also on IV pain medications Patient also have a type 2 diabetes with hyper glycemia currently getting better Patient's denied any chest pain no short of breath Patient is complaining of some dizziness due to the pain medications but other than that no headache Patient's denied any weakness Patient is alert awake oriented x4 Patient is also complaining of abdominal wall area mild itching which patient also have a ongoing problem due to the candidiasis and patient using the Lotrisone creams at home's Reason For Visit: ? NECROTIZING FASCIITIS,NKDM Physical Exam Vital Signs: Temp Pulse Resp BP Pulse Ox 97.9 F 81 18 107/67 93 12/03/19 07:13 12/03/19 07:13 12/03/19 07:13 12/03/19 07:13 12/03/19 07:13 Intake & Output 12/02/19 12/03/19 12/04/19 06:59 06:59 06:59 Intake Total 4005 2950 Output Total 1000 920 Balance 3005 2030 Weight 133 kg 131.8 kg General appearance: PRESENT: no acute distress, well-developed, well-nourished Head exam: PRESENT: atraumatic, normocephalic Eye exam: PRESENT: conjunctiva pink, EOMI, PERRLA. ABSENT: scleral icterus Ear exam: PRESENT: normal external ear exam Mouth exam: PRESENT: moist, tongue midline Neck exam: PRESENT: full ROM. ABSENT: carotid bruit, JVD, lymphadenopathy, thyromegaly Respiratory exam: PRESENT: clear to auscultation lamar Cardiovascular exam: PRESENT: RRR. ABSENT: diastolic murmur, rubs, systolic mu rmur Pulses: PRESENT: normal dorsalis pedis pul, +2 pedal pulses bilateral Vascular exam: PRESENT: normal capillary refill GI/Abdominal exam: PRESENT: normal bowel sounds, soft. ABSENT: distended, guarding, mass, organolmegaly, rebound, tenderness Additonal comments: Left thigh the dressing is intact and in in the abdominal wall some mild candidiasis is present Rectal exam: PRESENT: deferred Neurological exam: PRESENT: alert, awake, oriented to person, oriented to place, oriented to time, oriented to situation, CN II-XII grossly intact. ABSENT: motor sensory deficit Psychiatric exam: PRESENT: appropriate affect, normal mood. ABSENT: homicidal ideation, suicidal ideation Skin exam: PRESENT: dry, intact, warm. ABSENT: cyanosis, rash Results Laboratory Results: 12/03/19 05:38 12/03/19 05:38 12/02/19 12/02/19 12/02/19 09:45 15:30 21:00 WBC RBC Hgb Hct MCV MCH MCHC RDW Plt Count Seg Neutrophils % Sodium 134.8 L 137.1 136.9 L Potassium 3.9 3.9 4.1 Chloride 107 105 107 Carbon Dioxide 21 L 23 20 L Anion Gap 7 9 10 BUN 41 H 41 H 40 H Creatinine 1.50 H 1.47 H 1.40 H Est GFR ( Amer) 44 L 45 L 47 L Glucose 103 73 L 134 H Calcium 7.2 L 7.6 L 7.3 L 12/03/19 12/03/19 12/03/19 01:28 05:38 05:38 WBC 14.7 H RBC 3.64 L Hgb 11.5 L Hct 34.0 L MCV 93 MCH 31.7 MCHC 33.9 RDW 15.1 H Plt Count 175 Seg Neutrophils % 73.1 Sodium 135.6 L 137.1 Potassium 4.1 4.3 Chloride 110 H 112 H Carbon Dioxide 18 L 16 L Anion Gap 8 9 BUN 40 H 40 H Creatinine 1.35 H 1.33 H Est GFR ( Amer) 49 L 50 L Glucose 90 82 Calcium 7.1 L 7.2 L 11/30/19 12:23 Thigh - Abscess Gram Stain - Final 11/30/19 12:23 Thigh - Abscess Wound Culture - Final Enterococcus Faecalis(Group D) Prevotella Species Fineabigailia Species 11/30/19 11/30/19 11/30/19 01:54 01:54 01:54 Creatine Kinase 115 CK-MB (CK-2) 1.01 Troponin I < 0.012 NT-Pro-B Natriuret Pep 330 H 11/30/19 11/30/19 11/30/19 07:45 07:45 15:20 Creatine Kinase 125 100 CK-MB (CK-2) 1.26 Troponin I < 0.012 NT-Pro-B Natriuret Pep 11/30/19 15:20 Creatine Kinase CK-MB (CK-2) 0.62 Troponin I 0.013 NT-Pro-B Natriuret Pep Impressions: Lower Extremity CT 11/29/19 20:30 IMPRESSION: Subcutaneous inflammatory changes and skin thickening of the medial left thigh consistent with cellulitis. Underlying soft tissue gas without a discrete/defined abscess. Gas-forming organism is considered. TECHNICAL DOCUMENTATION: Quality ID # [id number]: Final reports with documentation of one or more dose reduction techniques (e.g., Automated exposure control, adjustment of the mA and/or kV according to patient size, use of iterative reconstruction technique) copyright 2011 [employer]- All Rights Reserved Assessment & Plan - Diagnosis (1) Abscess of left thigh Is this a current diagnosis for this admission?: Yes Plan: Status post incision and drainage (2) Diabetic hyperosmolar non-ketotic state Is this a current diagnosis for this admission?: Yes Plan: Continue IV fluid and insulin regimen (4) Necrotizing fasciitis Is this a current diagnosis for this admission?: Yes Plan: The culture from the abscess grew Enterococcus faecalis sensitive to ampicillin, the antibiotic was changed to ampicillin from Zosyn (5) Psoriasis Is this a current diagnosis for this admission?: Yes (6) Hypertension Qualifiers: Hypertension type: essential hypertension Qualified Code(s): I10 - Essential (primary) hypertension Is this a current diagnosis for this admission?: Yes (7) Leukocytosis Qualifiers: Leukocytosis type: other Qualified Code(s): D72.828 - Other elevated white blood cell count Is this a current diagnosis for this admission?: Yes (8) GERD (gastroesophageal reflux disease) Qualifiers: Esophagitis presence: without esophagitis Qualified Code(s): K21.9 - Gastro-esophageal reflux disease without esophagitis Is this a current diagnosis for this admission?: Yes - Time Time Spent with patient: 25-34 minutes - Plan Summary Plan Summary: Continues to IV antibiotic we will repeat the blood work tomorrow morning We will add the nystatin creams
[2019-12-03] MEDS: FAMOTIDINE 20 MG TABLET PO SCH ×2 (10:57→21:26)
[2019-12-03] MEDS: NYSTATIN CREAM 15 GM TP SCH ×3 (10:57→21:28)
[2019-12-03] MEDS: ENOXAPARIN SODIUM INJ 40 MG/0.4 ML DISP.SYRIN SUBCUT SCH (10:57)
[2019-12-03] MEDS: PIOGLITAZONE HCL 15 MG TABLET PO SCH (10:57)
[2019-12-03 11:01] LABS: ANION GAP 7 (5-19); BLOOD UREA NITROGEN 40 mg/dL (7-20); CALCIUM 7.1 mg/dL (8.4-10.2); CARBON DIOXIDE 21 mmol/L (22-30); CHLORIDE 108 mmol/L (98-107); GLUCOSE 139 mg/dL (75-110); POTASSIUM 4.4 mmol/L (3.6-5.0)
--- NOTE | 2019-12-03 13:22 | PDOC PROGRESS REPORT ---
Subjective Progress Note for:: 12/03/19 Reason For Visit: ? NECROTIZING FASCIITIS,NKDM Physical Exam Vital Signs: Temp Pulse Resp BP Pulse Ox 97.5 F 58 L 18 115/65 93 12/03/19 11:16 12/03/19 11:16 12/03/19 11:16 12/03/19 11:16 12/03/19 11:16 Intake & Output 12/02/19 12/03/19 12/04/19 06:59 06:59 06:59 Intake Total 4005 2950 Output Total 1000 920 Balance 3005 2029 Weight 133 kg 131.8 kg Results Laboratory Results: 12/03/19 05:38 12/02/19 12/02/19 12/03/19 15:30 21:00 01:28 WBC RBC Hgb Hct MCV MCH MCHC RDW Plt Count Seg Neutrophils % Sodium 137.1 136.9 L 135.6 L Potassium 3.9 4.1 4.1 Chloride 105 107 110 H Carbon Dioxide 23 20 L 18 L Anion Gap 9 10 8 BUN 41 H 40 H 40 H Creatinine 1.47 H 1.40 H 1.35 H Est GFR ( Amer) 45 L 47 L 49 L Glucose 73 L 134 H 90 Calcium 7.6 L 7.3 L 7.1 L 12/03/19 12/03/19 12/03/19 05:38 05:38 09:59 WBC 14.7 H RBC 3.64 L Hgb 11.5 L Hct 34.0 L MCV 93 MCH 31.7 MCHC 33.9 RDW 15.1 H Plt Count 175 Seg Neutrophils % 73.1 Sodium 137.1 136.4 L Potassium 4.3 4.4 Chloride 112 H 108 H Carbon Dioxide 16 L 21 L Anion Gap 9 7 BUN 40 H 40 H Creatinine 1.33 H 1.20 Est GFR ( Amer) 50 L 57 L Glucose 82 139 H Calcium 7.2 L 7.1 L 11/30/19 12:23 Thigh - Abscess Gram Stain - Final 11/30/19 12:23 Thigh - Abscess Wound Culture - Final Enterococcus Faecalis(Group D) Prevotella Species Tarikia Species 11/30/19 11/30/19 11/30/19 01:54 01:54 01:54 Creatine Kinase 115 CK-MB (CK-2) 1.01 Troponin I < 0.012 NT-Pro-B Natriuret Pep 330 H 11/30/19 11/30/19 11/30/19 07:45 07:45 15:20 Creatine Kinase 125 100 CK-MB (CK-2) 1.26 Troponin I < 0.012 NT-Pro-B Natriuret Pep 11/30/19 15:20 Creatine Kinase CK-MB (CK-2) 0.62 Troponin I 0.013 NT-Pro-B Natriuret Pep Impressions: Lower Extremity CT 11/29/19 20:30 IMPRESSION: Subcutaneous inflammatory changes and skin thickening of the medial left thigh consistent with cellulitis. Underlying soft tissue gas without a discrete/defined abscess. Gas-forming organism is considered. TECHNICAL DOCUMENTATION: Quality ID # [id number]: Final reports with documentation of one or more dose reduction techniques (e.g., Automated exposure control, adjustment of the mA and/or kV according to patient size, use of iterative reconstruction technique) copyright 2011 [employer]- All Rights Reserved Assessment & Plan - Diagnosis (1) Abscess of left thigh Is this a current diagnosis for this admission?: Yes (2) Hyperglycemia due to type 2 diabetes mellitus Qualifiers: Diabetes mellitus [facility] insulin use: unspecified [employer]termin[employer] insulin use s tatus Qualified Code(s): E11.65 - Type 2 diabetes mellitus with hyperglycemia Is this a current diagnosis for this admission?: Yes - Plan Summary Plan Summary: 54-year-old diabetic female status post debridement for necrotizing soft tissue infection of the left thigh. The patient appears stable today. She is afebrile. Her vital signs are stable. I have examined her wound. She has minimal erythema present. There is no significant induration. Continue with damp to dry dressing changes 3 times daily. We will continue to monitor the wound for evidence of ongoing necrosis/infection. The patient may be a candidate for wound VAC, once the wound is stable. Surgery will continue to follow this patient very closely with you.
[2019-12-03 13:23] LABS: ANION GAP 8 (5-19); BLOOD UREA NITROGEN 41 mg/dL (7-20); CALCIUM 7.3 mg/dL (8.4-10.2); CARBON DIOXIDE 20 mmol/L (22-30); CHLORIDE 109 mmol/L (98-107); GLUCOSE 138 mg/dL (75-110); POTASSIUM 4.6 mmol/L (3.6-5.0)
[2019-12-03] MEDS: OXYCODONE HCL IR 5 MG TABLET PO PRN (13:29)
[2019-12-03 17:29] LABS: ANION GAP 5 (5-19); BLOOD UREA NITROGEN 39 mg/dL (7-20); CARBON DIOXIDE 23 mmol/L (22-30); CHLORIDE 109 mmol/L (98-107); GLUCOSE 137 mg/dL (75-110); POTASSIUM 4.4 mmol/L (3.6-5.0)
[2019-12-03] MEDS: HYDROCODONE/ACETAMINOPHEN 10-325 MG TABLET PO PRN (17:30)
[2019-12-03 17:45] LABS: CALCIUM 7.1 mg/dL (8.4-10.2)
[2019-12-03] MEDS: PRAMIPEXOLE DI-HCL 0.25 MG TABLET PO SCH (21:25)
[2019-12-04] MEDS: HYDROCODONE/ACETAMINOPHEN 10-325 MG TABLET PO PRN ×2 (01:07→12:47)
[2019-12-04] MEDS: NORMAL SALINE 1000 ML 1,000 ML IV PRN ×2 (01:54→20:56)
[2019-12-04] MEDS: AMPICILLIN SODIUM 1 GM in NORMAL SALINE 50 ML IV SCH ×3 (06:05→17:31)
[2019-12-04] MEDS: INSULIN GLARGINE,HUM.REC.ANLOG 1,000 UNIT/10 ML VIAL SUBCUT SCH ×2 (06:05→17:31)
[2019-12-04] MEDS: NYSTATIN CREAM 15 GM TP SCH ×3 (06:06→23:26)
[2019-12-04] MEDS: GABAPENTIN 300 MG CAPSULE PO SCH ×3 (06:06→21:50)
[2019-12-04] MEDS: PANTOPRAZOLE SODIUM 20 MG TABLET.DR PO SCH (06:06)
[2019-12-04] MEDS: KETOROLAC TROMETHAMINE INJ/PF 30 MG/1 ML SDV IV SCH ×2 (06:06→13:45)
[2019-12-04 07:08] LABS: HEMATOCRIT 36.8 % (36.0-47.0); HEMOGLOBIN 12.3 g/dL (12.0-15.5); MEAN CORPUSCULAR HGB CONC 33.5 g/dL (32.0-36.0); MEAN CORPUSCULAR VOLUME 95 fl (80-97); PLATELET COUNT 273 10^3/uL (150-450); RED BLOOD COUNT 3.86 10^6/uL (3.72-5.28); RED CELL DISTRIBUTION WIDTH 15.2 % (11.5-14.0); WHITE BLOOD COUNT 9.3 10^3/uL (4.0-10.5)
[2019-12-04 07:16] LABS: ANION GAP 7 (5-19); BLOOD UREA NITROGEN 40 mg/dL (7-20); CALCIUM 7.6 mg/dL (8.4-10.2); CARBON DIOXIDE 22 mmol/L (22-30); CHLORIDE 109 mmol/L (98-107); GLUCOSE 136 mg/dL (75-110); POTASSIUM 4.5 mmol/L (3.6-5.0)
[2019-12-04 07:52] LABS: ABSOLUTE LYMPHOCYTES# (MANUAL) 1.9 10^3/uL (0.5-4.7); ABSOLUTE MONOCYTES # (MANUAL) 0.4 10^3/uL (0.1-1.4); BAND NEUTROPHILS % (MANUAL) 3 % (3-5); BASOPHILS % (MANUAL) 1 % (0-2); EOSINOPHILS % (MANUAL) 3 % (0-6); LYMPHOCYTES % (MANUAL) 18 % (13-45); METAMYELOCYTES % (MANUAL) 1 % (0-1); MONOCYTES % (MANUAL) 4 % (3-13); SEGMENTED NEUTROPHILS % (MAN) 68 % (42-78); TOTAL CELLS COUNTED 100
[2019-12-04 07:53] LABS: ANISOCYTOSIS SLIGHT
[2019-12-04 07:54] LABS: PLATELET CLUMPS PRESENT; PLATELET COMMENT ADEQUATE
[2019-12-04] MEDS: INSULIN LISPRO 100 UNIT/ML 3 ML VIAL SUBCUT SCH ×7 (08:18→21:48)
[2019-12-04] MEDS: PIOGLITAZONE HCL 15 MG TABLET PO SCH (09:33)
[2019-12-04] MEDS: FAMOTIDINE 20 MG TABLET PO SCH ×2 (09:33→21:50)
[2019-12-04] MEDS: ENOXAPARIN SODIUM INJ 40 MG/0.4 ML DISP.SYRIN SUBCUT SCH (09:34)
--- NOTE | 2019-12-04 09:34 | PDOC PROGRESS REPORT ---
Subjective Progress Note for:: 12/04/19 Subjective:: Patient is currently doing much better Patient's denied any chest pain no short of breath No dizziness No fever Patient's all blood work is stable Reason For Visit: ? NECROTIZING FASCIITIS,NKDM Physical Exam Vital Signs: Temp Pulse Resp BP Pulse Ox 97.8 F 78 18 124/48 L 99 12/04/19 07:12 12/04/19 07:12 12/04/19 07:12 12/04/19 07:12 12/04/19 07:12 Intake & Output 12/03/19 12/04/19 12/05/19 06:59 06:59 06:59 Intake Total 2950 3500 Output Total 920 575 Balance 2030 2925 Weight 131.8 kg 145.5 kg General appearance: PRESENT: no acute distress, well-developed, well-nourished Head exam: PRESENT: atraumatic, normocephalic Eye exam: PRESENT: conjunctiva pink, EOMI, PERRLA. ABSENT: scleral icterus Ear exam: PRESENT: normal external ear exam Mouth exam: PRESENT: moist, tongue midline Neck exam: PRESENT: full ROM. ABSENT: carotid bruit, JVD, lymphadenopathy, thyromegaly Respiratory exam: PRESENT: clear to auscultation lamar Cardiovascular exam: PRESENT: RRR. ABSENT: diastolic murmur, rubs, systolic murmur Pulses: PRESENT: normal dorsalis pedis pul, +2 pedal pulses bilateral Vascular exam: PRESENT: normal capillary refill GI/Abdominal exam: PRESENT: normal bowel sounds, soft. ABSENT: distended, guarding, mass, organolmegaly, rebound, tenderness Additonal comments: Left thigh dressing is intact Rectal exam: PRESENT: deferred Neurological exam: PRESENT: alert, awake, oriented to person, oriented to place, oriented to time, oriented to situation, CN II-XII grossly intact. ABSENT: motor sensory deficit Psychiatric exam: PRESENT: appropriate affect, normal mood. ABSENT: homicidal ideation, suicidal ideation Skin exam: PRESENT: dry, intact, warm. ABSENT: cyanosis, rash Results Laboratory Results: 12/04/19 06:49 12/04/19 06:49 12/03/19 12/03/19 12/03/19 09:59 12:55 17:03 WBC RBC Hgb Hct MCV MCH MCHC RDW Plt Count Seg Neutrophils % Sodium 136.4 L 137.3 137.0 Potassium 4.4 4.6 4.4 Chloride 108 H 109 H 109 H Carbon Dioxide 21 L 20 L 23 Anion Gap 7 8 5 BUN 40 H 41 H 39 H Creatinine 1.20 1.35 H 1.40 H Est GFR ( Amer) 57 L 49 L 47 L Glucose 139 H 138 H 137 H Calcium 7.1 L 7.3 L 7.1 L 12/04/19 12/04/19 06:49 06:49 WBC 9.3 RBC 3.86 Hgb 12.3 Hct 36.8 MCV 95 MCH 32.0 MCHC 33.5 RDW 15.2 H Plt Count 273 Seg Neutrophils % Not Reportable Sodium 138.3 Potassium 4.5 Chloride 109 H Carbon Dioxide 22 Anion Gap 7 BUN 40 H Creatinine 1.34 H Est GFR ( Amer) 50 L Glucose 136 H Calcium 7.6 L 11/30/19 11/30/19 11/30/19 01:54 01:54 01:54 Creatine Kinase 115 CK-MB (CK-2) 1.01 Troponin I < 0.012 NT-Pro-B Natriuret Pep 330 H 11/30/19 11/30/19 11/30/19 07:45 07:45 15:20 Creatine Kinase 125 100 CK-MB (CK-2) 1.26 Troponin I < 0.012 NT-Pro-B Natriuret Pep 11/30/19 15:20 Creatine Kinase CK-MB (CK-2) 0.62 Troponin I 0.013 NT-Pro-B Natriuret Pep Impressions: Lower Extremity CT 11/29/19 20:30 IMPRESSION: Subcutaneous inflammatory changes and skin thickening of the medial left thigh consistent with cellulitis. Underlying soft tissue gas without a discrete/defined abscess. Gas-forming organism is considered. TECHNICAL DOCUMENTATION: Quality ID # [id number]: Final reports with documentation of one or more dose reduction techniques (e.g., Automated exposure control, adjustment of the mA and/or kV according to patient size, use of iterative reconstruction technique) copyright 2011 [employer]- All Rights Reserved Assessment & Plan - Diagnosis (1) Abscess of left thigh Is this a current diagnosis for this admission?: Yes Plan: As per surgery currently follow with the surgeon (2) Diabetic hyperosmolar non-ketotic state Is this a current diagnosis for this admission?: Yes Plan: Continue IV fluid and insulin regimen (3) Morbid obesity due to excess calories Is this a current diagnosis for this admission?: Yes (4) Necrotizing fasciitis Is this a current diagnosis for this admission?: Yes (5) Psoriasis Is this a current diagnosis for this admission?: Yes (6) Hypertension Qualifiers: Hypertension type: essential hypertension Qualified Code(s): I10 - Essential (primary) hypertension Is this a current diagnosis for this admission?: Yes (7) Leukocytosis Qualifiers: Leukocytosis type: other Qualified Code(s): D72.828 - Other elevated white blood cell count Is this a current diagnosis for this admission?: Yes (8) GERD (gastroesophageal reflux disease) Qualifiers: Esophagitis presence: without esophagitis Qualified Code(s): K21.9 - Gastro-esophageal reflux disease without esophagitis Is this a current diagnosis for this admission?: Yes - Time Time Spent with patient: 15-24 minutes Level of Care: IMCU Medications reviewed and adjusted accordingly: Yes Anticipated discharge: Home with Homehealth Within: Other - Plan Summary Plan Summary: Continues the IV antibiotic reduce the IV fluid to 60 cc/h patient's primary need a physical therapy evaluations
[2019-12-04] MEDS: OXYCODONE HCL IR 5 MG TABLET PO PRN (20:58)
--- NOTE | 2019-12-04 21:13 | PDOC PROGRESS REPORT ---
Subjective Progress Note for:: 12/04/19 Reason For Visit: ? NECROTIZING FASCIITIS,NKDM Physical Exam Vital Signs: Temp Pulse Resp BP Pulse Ox 97.7 F 77 22 H 145/58 H 98 12/04/19 20:07 12/04/19 20:07 12/04/19 20:07 12/04/19 20:07 12/04/19 20:07 Intake & Output 12/03/19 12/04/19 12/05/19 06:59 06:59 06:59 Intake Total 2950 3550 2230 Output Total 920 575 450 Balance 2030 2975 1780 Weight 131.8 kg 145.5 kg Results Laboratory Results: 12/04/19 06:49 12/04/19 06:49 12/04/19 12/04/19 06:49 06:49 WBC 9.3 RBC 3.86 Hgb 12.3 Hct 36.8 MCV 95 MCH 32.0 MCHC 33.5 RDW 15.2 H Plt Count 273 Seg Neutrophils % Not Reportable Sodium 138.3 Potassium 4.5 Chloride 109 H Carbon Dioxide 22 Anion Gap 7 BUN 40 H Creatinine 1.34 H Est GFR ( Amer) 50 L Glucose 136 H Calcium 7.6 L 11/30/19 11/30/19 11/30/19 01:54 01:54 01:54 Creatine Kinase 115 CK-MB (CK-2) 1.01 Troponin I < 0.012 NT-Pro-B Natriuret Pep 330 H 11/30/19 11/30/19 11/30/19 07:45 07:45 15:20 Creatine Kinase 125 100 CK-MB (CK-2) 1.26 Troponin I < 0.012 NT-Pro-B Natriuret Pep 11/30/19 15:20 Creatine Kinase CK-MB (CK-2) 0.62 Troponin I 0.013 NT-Pro-B Natriuret Pep Impressions: Lower Extremity CT 11/29/19 20:30 IMPRESSION: Subcutaneous inflammatory changes and skin thickening of the medial left thigh consistent with cellulitis. Underlying soft tissue gas without a discrete/defined abscess. Gas-forming organism is considered. TECHNICAL DOCUMENTATION: Quality ID # [id number]: Final reports with documentation of one or more dose reduction techniques (e.g., Automated exposure control, adjustment of the mA and/or kV according to patient size, use of iterative reconstruction technique) copyright 2010 [employer]- All Rights Reserved Assessment & Plan - Diagnosis (1) Abscess of left thigh Is this a current diagnosis for this admission?: Yes (2) Hyperglycemia due to type 2 diabetes mellitus Qualifiers: Diabetes mellitus [facility] insulin use: unspecified [facility] insulin use status Qualified Code(s): E11.65 - Type 2 diabetes mellitus with hyperglycemia Is this a current diagnosis for this admission?: Yes - Plan Summary Plan Summary: 54-year-old diabetic female status post debridement for necrotizing soft tissue infection of the left thigh. The patient appears stable today. She is afebrile. Her vital signs are stable. I have examined her wound. She has minimal erythema present. There is no significant induration. Continue with damp to dry dressing changes 3 times daily. We will continue to monitor the wound for evidence of ongoing necrosis/infection. Consult social worker assistant for wound VAC. Surgery will continue to follow this patient very closely with you.
[2019-12-04] MEDS: PRAMIPEXOLE DI-HCL 0.25 MG TABLET PO SCH (21:51)
[2019-12-05] MEDS: AMPICILLIN SODIUM 1 GM in NORMAL SALINE 50 ML IV SCH ×4 (02:15→17:42)
[2019-12-05] MEDS: OXYCODONE HCL IR 5 MG TABLET PO PRN ×2 (06:42→20:05)
[2019-12-05] MEDS: INSULIN GLARGINE,HUM.REC.ANLOG 1,000 UNIT/10 ML VIAL SUBCUT SCH ×2 (06:45→17:42)
[2019-12-05] MEDS: GABAPENTIN 300 MG CAPSULE PO SCH ×3 (06:45→22:04)
[2019-12-05] MEDS: PANTOPRAZOLE SODIUM 20 MG TABLET.DR PO SCH (06:45)
[2019-12-05] MEDS: NYSTATIN CREAM 15 GM TP SCH ×3 (06:48→22:04)
[2019-12-05] MEDS: INSULIN LISPRO 100 UNIT/ML 3 ML VIAL SUBCUT SCH ×7 (08:30→22:05)
--- NOTE | 2019-12-05 08:45 | PDOC PROGRESS REPORT ---
Subjective Progress Note for:: 12/05/19 Subjective:: feels ok Reason For Visit: ? NECROTIZING FASCIITIS,NKDM Physical Exam Vital Signs: Temp Pulse Resp BP Pulse Ox 97.2 F 91 22 H 143/60 H 99 12/04/19 23:41 12/05/19 07:00 12/04/19 23:41 12/04/19 23:41 12/04/19 23:41 Intake & Output 12/04/19 12/05/19 12/06/19 06:59 06:59 06:59 Intake Total 3550 2522 50 Output Total 575 750 Balance 2975 1772 50 Weight 145.5 kg 134.1 kg General appearance: PRESENT: no acute distress, morbidly obese Head exam: PRESENT: normocephalic Eye exam: PRESENT: EOMI Ear exam: PRESENT: normal external ear exam Mouth exam: PRESENT: moist Teeth exam: PRESENT: poor dentation Neck exam: PRESENT: full ROM Respiratory exam: PRESENT: clear to auscultation lamar Cardiovascular exam: PRESENT: RRR Pulses: PRESENT: normal radial pulses, normal femoral pulses Breast: PRESENT: Normal GI/Abdominal exam: PRESENT: soft Rectal exam: PRESENT: deferred Extremities exam: PRESENT: other - left groin/thigh wound, clean some staining over muscle c/o surgiceil Musculoskeletal exam: PRESENT: ambulatory Neurological exam: PRESENT: alert, awake, oriented to person, oriented to place Psychiatric exam: PRESENT: appropriate affect Skin exam: PRESENT: dry Results Laboratory Results: 12/04/19 06:49 12/04/19 06:49 11/30/19 00:44 Blood Blood Culture - Final NO GROWTH IN 5 DAYS 11/30/19 00:02 Blood Blood Culture - Final NO GROWTH IN 5 DAYS 11/30/19 11/30/19 11/30/19 01:54 01:54 01:54 Creatine Kinase 115 CK-MB (CK-2) 1.01 Troponin I < 0.012 NT-Pro-B Natriuret Pep 330 H 11/30/19 11/30/19 11/30/19 07:45 07:45 15:20 Creatine Kinase 125 100 CK-MB (CK-2) 1.26 Troponin I < 0.012 NT-Pro-B Natriuret Pep 11/30/19 15:20 Creatine Kinase CK-MB (CK-2) 0.62 Troponin I 0.013 NT-Pro-B Natriuret Pep Impressions: Lower Extremity CT 11/29/19 20:30 IMPRESSION: Subcutaneous inflammatory changes and skin thickening of the medial left thigh consistent with cellulitis. Underlying soft tissue gas without a discrete/defined abscess. Gas-forming organism is considered. TECHNICAL DOCUMENTATION: Quality ID # [id number]: Final reports with documentation of one or more dose reduction techniques (e.g., Automated exposure control, adjustment of the mA and/or kV according to patient size, use of iterative reconstruction technique) copyright 2011 [employer]- All Rights Reserved Assessment & Plan - Plan Summary Plan Summary: s/p incision/debridment of left groin wound now clean, granulation recommend wound vac after wound vac placed, pt can be discharged home with surgical clinic f/u.
[2019-12-05] MEDS: ENOXAPARIN SODIUM INJ 40 MG/0.4 ML DISP.SYRIN SUBCUT SCH (09:51)
[2019-12-05] MEDS: FAMOTIDINE 20 MG TABLET PO SCH ×2 (09:51→22:04)
[2019-12-05] MEDS: PIOGLITAZONE HCL 15 MG TABLET PO SCH (09:51)
--- NOTE | 2019-12-05 20:25 | PDOC PROGRESS REPORT ---
Subjective Progress Note for:: 12/05/19 Subjective:: Patient seen by the bedside, wound VAC recommended, Reason For Visit: ? NECROTIZING FASCIITIS,NKDM Physical Exam Vital Signs: Temp Pulse Resp BP Pulse Ox 98.4 F 86 18 155/68 H 97 12/05/19 16:24 12/05/19 16:24 12/05/19 16:24 12/05/19 16:24 12/05/19 16:24 Intake & Output 12/04/19 12/05/19 12/06/19 06:59 06:59 06:59 Intake Total 3550 6592 2011 Output Total 575 455 550 Balance 2975 1772 1462 Weight 145.5 kg 134.1 kg 134.1 kg General appearance: PRESENT: no acute distress Eye exam: PRESENT: PERRLA Respiratory exam: PRESENT: clear to auscultation lamar Cardiovascular exam: PRESENT: +S2 Murmur grade: 3 Neurological exam: PRESENT: alert Results Laboratory Results: 12/04/19 06:49 12/04/19 06:49 12/02/19 14:17 Groin - Left Gram Stain - Final 11/30/19 00:44 Blood Blood Culture - Final NO GROWTH IN 5 DAYS 11/30/19 00:02 Blood Blood Culture - Final NO GROWTH IN 5 DAYS 11/30/19 11/30/19 11/30/19 01:54 01:54 01:54 Creatine Kinase 115 CK-MB (CK-2) 1.01 Troponin I < 0.012 NT-Pro-B Natriuret Pep 330 H 11/30/19 11/30/19 11/30/19 07:45 07:45 15:20 Creatine Kinase 125 100 CK-MB (CK-2) 1.26 Troponin I < 0.012 NT-Pro-B Natriuret Pep 11/30/19 15:20 Creatine Kinase CK-MB (CK-2) 0.62 Troponin I 0.013 NT-Pro-B Natriuret Pep Impressions: Lower Extremity CT 11/29/19 20:30 IMPRESSION: Subcutaneous inflammatory changes and skin thickening of the medial left thigh consistent with cellulitis. Underlying soft tissue gas without a discrete/defined abscess. Gas-forming organism is considered. TECHNICAL DOCUMENTATION: Quality ID # 436: Final reports with documentation of one or more dose reduction techniques (e.g., Automated exposure control, adjustment of the mA and/or kV according to patient size, use of iterative reconstruction technique) copyright 2010 [employer]- All Rights Reserved Assessment & Plan - Diagnosis (1) Necrotizing fasciitis Is this a current diagnosis for this admission?: Yes (2) Abscess of left thigh Is this a current diagnosis for this admission?: Yes (3) Diabetic hyperosmolar non-ketotic state Is this a current diagnosis for this admission?: Yes (4) Morbid obesity due to excess calories Is this a current diagnosis for this admission?: Yes (5) Depression Qualifiers: Depression Type: major depressive disorder Major depression recurrence: recurrent Active/Remission status: currently active Major depression episode severity: severe Psychotic features: without psychotic features Qualified Code(s): F33.2 - Major depressive disorder, recurrent severe without psychotic features Is this a current diagnosis for this admission?: Yes (6) Psoriasis Is this a current diagnosis for this admission?: Yes (7) Acute kidney injury Is this a current diagnosis for this admission?: Yes - Time Time Spent with patient: 15-24 minutes Level of Care: IMCU
[2019-12-05] MEDS: NORMAL SALINE 1000 ML 1,000 ML IV PRN (21:00)
[2019-12-05] MEDS: PRAMIPEXOLE DI-HCL 0.25 MG TABLET PO SCH (22:04)
[2019-12-06] MEDS: AMPICILLIN SODIUM 1 GM in NORMAL SALINE 50 ML IV SCH ×3 (00:45→14:01)
[2019-12-06] MEDS: MORPHINE SULFATE 10 MG/ML INJ IV PRN (02:01)
[2019-12-06] MEDS: INSULIN GLARGINE,HUM.REC.ANLOG 1,000 UNIT/10 ML VIAL SUBCUT SCH ×2 (05:14→05:36)
[2019-12-06] MEDS: OXYCODONE HCL IR 5 MG TABLET PO PRN (05:15)
[2019-12-06] MEDS: PANTOPRAZOLE SODIUM 20 MG TABLET.DR PO SCH (05:16)
[2019-12-06] MEDS: GABAPENTIN 300 MG CAPSULE PO SCH ×2 (05:16→16:00)
[2019-12-06] MEDS: NYSTATIN CREAM 15 GM TP SCH ×2 (05:16→16:03)
[2019-12-06] MEDS: INSULIN LISPRO 100 UNIT/ML 3 ML VIAL SUBCUT SCH ×6 (09:28→18:54)
[2019-12-06] MEDS: PIOGLITAZONE HCL 15 MG TABLET PO SCH (09:46)
--- NOTE | 2019-12-06 10:03 | PDOC PROGRESS REPORT ---
Subjective Progress Note for:: 12/06/19 Reason For Visit: ? NECROTIZING FASCIITIS,NKDM Physical Exam Vital Signs: Temp Pulse Resp BP Pulse Ox 98.9 F 75 18 111/61 96 12/06/19 03:40 12/06/19 07:00 12/06/19 03:40 12/06/19 03:40 12/06/19 03:40 Intake & Output 12/05/19 12/06/19 12/07/19 06:59 06:59 06:59 Intake Total 2522 3400 Output Total 750 1150 Balance 1772 2250 Weight 134.1 kg 134.1 kg Results Laboratory Results: 12/04/19 06:49 12/04/19 06:49 12/02/19 14:17 Groin - Left Gram Stain - Final 12/02/19 14:17 Groin - Left Wound Culture - Final Enterococcus Faecalis(Group D) C.albicans/C.dubliniensis Finegoldia Species 11/30/19 11/30/19 11/30/19 01:54 01:54 01:54 Creatine Kinase 115 CK-MB (CK-2) 1.01 Troponin I < 0.012 NT-Pro-B Natriuret Pep 330 H 11/30/19 11/30/19 11/30/19 07:45 07:45 15:20 Creatine Kinase 125 100 CK-MB (CK-2) 1.26 Troponin I < 0.012 NT-Pro-B Natriuret Pep 11/30/19 15:20 Creatine Kinase CK-MB (CK-2) 0.62 Troponin I 0.013 NT-Pro-B Natriuret Pep Impressions: Lower Extremity CT 11/29/19 20:30 IMPRESSION: Subcutaneous inflammatory changes and skin thickening of the medial left thigh consistent with cellulitis. Underlying soft tissue gas without a discrete/defined abscess. Gas-forming organism is considered. TECHNICAL DOCUMENTATION: Quality ID # 436: Final reports with documentation of one or more dose reduction techniques (e.g., Automated exposure control, adjustment of the mA and/or kV according to patient size, use of iterative reconstruction technique) copyright 2011 [employer]- All Rights Reserved Assessment & Plan - Diagnosis (1) Abscess of left thigh Is this a current diagnosis for this admission?: Yes (2) Hyperglycemia due to type 2 diabetes mellitus Qualifiers: Diabetes mellitus buttermaker helper insulin use: unspecified buttermaker helper insulin use status Qualified Code(s): E11.65 - Type 2 diabetes mellitus with hyperglycemia Is this a current diagnosis for this admission?: Yes - Plan Summary Plan Summary: 54-year-old diabetic female status post debridement for necrotizing soft tissue infection of the left thigh. The patient appears stable today. She is afebrile. Her vital signs are stable. Continue with damp to dry dressing changes 3 times daily for now. Awaiting home wound VAC. Surgery will continue to follow this patient very closely with you. As soon as wound VAC arrives, the patient can be discharged from a surgical standpoint.
[2019-12-06] MEDS: FAMOTIDINE 20 MG TABLET PO SCH (10:36)
[2019-12-06] MEDS: ENOXAPARIN SODIUM INJ 40 MG/0.4 ML DISP.SYRIN SUBCUT SCH (10:39)
--- NOTE | 2019-12-06 17:34 | Operative Report ---
Nonrecallable Operative Report DATE OF SURGERY: 12/06/19 PREOPERATIVE DIAGNOSIS: Large wound of the left upper thigh, status post debridement for necrotizing soft tissue infection. POSTOPERATIVE DIAGNOSIS: Same as above OPERATION: Placement of negative pressure wound management system over a large, full-thickness left upper thigh wound (20 cm x 6 cm x 5 cm). SURGEON: ANJUM LARA ANESTHESIA: Other - none TISSUE REMOVED OR ALTERED: none COMPLICATIONS: none ESTIMATED BLOOD LOSS: none PROCEDURE: Drains/implants: Negative pressure wound management system applied to left upper thigh. Procedure in detail: After informed consent was obtained from the patient, she was laid in the supine position in the hospital room. The old wound VAC was removed, and the new negative pressure wound management system was applied. First, the black granu-foam sponge was cut to size. It was inserted into the wound. It was covered with the occlusive dressing. Next the suction disc was applied, and negative pressure was administered. Good suction and seal was noted. At this time the procedure was concluded. All sponge, instrument, and needle counts were correct. Patient tolerated the procedure well. Condition: Stable.
[2019-12-06 19:28] VITALS: BP 143/58
--- NOTE | 2019-12-06 20:07 | PDOC DISCHARGE SUMMARY ---
Impression - Admit/DC Date/PCP Admission Date/Primary Care Provider: 11/29/19 23:58 GRANT PIERRE MD Discharge Date: 12/06/19 - Discharge Diagnosis (1) Necrotizing fasciitis Is this a current diagnosis for this admission?: Yes (2) Abscess of left thigh Is this a current diagnosis for this admission?: Yes (3) Diabetic hyperosmolar non-ketotic state Is this a current diagnosis for this admission?: Yes (4) Morbid obesity due to excess calories Is this a current diagnosis for this admission?: Yes (5) Depression Is this a current diagnosis for this admission?: Yes (6) Psoriasis Is this a current diagnosis for this admission?: Yes (7) Acute kidney injury Is this a current diagnosis for this admission?: Yes - Additional Information Resuscitation Status: Full Code Discharge Diet: Diabetic Discharge Activity: Activity As Tolerated Referrals: GRANT PIERRE MD [Primary Care Provider] - 12/13/19 9:15 am ANJUM LARA MD [ACTIVE STAFF] - 12/15/19 9:15 am Prescriptions: Ampicillin Trihydrate [Princepen 500 mg Capsule] 1 cap PO Q8H #30 cap Home Medications: Canagliflozin/Metformin HCl [Invokamet 150-1,000 mg Tablet] 1 tab PO BID 04/12/17 Insulin Aspart [Novolog Flexpen] 24 units SUBCUT MEALS 04/12/17 Insulin Glargine,Hum.rec.anlog [Lantus Solostar] 90 units SUBCUT Q12 04/12/17 Gabapentin [Neurontin 300 mg Capsule] 300 mg PO Q8 08/11/19 Methotrexate Sodium [Rheumatrex 2.5 mg Tablet] 7.5 mg PO PILLAI@1000 08/11/19 Omeprazole 20 mg PO DAILY 08/11/19 Pioglitazone HCl [Actos 15 mg Tablet] 1 tab PO DAILY 08/11/19 Pramipexole Di-HCl [Pramipexole Dihydrochloride] 0.125 mg PO QHS 08/11/19 Albuterol Sulfate [Proair HFA Inhalation Aerosol 8.5 gm MDI] 2 puff IH Q4H PRN 11/30/19 Albuterol Sulfate [Ventolin 0.083% Neb 2.5 mg/3 mL Ampul] 1 vial NEB Q8HP PRN 11/30/19 Clotrimazole/Betamethasone Dip [Lotrisone Cream 15 gm] 1 applic TP BID 11/30/19 Oxycodone HCl [Oxy-Ir 5 mg Tablet] 10 mg PO Q6HP PRN 11/30/19 Phentermine HCl 37.5 mg PO DAILY 11/30/19 Ampicillin Trihydrate [Princepen 500 mg Capsule] 1 cap PO Q8H #30 cap 12/06/19 Insulin Lispro [Humalog Insulin (Lispro) 100 unit/mL] 0 - 12 unit SUBCUT ACHS unit 12/06/19 Insulin Lispro [Humalog Insulin (Lispro) 100 unit/mL] 24 unit SUBCUT AC unit 12/06/19 Nystatin [Mycostatin Cream 15 gm] 1 applic TP Q8 tube 12/06/19 History of Present Illiness History of Present Illness: NATALIIA SALINAS is a 54 year old female,She presented to the emergency room last night for evaluation of left thigh pain for the last 2 to 3 days she also felt that her blood sugar may be elevated because she ran out of her NovoLog insulin.She is not very adherent to diet regulations, exercise and weight loss she also drink a lot of sodas.She was evaluated emergency room, a CAT scan of the extremity with IV contrast was obtained it demonstrated subcutaneous inflammatory changes in the medial left thigh with subcutaneous gas. There was no well defined fluid collection or abscess demonstrated, no sinus tract formation the underlining myofascial planes well preserved. There was evidence of systemic inflammatory process with a temperature of 101, leukocytosis, white cell count was 17.5, the presentation was more consistent with polymyositis versus necrotizing fasciitis, consultation was obtained from surgery. She went to the OR this morning she underwent incision and drainage of a large complex left thigh abscess with sharp excisional debridement of skin and fatty soft tissue of the left upper thigh. I reviewed the operative report and there was a large area of induration on the left upper inner thigh incision was made over this area with the scalpel, a large cavity filled with purulent material was identified there was necrotic tissue present within the abscess cavity this was debrided. The entire cavity area measured approximately 5 x 3 cm.The serum glucose was 566 pH was 7.36,. She was negative for SARS-CoV-2 Hospital Course Hospital Course: Patient was admitted for the management of necrotizing fasciitis of the left thigh, she presented with inflammatory swelling of the left thigh, there was associated systemic inflammatory signs, she was evaluated by the surgeon she underwent incision and drainage on the admission day, she also was treated empirically with IV antibiotic, vancomycin and Zosyn. She underwent a second surgical excisional debridement few days after the first incision and drainage.The culture from the wound grew enterococcus faecalis, the antibiotic was changed to ampicillin which is the antibiotic of choice for Enterococcus faecalis.She has history of breast cancer presently undergoing radiation therapy, she had 2 sessions of outpatient scheduled radiation therapy.She has a large wound in the left thigh, the surgeon implanted a wound vacuum on the wound today, she is being discharged home today to follow-up patient. She also had hyperosmolar nonketotic diabetes mellitus, she was initially treated with insulin infusion and blood sugar was very high she required megadoses of insulin initially on admission subsequently it was better controlled until discharge today. Physical Exam Vital Signs: Temp Pulse Resp BP Pulse Ox 97.8 F 79 16 111/61 94 12/06/19 18:49 12/06/19 18:49 12/06/19 18:49 12/06/19 18:49 12/06/19 18:49 Intake & Output 12/05/19 12/06/19 12/07/19 06:59 06:59 06:59 Intake Total 2522 3400 1170 Output Total 750 1150 600 Balance 1772 2250 570 Weight 134.1 kg 134.1 kg General appearance: PRESENT: no acute distress Eye exam: PRESENT: PERRLA Respiratory exam: PRESENT: clear to auscultation lamar Cardiovascular exam: PRESENT: +S1, +S2 GI/Abdominal exam: PRESENT: soft Extremities exam: PRESENT: other - Large wound in the left thigh Neurological exam: PRESENT: alert Results Laboratory Results: WBC 9.3 10^3/uL (4.0-10.5) 12/04/19 06:49 RBC 3.86 10^6/uL (3.72-5.28) 12/04/19 06:49 Hgb 12.3 g/dL (12.0-15.5) 12/04/19 06:49 Hct 36.8 % (36.0-47.0) 12/04/19 06:49 MCV 95 fl (80-97) 12/04/19 06:49 MCH 32.0 pg (27.0-33.4) 12/04/19 06:49 MCHC 33.5 g/dL (32.0-36.0) 12/04/19 06:49 RDW 15.2 % (11.5-14.0) H 12/04/19 06:49 Plt Count 273 10^3/uL (150-450) 12/04/19 06:49 Lymph % (Auto) Not Reportable 12/04/19 06:49 Stark % (Auto) Not Reportable 12/04/19 06:49 Eos % (Auto) Not Reportable 12/04/19 06:49 Baso % (Auto) Not Reportable 12/04/19 06:49 Absolute Neuts (auto) Not Reportable 12/04/19 06:49 Absolute Lymphs (auto) Not Reportable 12/04/19 06:49 Absolute Monos (auto) Not Reportable 12/04/19 06:49 Absolute Eos (auto) Not Reportable 12/04/19 06:49 Absolute Basos (auto) Not Reportable 12/04/19 06:49 Total Counted 100 12/04/19 06:49 Seg Neutrophils % Not Reportable 12/04/19 06:49 Seg Neuts % (Manual) 68 % (42-78) 12/04/19 06:49 Band Neutrophils % 3 % (3-5) 12/04/19 06:49 Lymphocytes % (Manual) 18 % (13-45) 12/04/19 06:49 Atypical Lymphs % 2 % (0) 12/04/19 06:49 Monocytes % (Manual) 4 % (3-13) 12/04/19 06:49 Eosinophils % (Manual) 3 % (0-6) 12/04/19 06:49 Basophils % (Manual) 1 % (0-2) 12/04/19 06:49 Metamyelocytes % 1 % (0-1) 12/04/19 06:49 Abs Neuts (Manual) 6.7 10^3/uL (1.7-8.2) 12/04/19 06:49 Abs Lymphs (Manual) 1.9 10^3/uL (0.5-4.7) 12/04/19 06:49 Abs Monocytes (Manual) 0.4 10^3/uL (0.1-1.4) 12/04/19 06:49 Absolute Eos (Manual) 0.3 10^3/uL (0.0-0.6) 12/04/19 06:49 Abs Basophils (Manual) 0.1 10^3/uL (0.0-0.2) 12/04/19 06:49 Toxic Granulation SLIGHT 12/01/19 05:22 Clumped Platelets PRESENT 12/04/19 06:49 Platelet Comment ADEQUATE 12/04/19 06:49 Anisocytosis SLIGHT 12/04/19 06:49 PT 15.2 SEC (11.4-15.4) 11/30/19 01:54 INR 1.19 11/30/19 01:54 APTT 33.2 SEC (23.5-35.8) 11/30/19 01:54 Carbonic Acid 1.16 mmol/L (1.05-1.35) 11/30/19 04:50 HCO3/H2CO3 Ratio 18:1 11/30/19 04:50 ABG pH 7.36 (7.35-7.45) 11/30/19 04:50 ABG pCO2 38.7 mmHg (35-45) 11/30/19 04:50 ABG pO2 62.9 mmHg (80-100) L 11/30/19 04:50 ABG HCO3 21.2 mmol/L (20-24) 11/30/19 04:50 ABG Total CO2 22.4 mmol/L (21-25) 11/30/19 04:50 ABG O2 Saturation 91.3 % (94-98) L 11/30/19 04:50 ABG Base Excess -3.9 mmol/L 11/30/19 04:50 VBG pH 7.36 (7.30-7.42) 11/29/19 19:40 VBG pCO2 55.2 mmHg (35-63) 11/29/19 19:40 VBG HCO3 30.3 mmol/L (20-32) 11/29/19 19:40 VBG Base Excess 3.3 mmol/L 11/29/19 19:40 FiO2 21% 11/30/19 04:50 Sodium 138.3 mmol/L (137-145) 12/04/19 06:49 Potassium 4.5 mmol/L (3.6-5.0) 12/04/19 06:49 Chloride 109 mmol/L (98-107) H 12/04/19 06:49 Carbon Dioxide 22 mmol/L (22-30) 12/04/19 06:49 Anion Gap 7 (5-19) 12/04/19 06:49 BUN 40 mg/dL (7-20) H 12/04/19 06:49 Creatinine 1.34 mg/dL (0.52-1.25) H 12/04/19 06:49 Est GFR ( Amer) 50 (>60) L 12/04/19 06:49 Est GFR (Non-Af Amer) Cancelled 12/01/19 09:18 Est GFR (MDRD) Non-Af 41 (>60) L 12/04/19 06:49 Glucose 136 mg/dL (75-110) H 12/04/19 06:49 POC Glucose 95 mg/dL (70-110) 12/06/19 16:43 Hemoglobin A1c % 10.5 % (4.7-6.0) H 12/01/19 05:22 Lactic Acid 1.4 mmol/L (0.7-2.1) 11/30/19 00:02 Calcium 7.6 mg/dL (8.4-10.2) L 12/04/19 06:49 Phosphorus 1.8 mg/dL (2.5-4.5) L 11/30/19 01:54 Magnesium 1.9 mg/dL (1.6-2.3) 11/30/19 01:54 Total Bilirubin 0.6 mg/dL (0.2-1.3) 12/01/19 09:18 Direct Bilirubin 0.2 mg/dL (0.0-0.4) 12/01/19 09:18 Neonat Total Bilirubin Not Reportable 12/01/19 09:18 Neonat Direct Bilirubin Not Reportable 12/01/19 09:18 Neonat Indirect Bili Not Reportable 12/01/19 09:18 AST 27 U/L (14-36) 12/01/19 09:18 ALT 19 U/L (<35) 12/01/19 09:18 Alkaline Phosphatase 91 U/L (38-126) 12/01/19 09:18 Ammonia < 8.7 umol/L (9-33) L 11/30/19 01:54 Creatine Kinase 100 U/L (30-135) 11/30/19 15:20 CK-MB (CK-2) 0.62 ng/mL (<4.55) 11/30/19 15:20 Troponin I 0.013 ng/mL 11/30/19 15:20 C-Reactive Protein 297.7 mg/L (<10.0) H 11/30/19 01:54 NT-Pro-B Natriuret Pep 330 pg/mL (<125) H 11/30/19 01:54 Total Protein 5.7 g/dL (6.3-8.2) L 12/01/19 09:18 Albumin 2.6 g/dL (3.5-5.0) L 12/01/19 09:18 Triglycerides 146 mg/dL (<150) 12/01/19 05:22 Cholesterol 128.20 mg/dL (0-200) 12/01/19 05:22 LDL Cholesterol Direct 79 mg/dL (<100) 12/01/19 05:22 VLDL Cholesterol 29.0 mg/dL (10-31) 12/01/19 05:22 HDL Cholesterol 27 mg/dL (>40) L 12/01/19 05:22 Amylase < 30 U/L (30-110) L 11/30/19 01:54 Lipase 17.4 U/L (23-300) L 11/30/19 01:54 EGFR Cancelled 12/01/19 09:18 TSH 2.77 uIU/mL (0.47-4.68) 11/30/19 01:54 Free T4 1.12 ng/dL (0.78-2.19) 11/30/19 01:54 Urine Color STRAW 11/29/19 20:40 Urine Appearance SLIGHTLY-CLOUDY 11/29/19 20:40 Urine pH 5.0 (5.0-9.0) 11/29/19 20:40 Ur Specific Goodman 1.031 11/29/19 20:40 Urine Protein 100 mg/dL (NEGATIVE) H 11/29/19 20:40 Urine Glucose (UA) 1000 mg/dL (NEGATIVE) H 11/29/19 20:40 Urine Ketones NEGATIVE mg/dL (NEGATIVE) 11/29/19 20:40 Urine Blood MODERATE (NEGATIVE) H 11/29/19 20:40 Urine Nitrite NEGATIVE (NEGATIVE) 11/29/19 20:40 Urine Bilirubin NEGATIVE (NEGATIVE) 11/29/19 20:40 Urine Urobilinogen NEGATIVE mg/dL (<2.0) 11/29/19 20:40 Ur Leukocyte Esterase NEGATIVE (NEGATIVE) 11/29/19 20:40 Urine RBC 5-10 /HPF 11/29/19 20:40 Ur Squamous Epith Cells MANY /HPF 11/29/19 20:40 Urine Yeast PRESENT 11/29/19 20:40 Urine Creatinine 94.0 mg/dL (15-278) 12/01/19 15:30 Protein/Creatinin Ratio 0.8 mg/mg (0.0-0.2) H 12/01/19 15:30 Urine Total Protein 72.1 mg/dL (<12) H 12/01/19 15:30 Urine Ascorbic Acid NEGATIVE (NEGATIVE) 11/29/19 20:40 Time Trough Drawn 1336 12/01/19 13:36 Vancomycin Trough 18.0 ug/mL (5.0-20.0) 12/01/19 13:36 Urine Opiates Screen NEGATIVE 11/29/19 20:40 Urine Methadone Screen NEGATIVE 11/29/19 20:40 Ur Barbiturates Screen NEGATIVE 11/29/19 20:40 Ur Phencyclidine Scrn NEGATIVE 11/29/19 20:40 Ur Amphetamines Screen NEGATIVE 11/29/19 20:40 U Benzodiazepines Scrn NEGATIVE 11/29/19 20:40 Urine Cocaine Screen NEGATIVE 11/29/19 20:40 U Marijuana (THC) Screen NEGATIVE 11/29/19 20:40 SARS-CoV-2 (PCR) NEGATIVE (NEGATIVE) 11/30/19 06:17 11/30/19 11/30/19 11/30/19 01:54 01:54 07:45 CK-MB (CK-2) 1.01 1.26 Troponin I < 0.012 < 0.012 NT-Pro-B Natriuret Pep 330 H 11/30/19 15:20 CK-MB (CK-2) 0.62 Troponin I 0.013 NT-Pro-B Natriuret Pep Impressions: Lower Extremity CT 11/29/19 20:30 IMPRESSION: Subcutaneous inflammatory changes and skin thickening of the medial left thigh consistent with cellulitis. Underlying soft tissue gas without a discrete/defined abscess. Gas-forming organism is considered. TECHNICAL DOCUMENTATION: Quality ID # 436: Final reports with documentation of one or more dose reduction techniques (e.g., Automated exposure control, adjustment of the mA and/or kV according to patient size, use of iterative reconstruction technique) copyright 2011 [employer]- All Rights Reserved Stroke Is this a Stroke Patient?: No Acute Heart Failure - Is this a Heart Failure Patient?: No
== END 2019-12-06 19:30 | disposition home or self-care (01) | DRG 463 ==
LOC: ER 17:19 → EH 23:58 → 3W 11-30 03:06
PROVIDERS: ADMIT Internal Medicine; ATTEND Internal Medicine
PROC: 0JDM0ZZ Extraction of Left Upper Leg Subcutaneous Tissue and Fascia, Open Approach (ICD-10-PCS; 2019-11-30)
PROC: 0H9JX0Z Drainage of Left Upper Leg Skin with Drainage Device, External Approach (ICD-10-PCS; 2019-11-30)
PROC: 0JBM0ZZ Excision of Left Upper Leg Subcutaneous Tissue and Fascia, Open Approach (ICD-10-PCS; principal; 2019-12-02 14:45)
PROC: 2W1PX6Z Compression of Left Upper Leg using Pressure Dressing (ICD-10-PCS; 2019-12-06)
DX: M72.6 Necrotizing fasciitis (principal); E11.00 Type 2 diabetes mellitus with hyperosmolarity without nonketotic hyperglycemic-hyperosmolar coma (NKHHC); L02.416 Cutaneous abscess of left lower limb; F33.2 Major depressive disorder, recurrent severe without psychotic features; N17.9 Acute kidney failure, unspecified; Z68.42 Body mass index [BMI] 45.0-49.9, adult; B95.2 Enterococcus as the cause of diseases classified elsewhere; E78.00 Pure hypercholesterolemia, unspecified; I10 Essential (primary) hypertension; E11.65 Type 2 diabetes mellitus with hyperglycemia; E83.51 Hypocalcemia; K21.9 Gastro-esophageal reflux disease without esophagitis; L40.9 Psoriasis, unspecified; E66.01 Morbid (severe) obesity due to excess calories; Z91.14 Patient's other noncompliance with medication regimen; Z03.818 Encounter for observation for suspected exposure to other biological agents ruled out; Z79.4 Long term (current) use of insulin; Z79.51 Long term (current) use of inhaled steroids; Z79.899 Other long term (current) drug therapy
CPT/HCPCS: 00400; 36415; 36600; 80048; 80053; 80061; 80202; 80307; 81001; 82140; 82150; 82550; 82553; 82570; 82803; 82962; 83036; 83605; 83690; 83735; 83880; 84100; 84156; 84439; 84443; 84484; 85025; 85610; 85730; 86140; 87040; 87070; 87075; 87077; 87086; 87186; 87205; 87635; 96361; 96374; 99285; J0131; J0290; J0330; J0690; J1100; J1650; J1815; J1885; J2250; J2270; J2405; J2543; J2704; J3010; J3370; J3490; J7030; J7050; J7060

== ENCOUNTER 2019-12-08 01:19 | Emergency (ER) | payer MEDICAID ==
--- NOTE | 2019-12-08 02:00 | ER Document Report ---
ED Wound - General Chief Complaint: Wound Infection Stated Complaint: LEFT THIGH INJURY Time Seen by Provider: 12/08/19 01:40 Primary Care Provider: GRANT PIERRE MD [Primary Care Provider] - Follow up as needed Notes: Patient is a 54-year-old female that comes to the emergency department for chief complaint of malfunction of her wound VAC that was placed in her left inner proximal thigh. Patient had an abscess drained during hospitalization earlier this month, the wound VAC was placed on 12/06/[address] South. Patient was prescribed ampicillin based on the cultures growing enterococcus faecalis. Pat ient does report some dripping drainage from the area after the vacuum portion was pulled out, however she denies any pain, developing or spreading redness, fever/chills, nausea/vomiting, or any other complaints at this time. Patient comes from home. TRAVEL OUTSIDE OF THE [place] IN LAST 30 DAYS: No - Related Data Allergies/Adverse Reactions: exenatide [From [employer]] Allergy (Intermediate, Verified 09/03/19 17:36) Hives Home Medications: gabapentin, actos, lantus, antibiotic-not started yet Past Medical History - General Information source: Patient - Social History Smoking Status: Never Smoker Lives with: Family Family History: CAD Patient has homicidal ideation: No - Past Medical History Cardiac Medical History: Reports: Hx Hypercholesterolemia, Hx Hypertension - NOT CURRENTLY ON MEDS Denies: Hx Coronary Artery Disease, Hx Heart Attack Pulmonary Medical History: Reports: Hx Asthma - MILD, Hx Pneumonia Denies: Hx Bronchitis, Hx COPD Neurological Medical History: Denies: Hx Cerebrovascular Accident, Hx Seizures Endocrine Medical History: Reports: Hx Diabetes Mellitus Type 2 Renal/ Medical History: Denies: Hx End Stage Renal Disease, Hx Kidney Stones, Hx Peritoneal Dialysis, Hx Renal Insufficiency GI Medical History: Reports: Hx Gastroesophageal Reflux Disease Musculoskeletal Medical History: Reports Hx Arthritis, Reports Hx Musculoskeletal Deformity, Reports Hx Musculoskeletal Trauma Skin Medical History: Reports Hx Psoriasis Psychiatric Medical History: Reports: Hx Depression Traumatic Medical History: Reports: Hx Fractures Past Surgical History: Reports: Hx Cardiac Catheterization, Hx Hysterectomy - Immunizations Immunizations up to date: Yes Hx Diphtheria, Pertussis, Tetanus Vaccination: Yes Hx Pneumococcal Vaccination: 07/20/10 Review of Systems - Review of Systems Constitutional: No symptoms reported EENT: No symptoms reported Cardiovascular: No symptoms reported Respiratory: No symptoms reported Gastrointestinal: No symptoms reported Genitourinary: No symptoms reported Female Genitourinary: No symptoms reported Musculoskeletal: See HPI Skin: See HPI Hematologic/Lymphatic: No symptoms reported Neurological/Psychological: No symptoms reported Physical Exam - Vital signs Vitals: Temp 98.9 F 12/08/19 01:27 - Notes Notes: GENERAL: Alert, interacts well. No acute distress. HEAD: Normocephalic, atraumatic. EYES: Pupils equal, round, and reactive to light. Extraocular movements intact. ENT: Oral mucosa moist, tongue midline. Oropharynx unremarkable. Airway patent. NECK: Full range of motion. Supple. Trachea midline. No lymphadenopathy. LUNGS: Clear to auscultation bilaterally, no wheezes, rales, or rhonchi. No respiratory distress. Non-tender chest wall. HEART: Regular rate and rhythm. No murmur ABDOMEN: Soft, non-tender. Non-distended. EXTREMITIES: Moves all 4 extremities spontaneously. No edema, normal radial and dorsalis pedis pulses bilaterally. No cyanosis. BACK: no cervical, thoracic, lumbar midline tenderness. No saddle anesthesia, normal distal neurovascular exam. NEUROLOGICAL: Alert and oriented x3. Normal speech. Cranial nerves II through X II grossly intact. Strength 5/5 in all extremities. PSYCH: Normal affect, normal mood. SKIN: There is a large vertical laceration in the left proximal inner thigh with a foam packing and a Tegaderm dressing. There appears to have been a vacuum but this was from the dressing. There is a small amount of mixed clear, yellowish drainage. There is no surrounding erythema, induration, noted tenderness, or foul odor from the area. Course - Re-evaluation Re-evalutation: The wound vacuum portion does appear to have pulled out of the sponge and dressing and there is some dripping from the inferior aspect of the left medial thigh wound. No surrounding erythema or tenderness noted, no fever, no other complaints. 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 Patient has no other complaints. She has close follow-up and she has home health coming to manage the dressing. Discussed care and return precautions. Patient states understanding and agreement. - Vital Signs Vital signs: Temp Pulse Resp BP Pulse Ox 98.2 F 86 20 141/62 H 98 12/08/19 02:44 12/08/19 02:44 12/08/19 02:44 12/08/19 02:44 12/08/19 02:44 Discharge - Discharge Clinical Impression: Encounter for surgical wound dressing change, Encounter for management of wound VAC Condition: Stable Disposition: HOME, SELF-CARE Additional Instructions: The dressing change has been performed on the wound VAC, continue management will be performed by home health. Follow-up with your surgeon referral as well follow-up with your surgical clinic as well. Return for any concerning symptoms including developing or spreading redness, fever, vomiting, or any other concerning or worsening symptoms. Referrals: GRANT PIERRE MD [Primary Care Provider] - Follow up as needed
[2019-12-08 02:46] VITALS: BP 141/62
== END 2019-12-08 02:46 | disposition home or self-care (01) ==
LOC: ER 01:19
DX: Z09 Encounter for follow-up examination after completed treatment for conditions other than malignant neoplasm (principal); L02.416 Cutaneous abscess of left lower limb; Z88.8 Allergy status to other drugs, medicaments and biological substances; Z79.899 Other long term (current) drug therapy; I10 Essential (primary) hypertension; J45.909 Unspecified asthma, uncomplicated; E11.9 Type 2 diabetes mellitus without complications
CPT/HCPCS: 99283

== ENCOUNTER → 2020-01-24 | Outpatient (CLI) | payer MEDICAID ==
--- NOTE | 2020-01-24 15:00 | WOMENS IMAGING REPORT ---
EXAM DESCRIPTION: BONE DENSITY HIP/SPINE IMAGES COMPLETED DATE/TIME: 01/24/2020 2:28 pm REASON FOR STUDY: M81.0 AGE-RELATED OSTEOPOROSIS W/O CURRENT PATHOLOGICAL FRACTURE M81.0 AGE-RELATE D OSTEOPOROSIS W/O CURRENT PATHOLOGICAL FRAC COMPARISON: None. TECHNIQUE: Dual-Energy X-ray Absorptiometry (DEXA) of the AP Spine and Hip. LIMITATIONS: None. FINDINGS: LUMBAR SPINE: The bone mineral density (BMD) measured from L1-L4 in the AP projection correlates with a T-score of +0.2, which is normal as defined by the World Health Organization. BMD Change vs Baseline: N/A HIP: The bone mineral density (BMD) measured in the left femoral neck at the hip correlates with a T-score of -0.3, which is normal as defined by the World Health Organization. BMD Change vs Baseline: N/A 10 year Fracture Risk Assessment: Major Osteoporotic Fracture: Not available. Hip Fracture: Not available. IMPRESSION: 1. LUMBAR SPINE WHO CLASSIFICATION: Normal 2. HIP WHO CLASSIFICATION: Normal OVERALL ASSESSMENT: WHO CLASSIFICATION: Normal COMMENT: The World Health Organization defines low BMD as follows: T-score: Normal: At or above -1.0 Osteopenia: Between -1.0 and -2.5 Osteoporosis: At or below -2.5 without fractures Established osteoporosis: At or below -2.5 with fractures In general, you may wish to consider: Diagnosis Treatment Follow-up DEXA Normal BMD Prevention 2-3 years Osteopenia Prevention/Therapy 1-2 years Osteoporosis Therapy Yearly TECHNICAL DOCUMENTATION: JOB ID: [id number] 2010 [employer]- All Rights Reserved Reading location - IP/workstation name: [email or web address]
== END ==
LOC: WI 13:47
PROVIDERS: ATTEND Internal Medicine Hematology & Oncology
DX: M81.0 Age-related osteoporosis without current pathological fracture (principal)
CPT/HCPCS: 77080

== ENCOUNTER 2020-01-27 19:17 | Emergency (ER) | payer MEDICAID | END 2020-01-27 19:50 | disposition left against medical advice (07) | LOC: ER 19:17 | DX: Z53.21 Procedure and treatment not carried out due to patient leaving prior to being seen by health care provider (principal); R07.81 Pleurodynia; M25.562 Pain in left knee; W19.XXXA Unspecified fall, initial encounter ==

== ENCOUNTER 2020-01-28 14:49 | Emergency (ER) | payer MEDICAID ==
--- NOTE | 2020-01-28 15:51 | ER Document Report ---
HPI - HPI Patient complains to provider of: Left Knee Pain Time Seen by Provider: 01/28/20 15:42 Pain Level: 4 Context: 54-year-old female past medical history significant for diabetes, hypertension, chronic back pain presents the emergency room complaining of left knee pain. Patient states she slipped and fell going into [employer] 2 days ago. States she is been taking her oxycodone and Toradol with some relief. Pain is worse with walking. States pain is getting progressively worse. Denies hitting her head, denies any other injuries. Has not been seen for symptoms prior to today. Associated Symptoms: None Exacerbated by: Movement, Walking Relieved by: Denies Similar symptoms previously: No Recently seen / treated by doctor: No - ROS Systems Reviewed and Negative: Yes All other systems reviewed and negative - EENT EENT: DENIES: Sore Throat, Ear Pain, Eye problems - NEURO Neurology: DENIES: Headache, Weakness, Vision blurred, Dizzinesss / Vertigo - CARDIOVASCULAR Cardiovascular: DENIES: Chest pain - RESPIRATORY Respiratory: DENIES: Trouble Breathing, Coughing - GASTROINTESTINAL Gastrointestinal: DENIES: Abdominal Pain, Black / Bloody Stools - URINARY Urinary: DENIES: Dysuria, Urgency, Frequency - REPRODUCTIVE Reproductive: DENIES: : - MUSCULOSKELETAL Musculoskeletal: REPORTS: Extremity pain Past Medical History - General Information source: Patient - Social History Smoking Status: Never Smoker Frequency of alcohol use: None Drug Abuse: None Family History: CAD Patient has homicidal ideation: No - Past Medical History Cardiac Medical History: Reports: Hx Hypercholesterolemia, Hx Hypertension - NOT CURRENTLY ON MEDS Denies: Hx Coronary Artery Disease, Hx Heart Attack Pulmonary Medical History: Reports: Hx Asthma - MILD, Hx Pneumonia Denies: Hx Bronchitis, Hx COPD Neurological Medical History: Denies: Hx Cerebrovascular Accident, Hx Seizures Endocrine Medical History: Reports: Hx Diabetes Mellitus Type 2 Renal/ Medical History: Denies: Hx End Stage Renal Disease, Hx Kidney Stones, Hx Peritoneal Dialysis, Hx Renal Insufficiency GI Medical History: Reports: Hx Gastroesophageal Reflux Disease Musculoskeletal Medical History: Reports Hx Arthritis, Reports Hx Musculoskeletal Deformity, Reports Hx Musculoskeletal Trauma Skin Medical History: Reports Hx Psoriasis Psychiatric Medical History: Reports: Hx Depression Traumatic Medical History: Reports: Hx Fractures Past Surgical History: Reports: Hx Cardiac Catheterization, Hx Hysterectomy - Immunizations Immunizations up to date: Yes Hx Diphtheria, Pertussis, Tetanus Vaccination: Yes Hx Pneumococcal Vaccination: 07/20/10 Vertical Provider Document - CONSTITUTIONAL Agree With Documented VS: Yes Exam Limitations: No Limitations General Appearance: Mild Distress - INFECTION CONTROL TRAVEL OUTSIDE OF THE [place] IN LAST 30 DAYS: No - HEENT HEENT: Atraumatic, Normocephalic - NECK Neck: Normal Inspection, Supple - RESPIRATORY Respiratory: Breath Sounds Normal, No Respiratory Distress, Chest Non-Tender - CARDIOVASCULAR Cardiovascular: Regular Rate, Regular Rhythm, No Murmur - MUSCULOSKELETAL/EXTREMETIES Musculoskeletal/Extremeties: Tender - Tenderness on palpation to the left patella. Painful range of motion with flexion, extension, positive anterior posterior draw. Negative Jorge's, negative Rosanna's. - NEURO Level of Consciousness: Awake, Alert, Appropriate Motor/Sensory: No Motor Deficit, No Sensory Deficit Notes: Positive left pedal pulse. Ambulatory with limping noted to left leg. Course - Re-evaluation Re-evalutation: 01/28/20 16:54 Reviewed x-ray results with patient. Patient is resting comfortably with decreased pain. She was counseled on the need to wear the knee immobilizer and use crutches with nonweightbearing until she can see the orthopedist she has been provided with the on-call physician. Can continue with her current home pain medications. Patient was given strict return to the emergency room guidelines. Return for any new or worsening symptoms. All questions were answered. Patient verbalized understanding and agrees with plan of care. - Vital Signs Vital signs: Temp Pulse Resp BP Pulse Ox 98.0 F 78 20 168/72 H 97 01/28/20 15:13 01/28/20 15:13 01/28/20 15:13 01/28/20 15:13 01/28/20 15:13 - Diagnostic Test Radiology reviewed: Reports reviewed Procedures - Immobilization Left Knee Time completed: 16:56 Pre-Proc Neuro Vasc Exam: Normal Immobilizer type: Crutches, Knee immobilizer Performed by: PIOTR Post-Proc Neuro Vasc Exam: Normal Alignment checked and good: Yes Discharge - Discharge Clinical Impression: Avulsion fracture of tibial tuberosity Condition: Stable Disposition: HOME, SELF-CARE Instructions: Avulsion Fracture ([facility]), Suspected Internal Knee Injury ([facility]) Additional Instructions: Rest, ice, elevate your left knee. Wear knee immobilizer and use crutches with nonweightbearing to the left leg until seen by orthopedics. Call orthopedics as discussed. Continue with your current home medications. Return to the emergency room for any new or worsening symptoms. Referrals: GRANT PIERRE MD [Primary Care Provider] - Follow up as needed JOSEPH SOMERS JR, DO [ACTIVE PROVISIONAL STAFF] - Follow up in 3-5 days (Call for an outpatient follow-up appointment.)
--- NOTE | 2020-01-28 16:26 | RADIOLOGY REPORT (SQ) ---
EXAM DESCRIPTION: KNEE LEFT 4 VIEW IMAGES COMPLETED DATE/TIME: 01/28/2020 4:13 pm REASON FOR STUDY: injury COMPARISON: None. NUMBER OF VIEWS: Four views. TECHNIQUE: AP, lateral, and both oblique radiographic images acquired of the left knee. LIMITATIONS: None. FINDINGS: MINERALIZATION: Normal. BONES: 3 mm ossicle adjacent to the lateral tibial plateau. No dislocation. No worrisome bone lesio ns. Tibial tubercle fragmentation consistent with sequela of Forreston-Schlatter's disease. JOINT: No large effusion. SOFT TISSUES: No soft tissue swelling. No radio-opaque foreign body. OTHER: Vascular calcifications. IMPRESSION: 3 mm ossicle adjacent to the lateral tibial plateau possibly representing a Segond fract ure. TECHNICAL DOCUMENTATION: JOB ID: [id number] 2010 [employer]- All Rights Reserved Reading location - IP/workstation name: [email or web address]
[2020-01-28 17:24] VITALS: BP 171/80
== END 2020-01-28 17:23 | disposition home or self-care (01) ==
LOC: ER 14:49
DX: S82.152A Displaced fracture of left tibial tuberosity, initial encounter for closed fracture (principal); M25.562 Pain in left knee; W18.30XA Fall on same level, unspecified, initial encounter; I10 Essential (primary) hypertension; E11.9 Type 2 diabetes mellitus without complications; G89.29 Other chronic pain; M54.9 Dorsalgia, unspecified; Z90.710 Acquired absence of both cervix and uterus
CPT/HCPCS: 99283

== ENCOUNTER → 2020-03-06 | Outpatient (CLI) | payer MEDICAID ==
--- NOTE | 2020-03-06 14:10 | RADIOLOGY REPORT (SQ) ---
EXAM DESCRIPTION: VENOUS UNILATERAL LOWER IMAGES COMPLETED DATE/TIME: 03/06/2020 1:50 pm REASON FOR STUDY: LLE PAIN M79.662 PAIN IN LEFT LOWER LEG COMPARISON: None. TECHNIQUE: Dynamic and static lewis scale and color images acquired of the left leg venous system. Se lected spectral images acquired with additional compression and augmentation maneuvers. The contralat eral common femoral vein and saphenofemoral junction were also imaged. Images stored on PACS. LIMITATIONS: None. FINDINGS: COMMON FEMORAL: Normal phasicity, compression and augmentation. No visualized echogenic ma terial on lewis scale. No defects on color images. FEMORAL: Normal compression and augmentation. No visualized echogenic material on lewis scale. No defe cts on color images. POPLITEAL: Normal compression, augmentation. No visualized echogenic material on lewis scale. No defec ts on color images. CALF VESSELS: Normal compression, augmentation. No visualized echogenic material on lewis scale. No de fects on color images. Limited evaluation of the posterior tibial veins. They do compress. GSV and SSV: Normal compression, augmentation. No visualized echogenic material on lewis scale. No def ects on color images. ANY DEEP VENOUS INSUFFICIENCY: Not evaluated. ANY EVIDENCE OF POPLITEAL CYST: No. OTHER: No other significant finding. CONTRALATERAL COMMON FEMORAL VEIN AND SAPHENOFEMORAL JUNCTION: Normal phasicity, compression and augmentation. No visualized echogenic material on lewis scale. No de fects on color images. IMPRESSION: NO EVIDENCE DVT OR SVT IN THE LEFT LEG. TECHNICAL DOCUMENTATION: JOB ID: [id number] 2010 [employer]- All Rights Reserved Reading location - IP/workstation name: [email or web address]
== END ==
LOC: SP 12:48
PROVIDERS: ATTEND Physician Assistant
DX: M79.662 Pain in left lower leg (principal)
CPT/HCPCS: 93971

== ENCOUNTER 2020-03-28 08:41 | Day surgery (SDC) | payer MEDICAID ==
[~2020-03-28 08:41] MED LIST changes: -CEFAZOLIN 1 GM/D5W RTU 1 GM/50 ML RTUPB IV PRN; +CHONDR SU A NA/HYALUR INTRAOC KIT (SURGICARE) ONE; -DEXTROSE 5%-LACTATED RINGERS 1,000 ML IV PRN; +EPINEPHRINE INJ/PF 1 MG/1 ML AMPULE ONE; +KETOROLAC TROMETHAMINE 0.45% 4 DROP/0.4 ML DROPERETTE OS PRN; -LIDOCAINE 0.5% INJ-PF (5 MG/ML) 50 ML SDV SUBCUT PRN; +LIDOCAINE 1%/PHENYLEPHRINE 1.5% 0.8 ML SYRINGE ONE; -LIDOCAINE 4% TRANSPARENT DRESSING 5 GM KIT TP PRN; -RINGERS SOLUTION,LACTATED 1,000 ML IV PRN
[2020-03-28] MEDS ORDERED: MIDAZOLAM 2 MG/2 ML INJ ONE (08:56)
[2020-03-28] MEDS ORDERED: ONDANSETRON HCL INJ/PF 4 MG/2 ML SDV ONE (08:56)
[2020-03-28] MEDS ORDERED: FENTANYL CITRATE INJ/PF 100 MCG/2 ML AMPUL ONE (08:57)
[2020-03-28] MEDS: CYCLOPENTOLATE 0.2%/PHENYLEPHRINE 1% OPH SOLN 2 ML OS PRN ×3 (09:19→09:39)
[2020-03-28] MEDS: BESIFLOXACIN HCL 0.6% OPH SUSP 5 ML BOTTLE OS PRN ×4 (09:19→10:18)
[2020-03-28] MEDS: TROPICAMIDE 1% OPH SOLN 15 ML OS PRN ×3 (09:19→09:39)
[2020-03-28] MEDS: TETRACAINE HCL 0.5% OPH SOLN 4 ML OS PRN ×3 (09:20→10:01)
[2020-03-28] MEDS ORDERED: INSULIN REG, HUMAN 100 UNIT/ML 3 ML VIAL (PYX) ONE (09:55)
[2020-03-28] MEDS: PREDNISOLONE ACETATE 1% OPH SUSP 5 ML OS PRN ×2 (10:18)
[2020-03-28] MEDS: DORZOLAMIDE HCL 2%/TIMOLOL MALEAT 0.5% OPH SOLN 10 ML OS PRN ×2 (10:18)
--- NOTE | 2020-03-28 10:46 | Operative Report ---
Operative Report-[facility] Operative Report: DATE OF SURGERY: March 28, 2020 PREOPERATIVE DIAGNOSIS: NUCLEAR CATARACT, LEFT EYE. POSTOPERATIVE DIAGNOSIS: NUCLEAR CATARACT, LEFT EYE. PROCEDURE PERFORMED: PHACOEMULSIFICATION WITH POSTERIOR CHAMBER INTRAOCULAR LENS IMPLANT, LEFT EYE. SURGEON: Tj Hernandez DO MEDICATIONS AND ANESTHESIA: Versed: IV Versed Tetracaine drops: 1 to 2 drops given as needed COMPLICATION: None INDICATIONS FOR SURGERY: Medical necessity: Best corrected visual acuity worse than 20/40 secondary to cataracts with impairment of ability to carry out needs or desired activities, blurred vision, visual distortion, reduced contrast sensitivity and/or glare with association functional impairment and supporting documentation/testing, and cataracts causing symptomatic impairment of visual functions not corrected with tolerable changes in glasses or contact lenses interfering with activities of daily life. PROCEDURE: Consent: The risks, benefits and alternatives of this procedures was discussed with the patient. The patient read and signed the consent forms, was identified and was seated in the exam chair. IOL: MX 60 E 22.5 IOL Diopters: Phacoemulsification with posterior chamber intraocular lens implant: The face was prepped with 5% povidone iodine solution, and a few drops of 5% povidone iodine solution was instilled into the inferior fornix. A non-fenestrated drape was placed over the eye and the lids were parted with the speculum. A paracentesis was made with a 15 degree blade, and 1% lidocaine MPF followed by viscoelastic was injected into the anterior chamber. A 2.4 mm metal micro- keratome was used to create a temporal clear corneal incision. A circular anterior capsulorrhexis was created, followed by hydro-dissection and hydro- delineation. The phacoemulsification hand piece was inserted and the nucleus was removed with the Phaco chop technique. The irrigation-aspiration hand piece was used to remove the residual cortex, and vacuum the posterior capsule. The capsular bag was inflated and viscoelastic and the above-mentioned IOL was injected into the eye with care to insert both leaning and trailing haptics in the capsular bag. The irrigation/aspiration hand piece was reinserted to remove residual viscoelastic from the capsular bag and anterior chamber. The corneal incision was hydrated, and anterior chamber was inflated with sterile BSS via the paracentesis site, and found to be watertight. Postop medication:1 drop of prednisolone into operative by followed by 1 drop of Cosopt into operative eye followed by 1 drop of Besivance intraoperative by Other:
== END 2020-03-28 11:03 | disposition home or self-care (01) ==
LOC: SC 08:41
PROVIDERS: ATTEND Ophthalmology
DX: H25.12 Age-related nuclear cataract, left eye (principal); E11.9 Type 2 diabetes mellitus without complications; I10 Essential (primary) hypertension; L40.50 Arthropathic psoriasis, unspecified; K21.9 Gastro-esophageal reflux disease without esophagitis; M06.9 Rheumatoid arthritis, unspecified; Z79.4 Long term (current) use of insulin; Z79.899 Other long term (current) drug therapy; J45.909 Unspecified asthma, uncomplicated; Z85.3 Personal history of malignant neoplasm of breast; Z82.49 Family history of ischemic heart disease and other diseases of the circulatory system
CPT/HCPCS: 66984; 82962; 00142; V2632; J2250; J3490 ×4; J0171; J3010; J1815; J2405; 142

== ENCOUNTER 2020-04-15 22:33 | Emergency (ER) | payer MEDICAID ==
[2020-04-16 00:03] LABS: ABSOLUTE BASOPHILS # (AUTO) 0.1 10^3/uL (0.0-0.2); ABSOLUTE EOSINOPHILS # (AUTO) 0.4 10^3/uL (0.0-0.6); ABSOLUTE LYMPHOCYTES (AUTO) 1.4 10^3/uL (0.5-4.7); ABSOLUTE MONOCYTES (AUTO) 0.8 10^3/uL (0.1-1.4); ABSOLUTE NEUT (AUTO) 8.3 10^3/uL (1.7-8.2); BASOPHILS % (AUTO) 0.6 % (0-2); HEMATOCRIT 40.7 % (36.0-47.0); HEMOGLOBIN 13.8 g/dL (12.0-15.5); LYMPHOCYTES % (AUTO) 12.5 % (13-45); MEAN CORPUSCULAR HEMOGLOBIN 31.5 pg (27.0-33.4); MEAN CORPUSCULAR VOLUME 93 fl (80-97); MONOCYTES % (AUTO) 7.1 % (3-13); PLATELET COUNT 263 10^3/uL (150-450); RED BLOOD COUNT 4.38 10^6/uL (3.72-5.28); RED CELL DISTRIBUTION WIDTH 15.8 % (11.5-14.0); SEGMENTED NEUTROPHILS % (AUTO) 75.8 % (42-78); TOTAL CELLS COUNTED % (AUTO) 100 %
[2020-04-16 00:13] LABS: APPEARANCE,URINE CLEAR; BILIRUBIN,URINE NEGATIVE (NEGATIVE); COLOR,URINE STRAW; GLUCOSE, URINE >=500 mg/dL (NEGATIVE); KETONES,URINE NEGATIVE (NEGATIVE); LEUKOCYTE ESTERASE,URINE NEGATIVE (NEGATIVE); NITRITE,URINE NEGATIVE (NEGATIVE); PROTEIN,URINE 100 mg/dL (NEGATIVE); URINE SPECIFIC GRAVITY 1.024; UROBILINOGEN,URINE NEGATIVE mg/dL (<2.0)
[2020-04-16 00:29] LABS: ALBUMIN 3.6 g/dL (3.5-5.0); ALKALINE PHOSPHATASE 114 U/L (38-126); ANION GAP 11 (5-19); ASPARTATE AMINO TRANSFERASE 17 U/L (14-36); BILIRUBIN,DIRECT 0.4 mg/dL (0.0-0.4); BILIRUBIN,TOTAL 0.5 mg/dL (0.2-1.3); BLOOD UREA NITROGEN 29 mg/dL (7-20); CALCIUM 8.7 mg/dL (8.4-10.2); CARBON DIOXIDE 27 mmol/L (22-30); CHLORIDE 102 mmol/L (98-107); POTASSIUM 4.1 mmol/L (3.6-5.0); TOTAL PROTEIN 6.9 g/dL (6.3-8.2)
[2020-04-16 00:33] LABS: GLUCOSE 410 mg/dL (75-110)
[2020-04-16] MEDS ORDERED: NORMAL SALINE 1000 ML 1,000 ML IV ONE (02:17)
[2020-04-16] MEDS ORDERED: METHYLPREDNISOLONE INJ 125 MG/2 ML SDV IV ONE (03:43)
[2020-04-16] MEDS ORDERED: KETOROLAC TROMETHAMINE INJ/PF 30 MG/1 ML SDV IV ONE (03:43)
[2020-04-16] MEDS ORDERED: INSULIN REG, HUMAN 100 UNIT/ML 3 ML VIAL (PYX) SUBCUT ONE (03:43)
[2020-04-16] MEDS ORDERED: NORMAL SALINE 500 ML IV ONE (03:44)
[2020-04-16] MEDS ORDERED: LEVALBUTEROL HCL NEB 1.25 MG/3 ML AMPUL NEB ONE (03:45)
--- NOTE | 2020-04-16 03:46 | ER Document Report ---
ED General - General Chief Complaint: Flank Pain Stated Complaint: SHORTNESS OF BREATH Time Seen by Provider: 04/16/20 02:56 Primary Care Provider: GRANT PIERRE MD [Primary Care Provider] - Follow up as needed TRAVEL OUTSIDE OF THE [place] IN LAST 30 DAYS: No - HPI Quality of pain: Other - See HPI Context: 54-year-old female with history of diabetes and asthma presents to the emergency department complaining of bilateral flank pain for the past 3 days. Patient states that the pain is worse on the right than the left and it radiates around towards her groin on the right side. Patient denies fever chills. Patient states she is had increased urinary frequency and some dysuria patient rates the pain as a 3 out of 5 and describes it as aching. Patient states nothing alleviates the symptoms and nothing seems to exacerbate the symptoms. Patient states that she also feels like her asthma has been acting up lately and has noticed that she is felt slightly more short of breath and has been coughing more as of late. Patient denies fever, chills, chest pain, history of COVID infection, known exposure to COVID positive patients, known exposure to persons under investigation for COVID. Patient states she has not taken her insulin today. Associated symptoms: Other - See HPI Exacerbated by: Other - See HPI Relieved by: Other - See HPI - Related Data Allergies/Adverse Reactions: exenatide [From Byetta] Allergy (Intermediate, Verified 03/28/20 09:23) Hives Past Medical History - General Information source: Patient - Social History Smoking Status: Never Smoker Drug Abuse: None Family History: Reviewed & Not Pertinent, CAD - Past Medical History Cardiac Medical History: Reports: Hx Hypercholesterolemia Denies: Hx Coronary Artery Disease, Hx Heart Attack, Hx Hypertension Pulmonary Medical History: Reports: Hx Asthma - MILD, Hx Pneumonia Denies: Hx Bronchitis, Hx COPD Neurological Medical History: Denies: Hx Cerebrovascular Accident, Hx Seizures Endocrine Medical History: Reports: Hx Diabetes Mellitus Type 2 Renal/ Medical History: Denies: Hx End Stage Renal Disease, Hx Kidney Stones, Hx Peritoneal Dialysis, Hx Renal Insufficiency GI Medical History: Reports: Hx Gastroesophageal Reflux Disease. Denies: Hx Hepatitis, Hx Hiatal Hernia Musculoskeletal Medical History: Reports Hx Arthritis, Reports Hx Musculoskeletal Deformity, Reports Hx Musculoskeletal Trauma Skin Medical History: Reports Hx Psoriasis Psychiatric Medical History: Reports: Hx Depression Traumatic Medical History: Reports: Hx Fractures Infectious Medical History: Denies: Hx Hepatitis Past Surgical History: Reports: Hx Cardiac Catheterization, Hx Hysterectomy. Denies: Hx Open Heart Surgery, Hx Pacemaker - Immunizations Immunizations up to date: Yes Hx Diphtheria, Pertussis, Tetanus Vaccination: Yes Hx Pneumococcal Vaccination: 07/20/10 Review of Systems - Review of Systems Constitutional: No symptoms reported EENT: No symptoms reported Cardiovascular: No symptoms reported Respiratory: Cough, Short of breath Gastrointestinal: Abdominal pain Genitourinary: Dysuria, Frequency, Flank pain, Urgency Female Genitourinary: No symptoms reported Musculoskeletal: No symptoms reported Skin: No symptoms reported Hematologic/Lymphatic: No symptoms reported Neurological/Psychological: No symptoms reported -: Yes All other systems reviewed and negative Physical Exam - Vital signs Vitals: Temp Pulse Resp BP Pulse Ox 97.8 F 88 18 169/69 H 94 04/15/20 22:51 04/15/20 22:51 04/15/20 22:51 04/15/20 22:51 04/15/20 22:51 - Notes Notes: CONSTITUTIONAL [Vital signs reviewed, Patient appears comfortable, Alert and oriented X 3, Normal stature.] HEAD [Atraumatic, Normocephalic.] EYES [Eyes are normal to inspection, No discharge from eyes, Extraocular muscles intact, Sclera are normal, Conjunctiva are normal.] NECK [Normal ROM, No jugular venous distention, No meningeal signs, no carotid bruit.] RESPIRATORY CHEST [Chest is nontender, Breath sounds normal, No respiratory distress.] CARDIOVASCULAR [RRR, No murmurs, Normal S1 S2, No rub, No gallop.] ABDOMEN [Abdomen is nontender, No pulsatile masses, No other masses, Bowel sounds normal, No distension, No peritoneal signs, No hernias.] BACK [There is no CVA Tenderness, There is no tenderness to palpation, Normal inspection.] UPPER EXTREMITY [Inspection normal, No cyanosis, No clubbing, No edema, 2+ radial pulses.] LOWER EXTREMITY [Inspection normal, No cyanosis, No clubbing, No edema, No calf tenderness, 2+ femoral pulses.] NEURO [No focal motor deficits, No focal sensory deficits, Speech normal.] SKIN [Skin is warm, Skin is dry, Skin is normal color.] LYMPHATIC [No adenopathy in neck.] PSYCHIATRIC [Normal affect. ] Course - Re-evaluation Re-evalutation: 04/16/20 06:06 Patient states that she feels much better at this time. Patient's repeat fingerstick blood sugar is 226. Results of ED MSE discussed with patient. Patient also states that she feels like she can breathe much better. Emergency signs and symptoms, reasons to return to the emergency department discussed with patient. Medical decision making: Patient states that she has a history of pyelonephritis and states the symptoms she was having in terms of her pain seemed very much similar to prior episodes of pyelonephritis. While there is not clear-cut evidence of pyelonephritis based on the patient's urine sample or CT scan, the patient's constellation of symptoms including dysuria, frequency and urgency and lack of evidence of kidney stone on CT lead me to believe that her symptoms are most consistent with some type of urinary tract infection. Patient states she has had Levaquin in the past without adverse effect. This MD discussed my medical decision making and thinking with the patient and plan to treat. Patient was agreeable to this. - Vital Signs Vital signs: Temp Pulse Resp BP Pulse Ox 97.8 F 88 18 169/69 H 94 04/15/20 22:51 04/15/20 22:51 04/15/20 22:51 04/15/20 22:51 04/15/20 22:51 - Laboratory Result Diagrams: 04/15/20 23:59 04/15/20 23:59 Laboratory results interpreted by me: 04/15/20 04/15/20 04/15/20 23:53 23:59 23:59 WBC 11.0 H RDW 15.8 H Lymph % (Auto) 12.5 L Absolute Neuts (auto) 8.3 H BUN 29 H Est GFR ( Amer) 56 L Est GFR (MDRD) Non-Af 46 L Glucose 410 H* POC Glucose Urine Protein 100 H Urine Glucose (UA) >=500 H Urine Blood MODERATE H 04/16/20 05:53 WBC RDW Lymph % (Auto) Absolute Neuts (auto) BUN Est GFR ( Amer) Est GFR (MDRD) Non-Af Glucose POC Glucose 226 H Urine Protein Urine Glucose (UA) Urine Blood - Diagnostic Test Radiology reviewed: Reports reviewed Discharge - Discharge Clinical Impression: Dysuria, Hyperglycemia due to type 2 diabetes mellitus Asthma exacerbation Qualifiers: Asthma severity: unspecified severity Asthma persistence: unspecified Qualified Code(s): J45.901 - Unspecified asthma with (acute) exacerbation Condition: Stable Disposition: HOME, SELF-CARE Additional Instructions: Return to the Emergency Department without delay if any worse. HOME CARE INSTRUCTIONS & INFORMATION: Thank you for choosing us for your medical needs. We hope you're satisfied with the care you received. After you leave, you must properly care for your problem and, at the same time, observe its progress. Any condition can change. Some illnesses can change rapidly over hours or days. If your condition worsens, return to the Emergency Department or see your physician promptly. ABOUT YOUR X-RAYS AND EKG'S: If you had an EKG or X-rays taken, they have been read by the Emergency Physician. The X-rays and EKG's will also be read by a Radiologist or [employer] Specialist within 24 hours. If discrepancies are noted, you will be notified by telephone. Please be certain the ED has a correct telephone number & address where you can be reached. Also, realize that some fractures or abnormalities do not show up on initial X-rays. If your symptoms continue, see your physician. ABOUT YOUR LABORATORY TEST: If you had laboratory tests, the results have been reviewed by the Emergency Physician. Some test results (for example cultures) may not be available for several days. You will be contacted if any test result shows you need additional treatment. Please be certain the ED has a correct telephone number and address where you can be reached. ABOUT YOUR MEDICATIONS: You will receive instructions on how to take your medicine on the prescription label you receive. Additional information may be provided by the Pharmacy. If you have questions afterwards, call the ED for clarification or further instructions. Some prescribed medications may cause drowsiness. Do not perform tasks such as driving a car or operating machinery without consulting your Pharmacist. If you feel you need a refill of pain medication, your condition will need re-evaluation. Please do not call for a refill of any medication. ABOUT YOUR SIGNATURE: Signature of this document acknowledges to followin. Understanding that you received emergency treatment and that you may be r eleased before al medical problems are known or treated. Please be certain the ED has a correct phone number & address where you can be reached. 2. Acknowledgement that you will arrange for follow-up care as recommended. 3. Authorization for the Emergency Physician to provide information to your follow-up Physician in order to maximize your care. AT ANY TIME, IF YOUR SYMPTOMS CHANGE SIGNIFICANTLY OR WORSEN OR YOU DEVELOP NEW SYMPTOMS, RETURN TO THE EMERGENCY DEPARTMENT IMMEDIATELY FOR RE-EVALUATION. OUR GOAL IS TO PROVIDE EXCELLENT MEDICAL CARE! WE HOPE THAT WE HAVE MET YOUR EXPECTATIONS DURING YOUR EMERGENCY DEPARTMENT VISIT AND THAT YOU FEEL YOU HAVE RECEIVED EXCELLENT CARE! Prescriptions: Prednisone [Deltasone 10 mg Tablet] 10 mg PO ASDIR PRN #21 tablet PRN Reason: Levofloxacin [Levaquin 750 mg Tablet] 750 mg PO DAILY 4 Days #4 tablet Referrals: GRANT PIERRE MD [Primary Care Provider] - Follow up as needed
--- NOTE | 2020-04-16 04:25 | RADIOLOGY REPORT (SQ) ---
CLINICAL INDICATION: cough. TECHNIQUE: A single portable AP view was obtained of the chest at 0402 hours. COMPARISON: August 12, 2019. FINDINGS: The cardiomediastinal silhouette is normal. The lungs demonstrate interstitial prominence, similar to prior. No airspace consolidation. No evidence of effusion or pneumothorax. The visualized bones are unremarkable. IMPRESSION: Interstitial prominence, similar to prior.
--- NOTE | 2020-04-16 04:30 | RADIOLOGY REPORT (SQ) ---
CLINICAL INDICATION: right flank pain and hematuria. . TECHNIQUE: Noncontrast spiral axial CT imaging was obtained of the abdomen and pelvis with multiplanar reconstructions. This exam was performed according to our departmental dose-optimization program, which includes automated exposure control, adjustment of the mA and/or kV according to patient size and/or use of iterative reconstruction techniques. COMPARISON: March 16, 2019. CORRELATION: None. FINDINGS: Abdomen: The lung bases are grossly clear. The heart is prominent with coronary calcification. No evidence of pleural or pericardial fluid. The liver is enlarged at 24.2 cm. It is heterogeneous. Mildly fatty infiltrated without focal fatty sparing in the gallbladder fossa. The gallbladder is nondistended without inflammatory change. The pancreas is of grossly normal contour on this noncontrast examination. The spleen is unremarkable. The adrenals are unremarkable. The kidneys appear grossly normal without evidence of urolithiasis or hydronephrosis. There is no evidence of free air. No free fluid. No bulky adenopathy. Abdominal aorta is nonaneurysmal. Pelvis: The bowel is nonobstructed. The bowel is unopacified with oral contrast. Pelvic contents are unremarkable. The appendix is not seen. Tiny fat-containing hernia at the level the umbilicus.. Visualized bones demonstrate age-appropriate osteophytes. 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 IMPRESSION: No acute intra-abdominal process. No adverse change. Hepatic steatosis and hepatomegaly again seen, no adverse change. The cause of the patient's right flank pain and hematuria is not identified on this examination..
[2020-04-16] MEDS ORDERED: LEVOFLOXACIN 750 MG TABLET PO ONE (06:12)
[2020-04-16 06:29] VITALS: BP 150/69
== END 2020-04-16 06:29 | disposition home or self-care (01) ==
LOC: ER 22:33
DX: J45.901 Unspecified asthma with (acute) exacerbation (principal); E11.65 Type 2 diabetes mellitus with hyperglycemia; R30.0 Dysuria; R10.9 Unspecified abdominal pain; R35.0 Frequency of micturition
CPT/HCPCS: 94640; 99285; 96360; 96361; 36415; 87086; 82962; 83690; 84703; 85025; 87088; 80053; 81001; 71045; 74176; J2930; J1885; J1815; J7030; J7040; J3490 ×2; 87186; J7614

== ENCOUNTER 2020-04-24 22:11 | Emergency (ER) | payer MEDICAID ==
--- NOTE | 2020-04-24 23:43 | ER Document Report ---
ED Medical Screen (RME) - General Chief Complaint: Flank Pain Stated Complaint: FLANK PAIN Time Seen by Provider: 04/24/20 23:38 Primary Care Provider: GRANT PIERRE MD [Primary Care Provider] - Follow up as needed Mode of Arrival: Ambulatory Information source: Patient Notes: 54-year-old female presented to ED for complaint of right flank pain that started again today. She states she was seen here about 2 weeks ago for the same thing. She states she did have a CT and they told her that there was no kidney stone. She states she did have 800 mg of ibuprofen this morning but has not had any since then. She states she did not get a urine culture and she thought they told her that it was positive for something but she does not know what and has not been taking antibiotics. I have greeted and performed a rapid initial assessment of this patient. A comprehensive ED assessment and evaluation of the patient, analysis of test results and completion of medical decision making process will be conducted by an additional ED providers. TRAVEL OUTSIDE OF THE [place] IN LAST 30 DAYS: No - Related Data Allergies/Adverse Reactions: exenatide [From Byetta] Allergy (Intermediate, Verified 03/28/20 09:23) Hives Past Medical History - Social History Family history: None - Past Medical History Cardiac Medical History: Reports: Hx Hypercholesterolemia Denies: Hx Coronary Artery Disease, Hx Heart Attack, Hx Hypertension Pulmonary Medical History: Reports: Hx Asthma - MILD, Hx Pneumonia Denies: Hx Bronchitis, Hx COPD Neurological Medical History: Denies: Hx Cerebrovascular Accident, Hx Seizures Endocrine Medical History: Reports: Hx Diabetes Mellitus Type 2 Renal/ Medical History: Denies: Hx End Stage Renal Disease, Hx Kidney Stones, Hx Peritoneal Dialysis, Hx Renal Insufficiency GI Medical History: Reports: Hx Gastroesophageal Reflux Disease. Denies: Hx Hepatitis, Hx Hiatal Hernia Musculoskeltal Medical History: Reports Hx Arthritis, Reports Hx Musculoskeletal Deformity, Reports Hx Musculoskeletal Trauma Skin Medical History: Reports Hx Psoriasis Psychiatric Medical History: Reports: Hx Depression Traumatic Medical History: Reports: Hx Fractures Infectious Medical History: Denies: Hx Hepatitis Past Surgical History: Reports: Hx Cardiac Catheterization, Hx Hysterectomy. Denies: Hx Open Heart Surgery, Hx Pacemaker - Immunizations Immunizations up to date: Yes Hx Diphtheria, Pertussis, Tetanus Vaccination: Yes Physical Exam - Vital signs Vitals: Temp Pulse Resp BP Pulse Ox 98.1 F 86 18 151/72 H 95 04/24/20 22:31 04/24/20 22:31 04/24/20 22:31 04/24/20 22:31 04/24/20 22:31 Course - Vital Signs Vital signs: Temp Pulse Resp BP Pulse Ox 98.1 F 86 18 151/72 H 95 04/24/20 22:31 04/24/20 22:31 04/24/20 22:31 04/24/20 22:31 04/24/20 22:31 Doctor's Discharge - Discharge Referrals: GRANT PIERRE MD [Primary Care Provider] - Follow up as needed
[2020-04-24] MEDS ORDERED: NITROFURANTOIN MONOHYD/M-CRYST 100 MG CAPSULE PO ONE (23:44)
[2020-04-24] MEDS ORDERED: IBUPROFEN 800 MG TABLET PO ONE (23:45)
[2020-04-24] MEDS ORDERED: CIPROFLOXACIN HCL 500 MG TABLET PO ONE (23:47)
[2020-04-25 00:11] LABS: APPEARANCE,URINE CLEAR; BILIRUBIN,URINE NEGATIVE (NEGATIVE); COLOR,URINE YELLOW; GLUCOSE, URINE 50 mg/dL (NEGATIVE); KETONES,URINE NEGATIVE (NEGATIVE); LEUKOCYTE ESTERASE,URINE NEGATIVE (NEGATIVE); NITRITE,URINE NEGATIVE (NEGATIVE); PROTEIN,URINE >=500 mg/dL (NEGATIVE); URINE SPECIFIC GRAVITY 1.024; UROBILINOGEN,URINE NEGATIVE mg/dL (<2.0)
[2020-04-25 00:25] LABS: ABSOLUTE EOSINOPHILS # (AUTO) 0.5 10^3/uL (0.0-0.6); ABSOLUTE LYMPHOCYTES (AUTO) 1.6 10^3/uL (0.5-4.7); ABSOLUTE NEUT (AUTO) 7.3 10^3/uL (1.7-8.2); BASOPHILS % (AUTO) 0.3 % (0-2); EOSINOPHILS % (AUTO) 4.7 % (0-6); HEMATOCRIT 38.1 % (36.0-47.0); HEMOGLOBIN 13.5 g/dL (12.0-15.5); LYMPHOCYTES % (AUTO) 15.4 % (13-45); MEAN CORPUSCULAR HEMOGLOBIN 32.6 pg (27.0-33.4); MEAN CORPUSCULAR HGB CONC 35.4 g/dL (32.0-36.0); MEAN CORPUSCULAR VOLUME 92 fl (80-97); MONOCYTES % (AUTO) 9.5 % (3-13); PLATELET COUNT 316 10^3/uL (150-450); RED BLOOD COUNT 4.14 10^6/uL (3.72-5.28); RED CELL DISTRIBUTION WIDTH 15.5 % (11.5-14.0); SEGMENTED NEUTROPHILS % (AUTO) 70.1 % (42-78); TOTAL CELLS COUNTED % (AUTO) 100 %; WHITE BLOOD COUNT 10.4 10^3/uL (4.0-10.5)
[2020-04-25 00:50] LABS: ALBUMIN 3.4 g/dL (3.5-5.0); ALKALINE PHOSPHATASE 101 U/L (38-126); ANION GAP 6 (5-19); ASPARTATE AMINO TRANSFERASE 15 U/L (14-36); BILIRUBIN,DIRECT 0.3 mg/dL (0.0-0.4); BILIRUBIN,TOTAL 0.5 mg/dL (0.2-1.3); BLOOD UREA NITROGEN 36 mg/dL (7-20); CALCIUM 9.2 mg/dL (8.4-10.2); CARBON DIOXIDE 33 mmol/L (22-30); CHLORIDE 100 mmol/L (98-107); GLUCOSE 161 mg/dL (75-110); POTASSIUM 4.7 mmol/L (3.6-5.0); TOTAL PROTEIN 6.6 g/dL (6.3-8.2)
[2020-04-25 01:10] VITALS: BP 145/71
--- NOTE | 2020-04-25 01:16 | RADIOLOGY REPORT (SQ) ---
EXAM DESCRIPTION: US ABDOMEN LIMITED COMPLETED DATE/TME: 04/24/2020 23:41 CLINICAL HISTORY: 54 years, Female, Right flank pain COMPARISON: None. TECHNIQUE: LIMITATIONS: None. FINDINGS: The right kidney is enlarged, measuring 16.2 cm in length. No hydronephrosis, mass or stone involving the right kidney. The liver is hyperechogenic, compatible with fatty infiltration. No gallstones. No evidence of gallbladder wall thickening or pericholecystic fluid. The senior nuclear medicine technologist reported a negative sonographic Carreon sign. The pancreatic head and body are unremarkable. The pancreatic tail was obscured by bowel gas. No evidence of biliary tree dilatation. IMPRESSION: Enlarged right kidney. Fatty liver. copyright 2010 [employer]- All Rights Reserved
== END 2020-04-25 04:15 | disposition left against medical advice (07) ==
LOC: ER 22:11
DX: R10.9 Unspecified abdominal pain (principal); E78.00 Pure hypercholesterolemia, unspecified; E11.9 Type 2 diabetes mellitus without complications; Z90.710 Acquired absence of both cervix and uterus
CPT/HCPCS: 99281; 36415; 87086; 83690; 85025; 80053; 81001; 76705; J3490 ×2

== ENCOUNTER 2020-06-06 09:27 | Day surgery (SDC) | payer MEDICAID ==
[~2020-06-06 09:27] MED LIST changes: +KETOROLAC TROMETHAMINE 0.45% 4 DROP/0.4 ML DROPERETTE OD PRN; -KETOROLAC TROMETHAMINE 0.45% 4 DROP/0.4 ML DROPERETTE OS PRN; -LIDOCAINE 1%/PHENYLEPHRINE 1.5% 0.8 ML SYRINGE ONE; +LIDOCAINE 1%/PHENYLEPHRINE 1.5% 1 ML VIAL ONE
[2020-06-06] MEDS ORDERED: ONDANSETRON HCL INJ/PF 4 MG/2 ML SDV ONE (09:43)
[2020-06-06] MEDS ORDERED: FENTANYL CITRATE INJ/PF 100 MCG/2 ML AMPUL ONE (09:44)
[2020-06-06] MEDS ORDERED: MIDAZOLAM 2 MG/2 ML INJ ONE (09:44)
[2020-06-06] MEDS: CYCLOPENTOLATE 0.2%/PHENYLEPHRINE 1% OPH SOLN 2 ML OD PRN ×3 (10:11→10:31)
[2020-06-06] MEDS: TROPICAMIDE 1% OPH SOLN 15 ML OD PRN ×3 (10:11→10:31)
[2020-06-06] MEDS: BESIFLOXACIN HCL 0.6% OPH SUSP 5 ML BOTTLE OD PRN ×4 (10:11→11:07)
[2020-06-06] MEDS: TETRACAINE HCL 0.5% OPH SOLN 4 ML OD PRN ×3 (10:12→10:50)
[2020-06-06] MEDS: PREDNISOLONE ACETATE 1% OPH SUSP 5 ML OD PRN ×2 (11:00→11:07)
[2020-06-06] MEDS: DORZOLAMIDE HCL 2%/TIMOLOL MALEAT 0.5% OPH SOLN 10 ML OD PRN ×2 (11:00→11:07)
--- NOTE | 2020-06-06 13:11 | Operative Report ---
Operative Report-[facility] Operative Report: DATE OF SURGERY: June 06, 2020 PREOPERATIVE DIAGNOSIS: NUCLEAR CATARACT, RIGHT EYE. POSTOPERATIVE DIAGNOSIS: NUCLEAR CATARACT, RIGHT EYE. PROCEDURE PERFORMED: PHACOEMULSIFICATION WITH POSTERIOR CHAMBER INTRAOCULAR LENS IMPLANT, RIGHT EYE. SURGEON: Tj Hernandez DO MEDICATIONS AND ANESTHESIA: Versed: IV Versed Tetracaine drops: 1 to 2 drops given as needed COMPLICATION: None INDICATIONS FOR SURGERY: Medical necessity: Best corrected visual acuity worse than 20/40 secondary to cataracts with impairment of ability to carry out needs or desired activities, blurred vision, visual distortion, reduced contrast sensitivity and/or glare with association functional impairment and supporting documentation/testing, and cataracts causing symptomatic impairment of visual functions not corrected with tolerable changes in glasses or contact lenses interfering with activities of daily life. PROCEDURE: Consent: The risks, benefits and alternatives of this procedures was discussed with the patient. The patient read and signed the consent forms, was identified and was seated in the exam chair. IOL: MX 60 E 22.5 IOL Diopters: Phacoemulsification with posterior chamber intraocular lens implant: The face was prepped with 5% povidone iodine solution, and a few drops of 5% povidone iodine solution was instilled into the inferior fornix. A non-fenestrated drape was placed over the eye and the lids were parted with the speculum. A paracentesis was made with a 15 degree blade, and 1% lidocaine MPF followed by viscoelastic was injected into the anterior chamber. A 2.4 mm metal micro- keratome was used to create a temporal clear corneal incision. A circular anterior capsulorrhexis was created, followed by hydro-dissection and hydro- delineation. The phacoemulsification hand piece was inserted and the nucleus was removed with the Phaco chop technique. The irrigation-aspiration hand piece was used to remove the residual cortex, and vacuum the posterior capsule. The capsular bag was inflated and viscoelastic and the above-mentioned IOL was injected into the eye with care to insert both leaning and trailing haptics in the capsular bag. The irrigation/aspiration hand piece was reinserted to remove residual viscoelastic from the capsular bag and anterior chamber. The corneal incision was hydrated, and anterior chamber was inflated with sterile BSS via the paracentesis site, and found to be watertight. Postop medication: 1 drop of prednisolone into operative by followed by 1 drop of Cosopt into operative eye followed by 1 drop of Besivance intraoperative by other:
== END 2020-06-06 11:38 | disposition home or self-care (01) ==
LOC: SC 09:27
PROVIDERS: ATTEND Ophthalmology
DX: H25.11 Age-related nuclear cataract, right eye (principal); I10 Essential (primary) hypertension; K21.9 Gastro-esophageal reflux disease without esophagitis; E10.36 Type 1 diabetes mellitus with diabetic cataract; Z79.4 Long term (current) use of insulin; J45.909 Unspecified asthma, uncomplicated
CPT/HCPCS: 66984; 82962; V2632; J2250; J3490 ×3; J0171; J2405; J3010